=== PATIENT | male | born 1930 | race Caucasian/White ===

== ENCOUNTER 2017-08-12 17:26 | Inpatient (IN) ==
--- NOTE | 2017-08-12 17:55 | Emergency Department Note ---
Disposition Clinical Impression: Altered mental status Qualifiers: Altered mental status type: unspecified Qualified Code(s): R41.82 - Altered mental status, unspecified Fever Qualifiers: Fever type: unspecified Qualified Code(s): R50.9 - Fever, unspecified Disposition: Admitted As Inpatient Condition: Fair Referrals: Keven Rice MD [Primary Care Provider] - Forms: ED Satisfaction Letter Time of Disposition: 21:46 General Adult HPI - General Chief complaint: ED Altered Mental Status Stated complaint: AMS Time Seen by Provider: 08/12/17 17:27 Source: patient, EMS Mode of arrival: ambulatory Limitations: no limitations Nursing Notes Reviewed: Yes Vital Signs Reviewed: Yes - History of Present Illness HPI Narrative: Patient is an 86-year-old male that presents the emergency department with altered mental status. Family states that he seemed to be not acting himself this morning when he woke up. States that he seemed to be intermittently confused throughout the day and became weaker as the day went on. Patient states that he has been coughing and is coughing up a small amount of mucus. Family states that he said he had a peak today but was unable to produce any urine but has not been complaining of any urinary symptoms. States that he has felt warm to the touch but did not measure any fever. Patient states that he is just overall feeling weak at this time. Pain Scale: 0 - Related Data Home Medications Medication Instructions Recorded Confirmed Glimepiride [Amaryl] 1 mg PO BID 08/12/17 08/12/17 Lisinopril [Zestril] 40 mg PO DAILY 08/12/17 08/12/17 Metformin HCl [Glucophage] 1,000 mg PO BIDWM 08/12/17 08/12/17 Metoprolol Succinate [Toprol Xl] 50 mg PO DAILY 08/12/17 08/12/17 Sildenafil Citrate [Revatio] 20 - 100 mg PO DAILY PRN 08/12/17 08/12/17 Simvastatin [Zocor] 20 mg PO HS 08/12/17 08/12/17 Triamterene/Hydrochlorothiazid 1 cap PO DAILY 08/12/17 08/12/17 [Dyazide 37.5-25 Capsule] Allergies Allergy/AdvReac Type Severity Reaction Status Date / Time No Known Allergies Allergy Verified 08/12/17 17:38 All systems ED: reviewed and negative except as stated. Constitutional: Reports: fever Cardiovascular: Denies: chest pain Respiratory: Reports: cough, sputum production Gastrointestinal: Denies: abdominal pain Genitourinary: Reports: other (Difficulty urinating ) Neurological: Reports: weakness Past Medical History - Past Medical History Medical history: Reports: diabetes, hypertension Psychiatric history: Reports: no psych history - Social History Smoking Status: Never smoker Alcohol use: Reports: rarely Drug use: Reports: none Physical Exam - General Limitations: altered mental status General appearance: in no apparent distress, lethargic - Head Head exam: atraumatic, normocephalic - Eye Eye exam: Present: normal appearance, EOMI - Neck Neck exam: Present: normal inspection, full ROM, trachea midline - Respiratory Respiratory exam: Present: other (Crackles in bilateral bases). Absent: respiratory distress, wheezes - Cardiovascular Cardiovascular exam: Present: normal rhythm, irregular rhythm, normal heart sounds, +S1, +S2 - Abdominal Exam Abdominal exam: Present: soft, Non-Tender, normal bowel sounds - Neurological Exam Neurological exam: Present: alert, oriented X3, CN II-XII intact - Expanded Neurological Exam Cranial nerves: EOM function (II, III, IV, ): Normal, facial sensation (V): Normal, facial palsy (VII): Normal, gag reflex (IX): Normal, spinal accessory function (XI): Normal, tongue deviation (XII): Normal Cerebellar function: finger to nose: Normal Motor strength - LUE: 5/5 Motor strength - RUE: 5/5 Motor strength - LLE: 5/5 Motor strength - RLE: 5/5 Sensory exam upper extremity: light touch: Normal Sensory exam lower extremity: light touch: Normal Coma Scale Eye Opening: Spontaneous Coma Scale Motor Response: Obeys Commands Coma Scale Verbal Response: Oriented Coma Scale Total: 15 - Psychiatric Psychiatric exam: Present: normal affect, normal mood - Skin Skin exam: Present: warm, dry, other (Patient has multiple skin lesions on the top of his head) Course - Reevaluation(s) Reevaluation #1: Patient states that he is feeling decent at this time but still weak. Patient was found to have a elevated white blood cell count on CBC. There is no identifiable source of infection at this time. Due to the patient being febrile , and respiratory symptoms, negative chest x-ray, negative urinalysis and no acute findings on CT scan we will perform an influenza swab to evaluate for possible influenza. Time: 19:40 - Consultations Consultation #1: Called and spoke with the admitting hospitalist requested that the patient be started on Rocephin, vancomycin and acyclovir. We will also place a consult at the request for interventional radiology to perform a lumbar puncture. The admitting hospitalist also requested that a CT scan of the chest to rule out possible. Patient has been accepted to their service. The patient be admitted to the hospital this time for further evaluation and management. Time: 21:43 Vital Signs Temperature 100.8 F H 08/12/17 17:35 Pulse Rate 88 08/12/17 17:35 Respiratory Rate 18 08/12/17 17:35 Blood Pressure 127/60 08/12/17 17:35 O2 Sat by Pulse Oximetry 93 08/12/17 17:35 Temperature 99.4 F 08/12/17 21:52 Pulse Rate 80 08/12/17 21:52 Respiratory Rate 16 08/12/17 21:52 Blood Pressure 120/59 08/12/17 21:52 O2 Sat by Pulse Oximetry 93 08/12/17 21:52 Oxygen Delivery Oxygen Delivery Room Air Medical Decision Making - MDM Narrative Medical decision making narrative: Patient presents emergency Department with altered mental status laboratory testing and a CT scan of the head will be obtained. Patient had an elevated white blood cell count. No evidence of UTI. Chest x-ray was negative, CT scan of the head did not show any acute intracranial abnormality. Patient was febrile of 100.8 while here in the emergency department. Patient continued to have generalized weakness and fatigue. There is no identifiable source of infection at this time. The patient will need to be admitted to the hospital for further evaluation and management. An influenza swab was sent and is negative. - Medical Records Medical records reviewed: Yes I reviewed the patient's medical records. - Lab Data Lab results reviewed: Yes I reviewed the patient's lab results. Result diagrams: 08/12/17 18:20 08/12/17 18:20 Lab Results 08/12/17 08/12/17 08/12/17 Range/Units 17:41 18:20 18:20 WBC 21.0 H (4.3-11.1) K/mcL RBC 4.38 (4.19-5.50) M/mcL Hgb 12.9 (12.9-16.9) g/dL Hct 39.2 (37.5-50.1) % MCV 89.5 (83.0-100.0) fL MCH 29.5 (28.0-33.3) pg MCHC 32.9 (31.6-35.5) g/dL RDW 13.7 (11.5-14.5) % Plt Count 218 (140-400) K/mcL MPV 9.7 (9.4-12.4) fL Immature Gran % 0.8 (0-4) % Seg Neutrophils % 92.1 % Lymphocytes % 1.8 % Monocytes % 5.2 % Eosinophils % 0.0 % Basophils % 0.1 % Neutrophils # 19.3 H (1.6-8.9) K/mcL Lymphocytes # 0.4 L (0.6-4.6) K/mcL Monocytes # 1.1 (0.0-1.3) K/mcL Eosinophils # 0.0 (0.0-0.6) K/mcL Basophils # 0.0 (0.0-0.2) K/mcL PT 12.8 H (9.4-12.1) Seconds INR 1.1 APTT 28.5 (26.0-36.0) Seconds Sodium (136-145) mEq/L Potassium (3.5-5.1) mEq/L Chloride (98-107) mEq/L Carbon Dioxide (23-29) mEq/L BUN (8-23) mg/dL Creatinine (0.70-1.30) mg/dL Est GFR ( Amer) (> 60) Est GFR (Non-Af Amer) (> 60) BUN/Creatinine Ratio (6-26) Glucose (70-105) mg/dL POC Glucose 158 H (70-99) mg/dL Calculated Osmolality (280-300) Lactic Acid (0.5-2.2) mmol/L Calcium (8.6-10.3) mg/dL Total Bilirubin (0.3-1.0) mg/dL Direct Bilirubin (0.0-0.2) mg/dL Indirect Bilirubin (0.0-1.2) mg/dL AST (13-39) Units/L ALT (7-52) Units/L Alkaline Phosphatase (34-104) Units/L Troponin I (< 0.04) ng/mL Serum Total Protein (6.4-8.9) g/dL Albumin (3.5-5.7) g/dL Globulin (2.4-3.5) g/dL Albumin/Globulin Ratio (1.1-2.2) Urine Color (Yellow) Urine Clarity (Clear) Urine pH (5.0-8.0) pH Units Ur Specific Hope (1.010-1.025) Urine Protein (Neg-Trace) mg/dL Urine Glucose (UA) (Normal) mg/dL Urine Ketones (Negative) mg/dL Urine Blood (Negative) Urine Nitrite (Negative) Urine Bilirubin (Negative) Urine Urobilinogen (Normal) mg/dL Ur Leukocyte Esterase (Negative) Urine Microscopic RBC (0-3) per hpf Urine Microscopic WBC (0-3) per hpf Ur Squamous Epith Cells (None-Few) per lpf Urine Bacteria (None-Few) per hpf Hyaline Casts (None-Few) per lpf Ur Culture Indicated? (NO) Ethyl Alcohol (Less than 10) mg/dL 08/12/17 08/12/17 08/12/17 Range/Units 18:20 18:28 18:40 WBC (4.3-11.1) K/mcL RBC (4.19-5.50) M/mcL Hgb (12.9-16.9) g/dL Hct (37.5-50.1) % MCV (83.0-100.0) fL MCH (28.0-33.3) pg MCHC (31.6-35.5) g/dL RDW (11.5-14.5) % Plt Count (140-400) K/mcL MPV (9.4-12.4) fL Immature Gran % (0-4) % Seg Neutrophils % % Lymphocytes % % Monocytes % % Eosinophils % % Basophils % % Neutrophils # (1.6-8.9) K/mcL Lymphocytes # (0.6-4.6) K/mcL Monocytes # (0.0-1.3) K/mcL Eosinophils # (0.0-0.6) K/mcL Basophils # (0.0-0.2) K/mcL PT (9.4-12.1) Seconds INR APTT (26.0-36.0) Seconds Sodium 134 L (136-145) mEq/L Potassium 4.1 (3.5-5.1) mEq/L Chloride 99 (98-107) mEq/L Carbon Dioxide 25 (23-29) mEq/L BUN 26 H (8-23) mg/dL Creatinine 1.12 (0.70-1.30) mg/dL Est GFR ( Amer) > 60 (> 60) Est GFR (Non-Af Amer) > 60 (> 60) BUN/Creatinine Ratio 23 (6-26) Glucose 197 H (70-105) mg/dL POC Glucose (70-99) mg/dL Calculated Osmolality 288 (280-300) Lactic Acid 1.4 (0.5-2.2) mmol/L Calcium 9.4 (8.6-10.3) mg/dL Total Bilirubin 0.5 (0.3-1.0) mg/dL Direct Bilirubin 0.3 H (0.0-0.2) mg/dL Indirect Bilirubin 0.2 (0.0-1.2) mg/dL AST 13 (13-39) Units/L ALT 11 (7-52) Units/L Alkaline Phosphatase 56 (34-104) Units/L Troponin I < 0.03 (< 0.04) ng/mL Serum Total Protein 6.6 (6.4-8.9) g/dL Albumin 3.8 (3.5-5.7) g/dL Globulin 2.8 (2.4-3.5) g/dL Albumin/Globulin Ratio 1.4 (1.1-2.2) Urine Color Yellow (Yellow) Urine Clarity Clear (Clear) Urine pH 5.0 (5.0-8.0) pH Units Ur Specific Hope 1.022 (1.010-1.025) Urine Protein Negative (Neg-Trace) mg/dL Urine Glucose (UA) Normal (Normal) mg/dL Urine Ketones 15 H (Negative) mg/dL Urine Blood Moderate H (Negative) Urine Nitrite Negative (Negative) Urine Bilirubin Negative (Negative) Urine Urobilinogen Normal (Normal) mg/dL Ur Leukocyte Esterase Negative (Negative) Urine Microscopic RBC 15-30 H (0-3) per hpf Urine Microscopic WBC 0-3 (0-3) per hpf Ur Squamous Epith Cells Many H (None-Few) per lpf Urine Bacteria None Seen (None-Few) per hpf Hyaline Casts None Seen (None-Few) per lpf Ur Culture Indicated? NO (NO) Ethyl Alcohol < 10 (Less than 10) mg/dL - Radiology Data Radiology results reviewed: Yes I reviewed the patient's radiology results. Chest X-Ray 08/12/17 17:50 IMPRESSION: No acute cardiopulmonary disease. D/ / 08/12/2017 19:03:58 Clarke Jimenez MD / mikala Interpreting Provider: Clarke Jimenez MD Head CT 08/12/17 17:50 IMPRESSION: No acute intracranial abnormality. D/ / Raúl Calhoun / Raúl Calhoun Interpreting Provider: Raúl Calhoun - EKG Data EKG #1 EKG attestation: Yes I reviewed and interpreted this EKG. EKG results narrative: EKG showed a sinus rhythm with sinus arrhythmia with some nonspecific ST changes. Rate of 76 bpm, AL interval 195, QRS duration of 87, QTc of 391 with a normal axis. Patient's EKG was compared to previous on 05/13/14 which showed a sinus rhythm at a rate of 72 bpm. Attestation Statement - Attestation Attestation: I examined this patient and my medical decision-making was reviewed with the Resident Physician. I agree with the documented findings, disposition and treatment plan as described except to the extent set forth below. Findings consistent with altered mental status as well as systemic inflammatory response syndrome. I do not have a obvious source of infection although he does have a lesion on his scalp. He is non-meningismus on exam. He is following commands and is no neurological deficit. He has no evidence of urinary tract infection or pulmonary infection but he does describe symptoms of URI. We will obtain a CT scan of the chest rule out underlying pneumonia that might not be present on x-ray. We will send viral respiratory pattern and attempt to prevent lumbar puncture. Due to the patient's body habitus as well as age I do not feel bedside lumbar puncture will be obtainable and thus I will place an order for interventional radiology-assisted lumbar puncture at the request of her hospitalist team. We will start antibiotics to cover for meningeal infection although I do not suspect this is the cause of the patient's fever especially in the absence of meningismus. The patient will be admitted to the hospital for further management.
[2017-08-12 18:41] LABS: Basophils % 0.1 %; Hematocrit 39.2 % (37.5-50.1); Hemoglobin 12.9 g/dL (12.9-16.9); Immature Granulocytes % 0.8 % (0-4); Lymphocytes # 0.4 K/mcL (0.6-4.6); Lymphocytes % 1.8 %; Mean Corpuscular HGB Conc 32.9 g/dL (31.6-35.5); Mean Corpuscular Hemoglobin 29.5 pg (28.0-33.3); Mean Corpuscular Volume 89.5 fL (83.0-100.0); Mean Platelet Volume 9.7 fL (9.4-12.4); Monocytes # 1.1 K/mcL (0.0-1.3); Monocytes % 5.2 %; Neutrophils # 19.3 K/mcL (1.6-8.9); Platelet Count 218 K/mcL (140-400); Red Blood Count 4.38 M/mcL (4.19-5.50); Red Cell Distribution Width 13.7 % (11.5-14.5); Segmented Neutrophils % 92.1 %
[2017-08-12 18:48] LABS: INR 1.1; Prothrombin Time 12.8 Seconds (9.4-12.1)
[2017-08-12 18:51] LABS: Activated Partial Thrombo Time 28.5 Seconds (26.0-36.0)
[2017-08-12 18:51] LABS: Bilirubin,Urine Negative (Negative); Blood,Urine Moderate (Negative); Clarity,Urine Clear (Clear); Color,Urine Yellow (Yellow); Glucose,Urine (UA) Normal (Normal); Ketones,Urine 15 mg/dL (Negative); Leukocyte Esterase,Urine Negative (Negative); Nitrite,Urine Negative (Negative); Protein,Urine Negative (Neg-Trace); Specific Gravity,Urine 1.022 (1.010-1.025); Urobilinogen,Urine Normal (Normal)
[2017-08-12 18:53] LABS: Bacteria,Urine None Seen per hpf (None-Few); Hyaline Casts,Urine None Seen per lpf (None-Few); RBC,Urine 15-30 per hpf (0-3); Squamous Epithelial Cell,Urine Many per lpf (None-Few); WBC,Urine 0-3 per hpf (0-3)
[2017-08-12 19:03] LABS: Alanine Aminotransferase 11 Units/L (7-52); Albumin 3.8 g/dL (3.5-5.7); Albumin/Globulin Ratio 1.4 (1.1-2.2); Alkaline Phosphatase 56 Units/L (34-104); Aspartate Amino Transferase 13 Units/L (13-39); BUN/Creatinine Ratio 23 (6-26); Bilirubin,Direct 0.3 mg/dL (0.0-0.2); Bilirubin,Indirect 0.2 mg/dL (0.0-1.2); Bilirubin,Total 0.5 mg/dL (0.3-1.0); Blood Urea Nitrogen 26 mg/dL (8-23); Calcium 9.4 mg/dL (8.6-10.3); Carbon Dioxide 25 mEq/L (23-29); Chloride 99 mEq/L (98-107); Ethanol < 10 mg/dL (Less than 10); Globulin 2.8 g/dL (2.4-3.5); Glucose 197 mg/dL (70-105); Osmolality,Calculated 288 (280-300); Potassium 4.1 mEq/L (3.5-5.1); Sodium 134 mEq/L (136-145); Total Protein 6.6 g/dL (6.4-8.9); Troponin I < 0.03 ng/mL (< 0.04); eGFR For African Americans > 60 (> 60); eGFR For Non-African Americans > 60 (> 60)
[2017-08-12] MEDS ORDERED: Acetaminophen 325 MG TABLET PO ONE (19:58)
[2017-08-12] MEDS ORDERED: Piperacillin/Tazobactam 3.375 GM in 0.9 % Sodium Chloride Mini Bag 100 ML IVPB ONE (21:33)
[2017-08-12] MEDS ORDERED: cefTRIAXone 2,000 MG in Water for inj. (sterile) 20 ML 20 ML IVP ONE (21:38)
[2017-08-12] MEDS ORDERED: Acyclovir 500 MG in D5% in Water 100 ML IVPB ONE (21:38)
[2017-08-12 23:01] LABS: Adenovirus Not Detected (Not Detect); Bordetella Pertussis Not Detected (Not Detect); Chlamydophila pneumoniae Not Detected (Not Detect); Coronavirus 229E Not Detected (Not Detect); Coronavirus HKU1 Not Detected (Not Detect); Coronavirus NL63 Not Detected (Not Detect); Coronavirus OC43 Not Detected (Not Detect); Human Metapneumovirus Not Detected (Not Detect); Human Rhinovirus/Enterovirus Not Detected (Not Detect); Influenza A Subtype 2009 H1 Not Detected (Not Detect); Influenza A Untypeable Not Detected (Not Detect); Influenza B Not Detected (Not Detect); Mycoplasma pneumoniae Not Detected (Not Detect); Parainfluenza Virus 1 Not Detected (Not Detect); Parainfluenza Virus 2 Not Detected (Not Detect); Parainfluenza Virus 3 Not Detected (Not Detect); Parainfluenza Virus 4 Not Detected (Not Detect); Respiratory Syncytial Virus Not Detected (Not Detect)
[2017-08-12] MEDS ORDERED: Naloxone 0.4 MG/ML INJ IVP PRN (23:05)
--- NOTE | 2017-08-12 23:21 | Internal Med History&Physical ---
Date of Encounter: 08/13/17 Time of Encounter: 23:08 Internal Medicine - H&P: HPI Chief complaint: Altered mental status Admitted From: Emergency Dept Plans for Post Hospital Care: Home History of present illness: Mr. Astorga is a 86 year old male with a past medical history of hypertension, hyperlipidemia, diabetes, CAD who presented to [facility] complaining of altered mental status. He reports feeling fatigued since yesterday which has continued to worsen to the point that today he was unable to get out of bed. His family were at bedside and reported that today he seemed disoriented. He has had productive cough, nausea, decreased appetite. She reports decreased urination however his said that he has urinated multiple times today. He denies fevers, chills, night sweats, chest pain, shortness of breath, vomiting, abdominal pain, dysuria, diarrhea, melena, hematechezia. He denied recent trauma, falls. 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 That lesion is still currently healing. He reports losing about 20 pounds over the last year which he stated was intentional. He is up today on colonoscopies. He is a former smoker who quit 60 years ago, denied alcohol and drug use. He has a full code. In the ED he was found to have a fever of 100.8 and white blood cell count 21. There is no clear source of infection demonstrated by imaging or labs. Chest CT , chest x-ray, head CT for all unremarkable. He tested negative for influenza. Lactic acid, BMP, hepatic panel, troponin unremarkable. Urinalysis demonstrated blood. Blood cultures were taken. The patient is not demonstrating physical signs of meningitis, however it cannot be ruled out and due to body habitus interventional radiology is to do a lumbar puncture tomorrow. The patient was given IV acyclovir, vancomycin, Zosyn. Past Med Surg Social Fam HX - Past Medical History Attestation: Yes The following information was validated with the patient. Source: patient Medical history: coronary artery disease, diabetes, hyperlipidemia, hypertension Psychiatric history: no psych history - Past Surgical History Surgical History: angioplasty/stent - Social History Smoking Status: Former smoker Alcohol use: rarely Drug use: none - Family History Son Hx Family Cancer: Yes (Prostate) Internal Medicine - H&P: Meds Glimepiride [Amaryl] 1 mg PO BID 08/12/17 [History] Lisinopril [Zestril] 40 mg PO DAILY 08/12/17 [History] Metformin HCl [Glucophage] 1,000 mg PO BIDWM 08/12/17 [History] Metoprolol Succinate [Toprol Xl] 50 mg PO DAILY 08/12/17 [History] Sildenafil Citrate [Revatio] 20 - 100 mg PO DAILY PRN 08/12/17 [History] Simvastatin [Zocor] 20 mg PO HS 08/12/17 [History] Triamterene/Hydrochlorothiazid [Dyazide 37.5-25 Capsule] 1 cap PO DAILY [History] 3 Allergy/AdvReac Type Severity Reaction Status Date / Time No Known Allergies Allergy Verified 08/12/17 17:38 All Systems PM: A 10-system review of systems was performed and is negative for pertinent findings except as documented above in the HPI. - Constitutional Constitutional: fatigue, weakness, no chills, no fever(s), no falls - EENT Eyes: no change in vision - Cardiovascular Cardiovascular ROS IM: no chest pain, no dyspnea, no palpitations - Respiratory Respiratory: cough, no dyspnea, no hemoptysis, no wheezing - Gastrointestinal Gastrointestinal: early satiety, nausea, no abdominal pain, no cramping, no diarrhea, no hematemesis, no hematochezia, no melena, no vomiting - Genitourinary Genitourinary ROS male: urinary frequency, no difficulty urinating, no dysuria, no hematuria - Musculoskeletal Musculoskeletal ROS IM: no arthralgias - Integumentary Integumentary IM: new lesions (head lesions), no erythema - Neurological Neurological ROS: confusion, no convulsions - Psychiatric Psychiatric: confusion - Constitutional Vitals: Temp Pulse Resp BP Pulse Ox 99.4 F 80 16 120/59 93 08/12/17 21:52 08/12/17 21:52 08/12/17 21:52 08/12/17 21:52 08/12/17 21:52 General appearance: Present: A&O X 2 (Person place), pleasant, no acute distress - Head Head exam: Absent: normal inspection (Lesions on head ) - Eye Eye exam: Present: normal appearance. Absent: conjunctival injection, nystagmus - Neck Neck exam general surgery: Absent: tenderness, nuchal rigidity - Respiratory Respiratory exam: Present: CTAB. Absent: rhonchi, wheezes - Cardiovascular Cardiovascular exam: Present: RRR. Absent: systolic murmur - GI/Abdominal GI/Abdominal exam: Present: normal bowel sounds, soft. Absent: firm, guarding, tenderness - Extremities Exam Extremities exam: Present: pedal edema. Absent: calf tenderness - Expanded Lower Extremities Exam Lower Leg exam: Present: swelling. Absent: tenderness - Back Exam Back exam: Absent: CVA tenderness (L), CVA tenderness (R) - Neurological Exam Neurological exam: Present: alert. Absent: facial droop, speech deficit - Psychiatric Psychiatric exam: Present: normal affect, normal mood - Skin Skin exam: Present: dry, intact Internal Med - H&P Results - Labs CBC & Chem 7: 08/12/17 18:20 08/12/17 18:20 Labs: Short CBC 08/12/17 Range/Units 18:20 WBC 21.0 H (4.3-11.1) K/mcL Hgb 12.9 (12.9-16.9) g/dL Hct 39.2 (37.5-50.1) % Plt Count 218 (140-400) K/mcL Neutrophils # 19.3 H (1.6-8.9) K/mcL BMP 08/12/17 18:20 Sodium 134 L Potassium 4.1 Chloride 99 Carbon Dioxide 25 BUN 26 H Creatinine 1.12 Glucose 197 H Calcium 9.4 Cardiac Enzymes 08/12/17 Range/Units 18:20 Troponin I < 0.03 (< 0.04) ng/mL Liver Function 08/12/17 Range/Units 18:20 Total Bilirubin 0.5 (0.3-1.0) mg/dL Direct Bilirubin 0.3 H (0.0-0.2) mg/dL AST 13 (13-39) Units/L ALT 11 (7-52) Units/L Alkaline Phosphatase 56 (34-104) Units/L Albumin 3.8 (3.5-5.7) g/dL Urine 08/12/17 Range/Units 18:40 Urine Color Yellow (Yellow) Urine Clarity Clear (Clear) Urine pH 5.0 (5.0-8.0) pH Units Ur Specific Kramer 1.022 (1.010-1.025) Urine Protein Negative (Neg-Trace) mg/dL Urine Glucose (UA) Normal (Normal) mg/dL - Impressions ITS Impressions Chest X-Ray 08/12/17 17:50 IMPRESSION: No acute cardiopulmonary disease. D/ / 08/12/2017 19:03:58 Clarke Jimenez MD / mikala Interpreting Provider: Clarke Jimenez MD Head CT 08/12/17 17:50 IMPRESSION: No acute intracranial abnormality. D/ / Raúl Calhoun / Raúl Calhoun Interpreting Provider: Raúl Calhoun Chest CT 08/12/17 21:37 IMPRESSION: Dependent airspace disease in both lungs, likely atelectasis. There is no consolidation to suggest pneumonia. D/ / Adalberto Castorena / Adalberto Castorena Interpreting Provider: Adalberto Castorena - Assessment and plan (1) Elevated WBC count Current Visit: Yes Status: Acute Assessment and plan: Elevated white blood cell count 21. Infection source and etiology is unknown. Patient has felt fatigued and weak since yesterday which worsened today to the point that he was unable to get out of bed. He is had productive cough, nausea , decreased urination. Denies trauma, fever, chills, shortness of breath, chest pain, abdominal pain, dysuria, neck tenderness, headache. He is no clinical manifestations of meningitis. Labs and imaging are unremarkable including CXR, chest CT, head CT, BMP, hepatic panel, troponin, lipase, respiratory infectious panel. Urinalysis moderate blood. -interventional radiology to perform lumbar puncture to rule out meningitis. -Continue IV acyclovir, Rocephin, vancomycin -Blood culture pending -monitor CBC -strep and legionella pending -consider infectious disease or hematology consult if WBC remains elevated Qualifiers: Leukocytosis type: unspecified Qualified Code(s): D72.829 - Elevated white blood cell count, unspecified (2) Fever Current Visit: Yes Status: Acute Assessment and plan: Fever of unknown origin 100.8 on admission. Fever now 99.4 after given Tylenol. -Will continue to monitor -see plan above Qualifiers: Fever type: unspecified Qualified Code(s): R50.9 - Fever, unspecified (3) Altered mental status Current Visit: Yes Status: Acute Assessment and plan: Family reported the patient was disoriented this morning. However the patient is alert and oriented to person and place. Family reports he is at baseline and is no longer disoriented. Qualifiers: Altered mental status type: unspecified Qualified Code(s): R41.82 - Altered mental status, unspecified (4) Hypertension Current Visit: Yes Status: Acute Assessment and plan: History of hypertension. BP stable continue home medications of metoprolol, lisinopril, triamterene Qualifiers: Qualified Code(s): I10 - Essential (primary) hypertension (5) CAD (coronary artery disease) Current Visit: Yes Status: Acute Assessment and plan: history of CAD with stents. Continue home simvastatin and aspirin Qualifiers: Qualified Code(s): I25.10 - Atherosclerotic heart disease of [place] coronary artery without angina pectoris (6) DVT prophylaxis Current Visit: Yes Status: Acute Assessment and plan: heparin sq - Time Spent With Patient Total time spent is greater than 50% in coordination of care (as documented) at patient's floor/unit and/or counseling patient:
[2017-08-13] MEDS: 0.9 % Sodium Chloride 1,000 ML IVC SCH ×2 (01:23→08:48)
[2017-08-13 04:24] LABS: Enterococcus by PCR Not Detected (Not Detect)
[2017-08-13 04:25] LABS: Acinetobacter baumannii by PCR Not Detected (Not Detect); Candida albicans by PCR Not Detected (Not Detect); Candida glabrata by PCR Not Detected (Not Detect); Candida krusei by PCR Not Detected (Not Detect); Candida parapsilosis by PCR Not Detected (Not Detect); Candida tropicalis by PCR Not Detected (Not Detect); Escherichia coli by PCR Not Detected (Not Detect); Klebsiella oxytoca by PCR Not Detected (Not Detect); Klebsiella pneumoniae by PCR Not Detected (Not Detect); Pseudomonas aeruginosa by PCR Not Detected (Not Detect); Serratia marcescens by PCR Not Detected (Not Detect); Staphylococcus aureus by PCR Not Detected (Not Detect); Streptococcus agalactiae(B)PCR ***DETECTED*** (Not Detect); Streptococcus by PCR ***DETECTED*** (Not Detect); Streptococcus pneumoniae PCR Not Detected (Not Detect); Streptococcus pyogenes (A) PCR Not Detected (Not Detect)
[2017-08-13 05:25] LABS: Basophils % 0.1 %; Hematocrit 33.3 % (37.5-50.1); Hemoglobin 10.9 g/dL (12.9-16.9); Lymphocytes # 0.8 K/mcL (0.6-4.6); Lymphocytes % 3.8 %; Mean Corpuscular HGB Conc 32.7 g/dL (31.6-35.5); Mean Corpuscular Hemoglobin 28.6 pg (28.0-33.3); Mean Corpuscular Volume 87.4 fL (83.0-100.0); Mean Platelet Volume 9.4 fL (9.4-12.4); Monocytes % 4.8 %; Neutrophils # 18.4 K/mcL (1.6-8.9); Platelet Count 190 K/mcL (140-400); Red Blood Count 3.81 M/mcL (4.19-5.50); Segmented Neutrophils % 90.3 %
[2017-08-13 05:44] LABS: BUN/Creatinine Ratio 22 (6-26); Blood Urea Nitrogen 28 mg/dL (8-23); Calcium 8.3 mg/dL (8.6-10.3); Carbon Dioxide 22 mEq/L (23-29); Chloride 100 mEq/L (98-107); Glucose 191 mg/dL (70-105); Osmolality,Calculated 289 (280-300); Potassium 3.7 mEq/L (3.5-5.1); Sodium 134 mEq/L (136-145); eGFR For African Americans > 60 (> 60); eGFR For Non-African Americans 55 (> 60)
--- NOTE | 2017-08-13 06:36 | Electrocardiograph Report ---
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
[2017-08-13 07:34] LABS: Acinetobacter baumannii by PCR Not Detected (Not Detect); Candida albicans by PCR Not Detected (Not Detect); Candida glabrata by PCR Not Detected (Not Detect); Candida krusei by PCR Not Detected (Not Detect); Candida parapsilosis by PCR Not Detected (Not Detect); Candida tropicalis by PCR Not Detected (Not Detect); Enterococcus by PCR Not Detected (Not Detect); Escherichia coli by PCR Not Detected (Not Detect); Klebsiella oxytoca by PCR Not Detected (Not Detect); Klebsiella pneumoniae by PCR Not Detected (Not Detect); Pseudomonas aeruginosa by PCR Not Detected (Not Detect); Serratia marcescens by PCR Not Detected (Not Detect); Staphylococcus aureus by PCR Not Detected (Not Detect); Streptococcus pneumoniae PCR Not Detected (Not Detect); Streptococcus pyogenes (A) PCR Not Detected (Not Detect); blaKPC Carbapenem-Resist Gene Not Detected (Not Detect); mecA Methicillin-Resist Gene Not Detected (Not Detect); vanA/B Vancomycin-Resist Genes Not Detected (Not Detect)
[2017-08-13 07:35] LABS: Streptococcus agalactiae(B)PCR ***DETECTED*** (Not Detect); Streptococcus by PCR ***DETECTED*** (Not Detect)
[2017-08-13] MEDS ORDERED: Acyclovir 500 MG in D5% in Water 100 ML IVPB SCH (08:00)
--- NOTE | 2017-08-13 08:04 | Internal Med Progress Note ---
<DonatoWilliams Nneka - Last Filed: 08/13/17 15:30> Date of Encounter: 08/13/17 Time of Encounter: 09:58 - Assessment and plan (1) Sepsis Current Visit: Yes Status: Acute Assessment and plan: Patient blood culture positive for Strep B of unknown source. Patient had negative chest xray and urinalysis on admission. Patient is not showing any signs of cellulitis or infected wounds, and also does not exhibit symptoms of meningitis. We are treating the bacteremia with Penicillin, and will continue to monitor the patients white blood cell count and mental status. Qualifiers: Sepsis type: Streptococcus group B Qualified Code(s): A40.1 - Sepsis due to streptococcus, group B (2) Altered mental status Current Visit: Yes Status: Resolved Assessment and plan: Altered mental status due to sepsis. Patient is alert and oriented x 3 as of this morning. We will continue to monitor for any change in mental status. Qualifiers: Altered mental status type: unspecified Qualified Code(s): R41.82 - Altered mental status, unspecified (3) Hypertension Current Visit: Yes Status: Chronic Assessment and plan: Controlled, continuing patients home medication. Qualifiers: Hypertension type: essential hypertension Qualified Code(s): I10 - Essential (primary) hypertension (4) CAD (coronary artery disease) Current Visit: Yes Status: Chronic Assessment and plan: Chronic, we are continuing home medications. Qualifiers: Coronary Disease-Associated Artery/Lesion type: [place] artery [place] vs. transplanted heart: [place] heart Associated angina: without angina Qualified Code(s): I25.10 - Atherosclerotic heart disease of [place] coronary artery without angina pectoris (5) DVT prophylaxis Current Visit: Yes Status: Acute Assessment and plan: Patient is currently on subq lovenox 40mg daily - Time Spent With Patient Total time spent is greater than 50% in coordination of care (as documented) at patient's floor/unit and/or counseling patient: less than 15 minutes - Subjective Interval history: Patient seen and examined this morning. Patient resting comfortably in bed. Patient was able to tell me his name, birthday, the date, his location, and the current president. He complains of a cough but denies chest pain, abdominal pain , or shortness of breath. He states he is comfortable and has no other questions at this time. - Constitutional Vitals: Temp Pulse Resp BP Pulse Ox 99.9 F H 63 19 105/59 92 08/13/17 07:21 08/13/17 07:21 08/13/17 07:21 08/13/17 07:21 08/13/17 07:21 General appearance: Present: A&O X 3, pleasant, no acute distress Exam: On exam patient is alert and oriented to person, place, time, and situation. Head is normocephalic, with several superficial wounds in various states of healing. These wounds are non-erythematous and non-tender. Oropharynx is non-erythematous. Poor dentition. Heart regular rate and rhythm without murmur, rub or hillary. lungs are clear to auscultation without adventitia. Patient exhibits 5/5 motor strength in all four extremities. Abdomen is soft and non tender. Neck is supple without midline tenderness and with full range of motion. Submandibular lymphadenopathy present. Internal Medicine: Result - Labs CBC & Chem 7: 08/13/17 05:04 08/13/17 05:04 Labs: Short CBC 08/13/17 Range/Units 05:04 WBC 20.4 H (4.3-11.1) K/mcL Hgb 10.9 L D (12.9-16.9) g/dL Hct 33.3 L (37.5-50.1) % Plt Count 190 (140-400) K/mcL Neutrophils # 18.4 H (1.6-8.9) K/mcL BMP 08/13/17 05:04 Sodium 134 L Potassium 3.7 Chloride 100 Carbon Dioxide 22 L BUN 28 H Creatinine 1.26 Glucose 191 H Calcium 8.3 L - ABG Interpretation ABG results: PT/INR, D-dimer PT 12.8 Seconds (9.4-12.1) H 08/12/17 18:20 Consult Discharge Plan - Plan Referrals: Keven Rice MD [Primary Care Provider] - <Jayson Malloy - Last Filed: 08/13/17 21:07> Date of Encounter: 08/13/17 - Assessment and plan (1) Altered mental status Current Visit: Yes Status: Resolved Qualifiers: Altered mental status type: unspecified Qualified Code(s): R41.82 - Altered mental status, unspecified (2) Hypertension Current Visit: Yes Status: Chronic Qualifiers: Hypertension type: essential hypertension Qualified Code(s): I10 - Essential (primary) hypertension (3) CAD (coronary artery disease) Current Visit: Yes Status: Chronic Qualifiers: Coronary Disease-Associated Artery/Lesion type: [place] artery [place] vs. transplanted heart: [place] heart Associated angina: without angina Qualified Code(s): I25.10 - Atherosclerotic heart disease of [place] coronary artery without angina pectoris (4) DVT prophylaxis Current Visit: Yes Status: Acute (5) Sepsis Current Visit: Yes Status: Acute Qualifiers: Sepsis type: Streptococcus group B Qualified Code(s): A40.1 - Sepsis due to streptococcus, group B - Time Spent With Patient Total time spent is greater than 50% in coordination of care (as documented) at patient's floor/unit and/or counseling patient: - Constitutional Vitals: Temp Pulse Resp BP Pulse Ox 98.0 F 68 18 105/56 94 08/13/17 15:12 08/13/17 15:12 08/13/17 15:12 08/13/17 15:12 08/13/17 15:12 Internal Medicine: Result - Labs CBC & Chem 7: 08/13/17 05:04 08/13/17 05:04 Labs: Short CBC 08/13/17 Range/Units 05:04 WBC 20.4 H (4.3-11.1) K/mcL Hgb 10.9 L D (12.9-16.9) g/dL Hct 33.3 L (37.5-50.1) % Plt Count 190 (140-400) K/mcL Neutrophils # 18.4 H (1.6-8.9) K/mcL BMP 08/13/17 05:04 Sodium 134 L Potassium 3.7 Chloride 100 Carbon Dioxide 22 L BUN 28 H Creatinine 1.26 Glucose 191 H Calcium 8.3 L - ABG Interpretation ABG results: PT/INR, D-dimer PT 12.8 Seconds (9.4-12.1) H 08/12/17 18:20 - Attending Attestation I examined this patient and my medical decision-making was reviewed with the Resident Physician. I agree with the documented findings, disposition and treatment plan as described except to the extent set forth below. Patient states he is feeling good, No complaints. Tmax 100.4 F overnight. Physical exam: Gen: NAD pleasant, HEENT: No nuchal rigidity. CVS: RRR, lungs: CTAB. Ext: no edema, Neuro: no focal deficits, Skin: warm, healing lesions on scalp VS: Tmax 100.4 F overnight, BP, HR currently within normal limits. Labs; WBC 20.4k, was 21k yesterday Blood cultures: + GPC (both sets) 1. Acute encephalopathy - secondary to sepsis 2. Sepsis - unsure of source, suspect possibly respiaratory vs other. Possibly cellulitis from recent biopsy but skin exam does not have findings c/w infection. Less likely meningitis based on presentation and physical exam. Continue IV antibiotics de-escalate repeat blood cultures today Echocardiogram pending, evaluating for vegitations
[2017-08-13] MEDS ORDERED: Aminoglycoside Consult 1 EACH MC ONE (08:05)
[2017-08-13] MEDS ORDERED: Ampicillin 2 GM in 0.9 % Sodium Chloride Mini Bag 100 ML IVPB SCH (08:22)
[2017-08-13] MEDS ORDERED: Dextrose Gel 15 GM/37.5 ML TUBE PO PRN ×2 (08:28)
[2017-08-13] MEDS ORDERED: *HR* Dextrose 50 % in Water (Syg) 50 ML SYRINGE IVP PRN (08:28)
[2017-08-13] MEDS ORDERED: D5% in Water 1,000 ML IVC PRN (08:28)
[2017-08-13] MEDS: Insulin LISPRO 300 UNITS/3 ML VIAL SQ SCH ×4 (08:48→21:23)
[2017-08-13] MEDS ORDERED: cefTRIAXone 2,000 MG in Water for inj. (sterile) 20 ML 20 ML IVP SCH (09:00)
[2017-08-13] MEDS ORDERED: Lisinopril 20 MG TABLET PO SCH (09:00)
[2017-08-13] MEDS ORDERED: Acyclovir 750 MG in D5% in Water 250 ML IVPB SCH (12:00)
[2017-08-13] MEDS ORDERED: Penicillin G Potassium 2,000,000 UNIT in 0.9 % Sodium Chloride 100 ML IVPB SCH (12:00)
[2017-08-13] MEDS ORDERED: Acyclovir 900 MG in D5% in Water 250 ML IVPB SCH (12:00)
[2017-08-13] MEDS: Penicillin G Potassium 4,000,000 UNIT in 0.9 % Sodium Chloride 100 ML IVPB SCH ×3 (12:22→21:21)
[2017-08-13] MEDS ORDERED: Perflutren Lipid Microsphere 2 ML VIAL ONE (20:13)
[2017-08-14] MEDS: Penicillin G Potassium 4,000,000 UNIT in 0.9 % Sodium Chloride 100 ML IVPB SCH ×7 (00:54→23:49)
[2017-08-14] MEDS: *HR* Enoxaparin 40 MG/0.4 ML SYRINGE SQ SCH (05:00)
[2017-08-14 05:12] LABS: Basophils % 0.2 %; Eosinophils # 0.1 K/mcL (0.0-0.6); Eosinophils % 0.5 %; Hematocrit 35.4 % (37.5-50.1); Hemoglobin 11.8 g/dL (12.9-16.9); Immature Granulocytes % 0.4 % (0-4); Lymphocytes # 0.8 K/mcL (0.6-4.6); Lymphocytes % 7.6 %; Mean Corpuscular HGB Conc 33.3 g/dL (31.6-35.5); Mean Corpuscular Hemoglobin 29.6 pg (28.0-33.3); Mean Corpuscular Volume 88.9 fL (83.0-100.0); Mean Platelet Volume 9.9 fL (9.4-12.4); Monocytes # 0.8 K/mcL (0.0-1.3); Monocytes % 7.4 %; Neutrophils # 8.6 K/mcL (1.6-8.9); Platelet Count 190 K/mcL (140-400); Red Blood Count 3.98 M/mcL (4.19-5.50); Red Cell Distribution Width 14.1 % (11.5-14.5); Segmented Neutrophils % 83.9 %
[2017-08-14 05:28] LABS: BUN/Creatinine Ratio 23 (6-26); Blood Urea Nitrogen 22 mg/dL (8-23); Calcium 8.4 mg/dL (8.6-10.3); Carbon Dioxide 25 mEq/L (23-29); Chloride 105 mEq/L (98-107); Glucose 136 mg/dL (70-105); Osmolality,Calculated 289 (280-300); Potassium 3.5 mEq/L (3.5-5.1); Sodium 137 mEq/L (136-145); eGFR For African Americans > 60 (> 60); eGFR For Non-African Americans > 60 (> 60)
[2017-08-14] MEDS: Insulin LISPRO 300 UNITS/3 ML VIAL SQ SCH ×4 (08:52→22:03)
--- NOTE | 2017-08-14 13:25 | Internal Med Progress Note ---
<TanmayWilliams C - Last Filed: 08/14/17 13:44> Date of Encounter: 08/14/17 Time of Encounter: 13:23 - Assessment and plan (1) Hypertension Current Visit: Yes Status: Chronic Assessment and plan: Patient has controlled chronic hypertension. Patient is on lisinopril and metoprolol at home, will resume lisinopril tomorrow. Qualifiers: Hypertension type: essential hypertension Qualified Code(s): I10 - Essential (primary) hypertension (2) CAD (coronary artery disease) Current Visit: Yes Status: Chronic Assessment and plan: Patient has well controlled chronic coronary artery disease, he takes lisinopril , metoprolol, and simvastatin at home which will all be resumed tomorrow. Qualifiers: Coronary Disease-Associated Artery/Lesion type: [place] artery [place] vs. transplanted heart: [place] heart Associated angina: without angina Qualified Code(s): I25.10 - Atherosclerotic heart disease of [place] coronary artery without angina pectoris (3) DVT prophylaxis Current Visit: Yes Status: Acute Assessment and plan: Patient is recieving 40mg lovenox for DVT prophylaxis while in the hospital. (4) Sepsis Current Visit: Yes Status: Resolved Assessment and plan: Sepsis with strep b bacteremia being treated with PCN, white count has come down with no growth yet on culture from yesterday and return of mental status. We will watch for growth again tomorrow to ensure resolution of bacteremia. Qualifiers: Sepsis type: Streptococcus group B Qualified Code(s): A40.1 - Sepsis due to streptococcus, group B (5) Encephalopathy Current Visit: Yes Status: Resolved Assessment and plan: Patient was admitted with encephalopathy due to sepsis, from strep b bacteremia. The patients mental status has returned since, and is now A&Ox3. The plan will be to continue the penicillin and monitor the patients wbc count and blood culture to ensure that the infection has resolved. - Time Spent With Patient Total time spent is greater than 50% in coordination of care (as documented) at patient's floor/unit and/or counseling patient: - Subjective Interval history: Shawn states he is feeling much beter this morning, sitting up in bed and eating in breakfast. He states he is still feeling a bit weak but is otherwise well. He denied chest pain, shortness of breath, nausea or vomiting. Nursing did report that he had several bouts of watery diarrhea yesterday. - Constitutional Vitals: Temp Pulse Resp BP Pulse Ox 98.5 F 72 17 125/68 94 08/14/17 11:17 08/14/17 11:17 08/14/17 11:17 08/14/17 11:17 08/14/17 11:17 General appearance: Present: A&O X 3, pleasant, no acute distress Exam: Patient has several lesions in various stages of healing on his scalp that are without erythema or induration. His heart is in regular rate and rhythm without murmur, rub, or hillary. His lungs are clear to auscultation on the left with some mild rhonchorous sounds on the left, which were elicited by the patient coughing when asked to breathe deep. The cough cleared up most of the rhonchi. Strength 5/5 in all four extremities. Patient alert and oriented to person, place, time, and situation. - Head Head exam: Present: normocephalic Internal Medicine: Result - Labs CBC & Chem 7: 08/14/17 04:50 08/14/17 04:50 Labs: Short CBC 08/14/17 Range/Units 04:50 WBC 10.2 (4.3-11.1) K/mcL Hgb 11.8 L (12.9-16.9) g/dL Hct 35.4 L (37.5-50.1) % Plt Count 190 (140-400) K/mcL Neutrophils # 8.6 (1.6-8.9) K/mcL BMP 08/14/17 04:50 Sodium 137 Potassium 3.5 Chloride 105 Carbon Dioxide 25 BUN 22 Creatinine 0.94 Glucose 136 H Calcium 8.4 L - ABG Interpretation ABG results: PT/INR, D-dimer PT 12.8 Seconds (9.4-12.1) H 08/12/17 18:20 - Diagnostic Studies Other Images Additional comments: EV/EV echocardiogram w enhance Impressions: LVEF 55-60%. Mild pulmonary hypertension. No significant valvular dysfunction - no diagnostic vegetation by TTE, nor significant valvular regurgitation. If clinical suspicion persists, elective CINTIA would provide improved diagnostic sensitivity of vegetation. Consult Discharge Plan - Plan Referrals: Keven Rice MD [Primary Care Provider] - <Jayson Malloy - Last Filed: 08/14/17 17:44> Date of Encounter: 08/14/17 - Assessment and plan (1) Hypertension Current Visit: Yes Status: Chronic Qualifiers: Hypertension type: essential hypertension Qualified Code(s): I10 - Essential (primary) hypertension (2) CAD (coronary artery disease) Current Visit: Yes Status: Chronic Qualifiers: Coronary Disease-Associated Artery/Lesion type: [place] artery [place] vs. transplanted heart: [place] heart Associated angina: without angina Qualified Code(s): I25.10 - Atherosclerotic heart disease of [place] coronary artery without angina pectoris (3) DVT prophylaxis Current Visit: Yes Status: Acute (4) Sepsis Current Visit: Yes Status: Resolved Qualifiers: Sepsis type: Streptococcus group B Qualified Code(s): A40.1 - Sepsis due to streptococcus, group B (5) Encephalopathy Current Visit: Yes Status: Resolved - Time Spent With Patient Total time spent is greater than 50% in coordination of care (as documented) at patient's floor/unit and/or counseling patient: - Constitutional Vitals: Temp Pulse Resp BP Pulse Ox 99.0 F 72 18 148/72 97 08/14/17 16:22 08/14/17 16:22 08/14/17 16:22 08/14/17 16:22 08/14/17 16:22 Internal Medicine: Result - Labs CBC & Chem 7: 08/14/17 04:50 08/14/17 04:50 Labs: Short CBC 08/14/17 Range/Units 04:50 WBC 10.2 (4.3-11.1) K/mcL Hgb 11.8 L (12.9-16.9) g/dL Hct 35.4 L (37.5-50.1) % Plt Count 190 (140-400) K/mcL Neutrophils # 8.6 (1.6-8.9) K/mcL BMP 08/14/17 04:50 Sodium 137 Potassium 3.5 Chloride 105 Carbon Dioxide 25 BUN 22 Creatinine 0.94 Glucose 136 H Calcium 8.4 L - ABG Interpretation ABG results: PT/INR, D-dimer PT 12.8 Seconds (9.4-12.1) H 08/12/17 18:20 - Attending Attestation I examined this patient and my medical decision-making was reviewed with the Resident Physician. I agree with the documented findings, disposition and treatment plan as described except to the extent set forth below. Patient pleasant in no acute distress, no complaints. CVS and lung exam unremarkable. Skin exam shows scalp is unchanged since yesterday Vitals are stable WBC improving GBS bacteremia Continue treatment with IV antibiotics Await culture results.
[2017-08-15 04:43] LABS: Basophils % 0.3 %; Eosinophils # 0.1 K/mcL (0.0-0.6); Eosinophils % 1.9 %; Hematocrit 35.6 % (37.5-50.1); Hemoglobin 12.1 g/dL (12.9-16.9); Immature Granulocytes % 0.6 % (0-4); Lymphocytes # 1.1 K/mcL (0.6-4.6); Lymphocytes % 15.6 %; Mean Corpuscular Hemoglobin 29.9 pg (28.0-33.3); Mean Corpuscular Volume 87.9 fL (83.0-100.0); Mean Platelet Volume 9.7 fL (9.4-12.4); Monocytes # 0.5 K/mcL (0.0-1.3); Monocytes % 7.5 %; Neutrophils # 5.3 K/mcL (1.6-8.9); Platelet Count 210 K/mcL (140-400); Red Blood Count 4.05 M/mcL (4.19-5.50); Red Cell Distribution Width 13.8 % (11.5-14.5); Segmented Neutrophils % 74.1 %
[2017-08-15] MEDS: Penicillin G Potassium 4,000,000 UNIT in 0.9 % Sodium Chloride 100 ML IVPB SCH ×5 (04:50→22:31)
[2017-08-15] MEDS: *HR* Enoxaparin 40 MG/0.4 ML SYRINGE SQ SCH (04:51)
[2017-08-15 05:08] LABS: BUN/Creatinine Ratio 21 (6-26); Blood Urea Nitrogen 16 mg/dL (8-23); Calcium 8.5 mg/dL (8.6-10.3); Carbon Dioxide 23 mEq/L (23-29); Chloride 107 mEq/L (98-107); Glucose 138 mg/dL (70-105); Osmolality,Calculated 291 (280-300); Potassium 3.6 mEq/L (3.5-5.1); Sodium 139 mEq/L (136-145); eGFR For African Americans > 60 (> 60); eGFR For Non-African Americans > 60 (> 60)
[2017-08-15] MEDS: 0.9 % Sodium Chloride 1,000 ML IVC SCH (07:35)
[2017-08-15] MEDS: Insulin LISPRO 300 UNITS/3 ML VIAL SQ SCH ×4 (07:37→22:32)
--- NOTE | 2017-08-15 10:03 | Internal Med Progress Note ---
<Williams Donato - Last Filed: 08/15/17 13:22> Date of Encounter: 08/15/17 Time of Encounter: 10:01 - Assessment and plan (1) Sepsis Current Visit: Yes Status: Resolved Assessment and plan: Sepsis clinically resolved, continuing antibiotics and monitoring white count and blood culture, ID consulted Qualifiers: Sepsis type: Streptococcus group B Qualified Code(s): A40.1 - Sepsis due to streptococcus, group B (2) Encephalopathy Current Visit: Yes Status: Resolved Assessment and plan: Patient currently has no altered mental status, will continue to monitor (3) Hypertension Current Visit: Yes Status: Chronic Assessment and plan: Chronic and controlled with lisinopril and metoprolol Qualifiers: Hypertension type: essential hypertension Qualified Code(s): I10 - Essential (primary) hypertension (4) CAD (coronary artery disease) Current Visit: Yes Status: Chronic Assessment and plan: chronic and controlled on lisinopril, metoprolol, simvastatin Qualifiers: Coronary Disease-Associated Artery/Lesion type: [place] artery [place] vs. transplanted heart: [place] heart Associated angina: without angina Qualified Code(s): I25.10 - Atherosclerotic heart disease of [place] coronary artery without angina pectoris (5) DVT prophylaxis Current Visit: Yes Status: Acute Assessment and plan: Patient is recieving 40mg lovenox for DVT prophylaxis while in the hospital. (6) Premature atrial contractions Current Visit: Yes Status: Acute Assessment and plan: Irregularity heard on exam, EKG performed, premature atrial contractions found, not new from previous EKG, patient is asymptomatic, no intervention required - Time Spent With Patient Total time spent is greater than 50% in coordination of care (as documented) at patient's floor/unit and/or counseling patient: - Subjective Interval history: Shawn is doing well this morning, in no acute distress. He has been having diarrhea every 3-4 hours, a stool sample was sent by the nurse. He denies any abdominal pain or vomiting, chest pain or shortness of breath. HE does have a cough he attributes to reflux and post nasal drip. - Constitutional Vitals: Temp Pulse Resp BP Pulse Ox 98.1 F 63 16 143/77 97 08/15/17 07:10 08/15/17 07:10 08/15/17 07:10 08/15/17 07:10 08/15/17 07:10 General appearance: Present: A&O X 3, pleasant, no acute distress Exam: Alert and oriented x3, no acute distress heart in regular rate and rhythm, possibly with a few dropped beats, no murmur/ rub/hillary lungs clear to ausculation except for some mild rhonchi in the upper right lobe abdomen is soft and non-tender motor is 5/5 in bilateral upper extremities and 4/5 in bilateral lower extremities Internal Medicine: Result - Labs CBC & Chem 7: 08/15/17 04:27 08/15/17 04:27 Labs: Short CBC 08/15/17 Range/Units 04:27 WBC 7.2 (4.3-11.1) K/mcL Hgb 12.1 L (12.9-16.9) g/dL Hct 35.6 L (37.5-50.1) % Plt Count 210 (140-400) K/mcL Neutrophils # 5.3 (1.6-8.9) K/mcL BMP 08/15/17 04:27 Sodium 139 Potassium 3.6 Chloride 107 Carbon Dioxide 23 BUN 16 Creatinine 0.77 Glucose 138 H Calcium 8.5 L - ABG Interpretation ABG results: PT/INR, D-dimer PT 12.8 Seconds (9.4-12.1) H 08/12/17 18:20 Consult Discharge Plan - Plan Referrals: Keven Rice MD [Primary Care Provider] - (patient has to call for a hospital appt. per Dr. Rice Office....) <Jayson Malloy - Last Filed: 08/15/17 14:48> Date of Encounter: 08/15/17 - Assessment and plan (1) Hypertension Current Visit: Yes Status: Chronic Qualifiers: Hypertension type: essential hypertension Qualified Code(s): I10 - Essential (primary) hypertension (2) CAD (coronary artery disease) Current Visit: Yes Status: Chronic Qualifiers: Coronary Disease-Associated Artery/Lesion type: [place] artery [place] vs. transplanted heart: [place] heart Associated angina: without angina Qualified Code(s): I25.10 - Atherosclerotic heart disease of [place] coronary artery without angina pectoris (3) DVT prophylaxis Current Visit: Yes Status: Acute (4) Sepsis Current Visit: Yes Status: Resolved Qualifiers: Sepsis type: Streptococcus group B Qualified Code(s): A40.1 - Sepsis due to streptococcus, group B (5) Encephalopathy Current Visit: Yes Status: Resolved (6) Premature atrial contractions Current Visit: Yes Status: Acute - Time Spent With Patient Total time spent is greater than 50% in coordination of care (as documented) at patient's floor/unit and/or counseling patient: - Constitutional Vitals: Temp Pulse Resp BP Pulse Ox 98.1 F 65 16 126/68 96 08/15/17 11:59 08/15/17 11:59 08/15/17 11:59 08/15/17 11:59 08/15/17 11:59 Internal Medicine: Result - Labs CBC & Chem 7: 08/15/17 04:27 08/15/17 04:27 Labs: Short CBC 08/15/17 Range/Units 04:27 WBC 7.2 (4.3-11.1) K/mcL Hgb 12.1 L (12.9-16.9) g/dL Hct 35.6 L (37.5-50.1) % Plt Count 210 (140-400) K/mcL Neutrophils # 5.3 (1.6-8.9) K/mcL BMP 08/15/17 04:27 Sodium 139 Potassium 3.6 Chloride 107 Carbon Dioxide 23 BUN 16 Creatinine 0.77 Glucose 138 H Calcium 8.5 L - ABG Interpretation ABG results: PT/INR, D-dimer PT 12.8 Seconds (9.4-12.1) H 08/12/17 18:20 - Attending Attestation I examined this patient and my medical decision-making was reviewed with the Resident Physician. I agree with the documented findings, disposition and treatment plan as described except to the extent set forth below. Patient doing well today. He states that his diarrhea is slightly better, and notes there is more of a brown color to it which is improvement since yesterday. He denies fevers/chills, n/v. Physical exam unchanged since yesterday, CVS and resp exam normal. Skin does not show any acute changes, abrasion on scalp unchanged and not erythematous. No vegitations appreciated on TTE. VS reviewed, stable, afebrile. WBC count remains normal, it was originally 21k on admission. - Continue antibiotics - Repeat blood cultures are pending; currently no growth to date - ID consulted, recommendations appreciated.
[2017-08-15] MEDS: Lisinopril 20 MG TABLET PO SCH (10:33)
[2017-08-15] MEDS: Metoprolol XL (24 HR) Succ 50 MG TAB.ER.24H PO SCH (10:33)
--- NOTE | 2017-08-15 13:08 | Infectious Disease Consult ---
Date of Encounter: 08/15/17 Time of Encounter: 13:05 Assessment and Plan (1) Sepsis Status: Resolved Assessment and plan: Patient met 2/4 SIRS criteria: Leukocytosis of 21 and fever; Now resolved - Likely due to group B strep bacteremia; source unknown at this time - CXR, CT, UA were all unremarkable - No signs of cellulitis, infected wounds, or meningitis Qualifiers: Sepsis type: Streptococcus group B Qualified Code(s): A40.1 - Sepsis due to streptococcus, group B (2) Bacteremia due to group B Streptococcus Status: Acute Assessment and plan: Blood culture drawn on 08/12/17: + for group B strep; source unknown - Repeat blood culture was ordered on 08/13/17; currently pending - Streptococcus PCR was positive - Currently on penicillin 4 million units IV every 4 hours started on 08/13/17, day 3 - Plan will be to treat patient with penicillin for 14 day course (3) Diarrhea Status: Acute Assessment and plan: - Patient has had watery diarrhea 2 days duration - Unknown etiology; possible gastroenteritis vs. c.diff - Will order GI panel Qualifiers: Diarrhea type: unspecified type Qualified Code(s): R19.7 - Diarrhea, unspecified (4) Leukocytosis Status: Acute Assessment and plan: Resolved - Patient initially presented with a white count of 21.0; has since decreased to 7.2 - Patient remains afebrile - Lumbar puncture was performed; results pending - Patient was initially placed on ampicillin, acyclovir, and Rocephin for concern of meningitis - Continue to closely monitor the patients labs Qualifiers: Leukocytosis type: unspecified Qualified Code(s): D72.829 - Elevated white blood cell count, unspecified (5) Encephalopathy Status: Resolved Assessment and plan: Resolved - Patient initially presented with concerns of increasing confusion - Likely secondary to strep B bacteremia - Currently alert and oriented 3 (6) Hypertension Status: Chronic Assessment and plan: - Management per primary team Qualifiers: Hypertension type: essential hypertension Qualified Code(s): I10 - Essential (primary) hypertension Infectious Disease HPI - Data of Consult Consult date: 08/15/17 Requesting Physician: Manuela Ibarra Primary Care Provider: Keven Rice MD - Consult Narrative Reason for consult: Watery diarrhea x 2 days History of present illness: Patient is an 86-year-old male who presented to the emergency department on with altered mental status. We are consulted on 08/15 for acute onset watery diarrhea of 2 days duration. Patient has known PMH of HTN, HLD, DM, CAD who initially presented to the emergency department with altered mental status. Patient had felt fatigued since the previous day, which worsened to the point that he was unable to get out of bed. In the ER, family was at bedside; reported the patient was disoriented compared to his baseline. They stated that he had become confused ever since she woke up that morning. Patient was noted to have a productive cough, nausea, and decreased appetite. Denied having any recent trauma or falls. He denied fevers, chills, night sweats, chest pain, shortness of breath , vomiting, diarrhea, or dysuria. Patient was noted to have multiple healing lesions on his scalp from removal by the appliance installer, one of which had become infected a few weeks ago. Patient took a course of oral antibiotics. Upon arrival to the emergency department, patients vital signs were as follows : Temperature 100.8, pulse 88, respiratory rate 18, blood pressure 127/60, O2 sat 93. CXR demonstrated no acute cardiopulmonary disease. CT scan of the head demonstrated no acute intracranial abnormality. CT scan of the chest demonstrated dependent air disease in both lungs, likely atelectasis. No signs of pneumonia. EKG showed sinus rhythm with some non-specific ST changes. Laboratory analysis demonstrated an elevated white count of 21. Lactic acid, BMP, hepatic panel, and troponin were all unremarkable. Urinalysis demonstrated the presence of blood. Interventional radiology was consulted for lumbar puncture to rule out the presence of meningitis. Patient was prophylactically given IV acyclovir, vancomycin, and Zosyn. Blood cultures drawn 08/12/17 were positive for strep agalactiae 2. Streptococcus PCR was positive. Urine strep and Legionella antigen were negative. Influenza swab was negative. Repeat blood cultures were ordered on ; currently pending. After admission, patient was initially started on Rocephin, Zosyn. Zosyn discontinued 08/12. Rocephin was discontinued 08/13. Ampicillin was ordered on 08/13; has since been discontinued. Currently on 4 million units of penicillin. Patient seen and examined at bedside. Reports one episode of diarrhea 2 hours ago. Denies nausea, vomiting, fever, or chills. Denies any blood in his stool. Denies abdominal pain. Denies history of C Diff. Patient is no longer confused; currently A&OX3. Denies alcohol or tobacco use. CC: Manuela Ibarra Past Med Surg Social Fam HX - Past Medical History Medical history: coronary artery disease, diabetes, hyperlipidemia, hypertension Psychiatric history: no psych history - Past Surgical History Surgical History: angioplasty/stent - Social History Smoking Status: Former smoker Alcohol use: rarely Drug use: none - Family History Son History Unknown: Yes Hx Family Cancer: Yes (Prostate) Infectious Disease-CN:Meds Glimepiride [Amaryl] 1 mg PO BID 08/12/17 [History] Lisinopril [Zestril] 40 mg PO DAILY 08/12/17 [History] Metformin HCl [Glucophage] 1,000 mg PO BIDWM 08/12/17 [History] Metoprolol Succinate [Toprol Xl] 50 mg PO DAILY 08/12/17 [History] Sildenafil Citrate [Revatio] 20 - 100 mg PO DAILY PRN 08/12/17 [History] Simvastatin [Zocor] 20 mg PO HS 08/12/17 [History] Triamterene/Hydrochlorothiazid [Dyazide 37.5-25 Capsule] 1 cap PO DAILY [History] 3 Allergy/AdvReac Type Severity Reaction Status Date / Time No Known Allergies Allergy Verified 08/12/17 17:38 - Constitutional Constitutional: Absent: lethargy, malaise - Cardiovascular Cardiovascular: Absent: chest pain - Gastrointestinal Gastrointestinal: Present: change in bowel habits, change in stool character, loose stools. Absent: abdominal pain, bloating, melena, nausea - Psychiatric Psychiatric: Absent: auditory hallucinations, behavioral changes, visual hallucinations Exam - Constitutional Vitals: Temp Pulse Resp BP Pulse Ox 98.1 F 65 16 126/68 96 08/15/17 11:59 08/15/17 11:59 08/15/17 11:59 08/15/17 11:59 08/15/17 11:59 General appearance: no acute distress - Head Head exam: Present: atraumatic, normocephalic - Eye Eye exam: Present: EOMI, PERRL, sclera anicteric Additional comments: No Conjunctival hemorrhage. - ENT ENT exam: Present: mucous membranes dry - Neck Neck exam: Present: full ROM, normal inspection - Respiratory Respiratory exam: Present: CTAB. Absent: rales, respiratory distress - Cardiovascular Cardiovascular exam: Present: RRR, +S1, +S2. Absent: bradycardia, systolic murmur - GI/Abdominal GI/Abdominal exam: Present: soft, tenderness. Absent: diminished bowel sounds, normal bowel sounds Additional comments: Patient's abdomen is actually tender right lower quadrant and left lower quadrant was grimacing and guarding - Extremities Exam Extremities exam: Present: full ROM. Absent: pedal edema - Back Exam Back exam: Present: normal inspection. Absent: CVA tenderness (L), CVA tenderness (R) - Neurological Exam Neurological exam: Present: alert, oriented X3. Absent: speech deficit - Psychiatric Psychiatric exam: Present: normal affect, normal mood. Absent: agitated Additional comments: Eager to go home - Skin Skin exam: Present: normal color. Absent: rash Additional comments: No endocarditis stigmata Infectious Disease CN: Results - Labs CBC & Chem 7: 08/15/17 04:27 08/15/17 04:27 Consult Discharge Plan - Plan Referrals: Keven Rice MD [Primary Care Provider] - (patient has to call for a hospital appt. per Dr. Rice Office....) - Attending Attestation I examined this patient and my medical decision-making was reviewed with the Resident Physician. I agree with the documented findings, disposition and treatment plan as described except to the extent set forth below. This is an addendum to original note dictated by resident physician. Please refer to residents note for full detail. Patient is an 86-year-old gentleman admitted to [facility] on 08/12 for altered mental status, we are consulted on 08/15 for sepsis and acute onset watery diarrhea 2 days. Patient is a 6-year-old gentleman with past medical history mentioned below including diabetes mellitus type 2, coronary artery disease, hypertension and hyperlipidemia presented to [facility] with altered mental status. Most of the information was taken from medical records. Patient apparently other than altered mental status had productive cough, nausea and decreased appetite. Patient apparently had no other symptoms at home no fevers no chills. Since admission, patient has been febrile with a MAXIMUM TEMPERATURE of 100.8 Fahrenheit. Patient had no tachycardia and respiratory rate within normal limit. Presenting WBC was 21,000 with 92% neutrophils no bands. Rest of the labs reveal normal kidney function and normal chemistry. A urinalysis was not stained and showed no pyuria no signs of infection. Blood cultures were obtained on 08/12 and 2 out of 2 sets grew group B streptococcus. Patient also had a CT scan of the chest which suggests atelectasis but no pneumonia. CT of the head was also obtained and showed no acute intracranial abnormalities. Patient was initially started on ampicillin, Zovirax vancomycin and Rocephin. Then all antibiotics were stopped on 08/13/17 and patient was started on penicillin G. We were asked to evaluate the patient and make further recommendations. A/P: Sepsis secondary to GBS Abdominal pain GBS bacteremia 2/2 sets; source not clear; intra abdominal? Urinary? DM2 HTN Dyslipidemia Encephalitis; resolved likely secondary to metabolic encephalitis Recommendations: Consider CT abdomen/pelvis with oral contrast Continue PCN G at 18 million units daily Treatment duration likely 2 weeks Might consider switching to oral option if patient improves clinically Monitor labs and for drug toxicity.
[2017-08-15 19:33] LABS: Adenovirus F 40/41 PCR Not detected (Not detect); Astrovirus PCR Not detected (Not detect); C.difficile Toxin A/B by PCR Not detected (Not detect); Campylobacter by PCR Not detected (Not detect); Cryptosporidium by PCR Not detected (Not detect); Cyclospora cayetanensis PCR Not detected (Not detect); E. coli O157 by PCR Not detected (Not detect); Entamoeba histolytica PCR Not detected (Not detect); Enteroaggregative E.coli(EAEC) Not detected (Not detect); Enteropathogenic E.coli(EPEC) Not detected (Not detect); Enterotoxigenic E.coli (ETEC) Not detected (Not detect); Giardia lamblia PCR Not detected (Not detect); Norovirus GI/GII PCR Not detected (Not detect); Plesiomonas shigelloides PCR Not detected (Not detect); Rotavirus A PCR Not detected (Not detect); Salmonella PCR Not detected (Not detect); Sapovirus PCR Not detected (Not detect); Shig/EnteroinvasiveE coli EIEC Not detected (Not detect); Shigalike tox-prod E coli STEC Not detected (Not detect); Vibrio PCR Not detected (Not detect); Vibrio cholerae PCR Not detected (Not detect); Yersinia enterocolitica PCR Not detected (Not detect)
[2017-08-16] MEDS: Penicillin G Potassium 4,000,000 UNIT in 0.9 % Sodium Chloride 100 ML IVPB SCH ×6 (00:28→20:36)
[2017-08-16] MEDS: *HR* Enoxaparin 40 MG/0.4 ML SYRINGE SQ SCH (05:14)
[2017-08-16 05:40] LABS: Basophils % 0.4 %; Eosinophils # 0.2 K/mcL (0.0-0.6); Eosinophils % 3.5 %; Immature Granulocytes % 0.7 % (0-4); Lymphocytes # 1.2 K/mcL (0.6-4.6); Lymphocytes % 17.5 %; Mean Corpuscular HGB Conc 32.4 g/dL (31.6-35.5); Mean Corpuscular Hemoglobin 28.5 pg (28.0-33.3); Mean Corpuscular Volume 88.1 fL (83.0-100.0); Mean Platelet Volume 9.8 fL (9.4-12.4); Monocytes # 0.6 K/mcL (0.0-1.3); Monocytes % 8.8 %; Neutrophils # 4.8 K/mcL (1.6-8.9); Platelet Count 234 K/mcL (140-400); Red Blood Count 3.86 M/mcL (4.19-5.50); Red Cell Distribution Width 13.7 % (11.5-14.5); Segmented Neutrophils % 69.1 %
[2017-08-16 05:56] LABS: BUN/Creatinine Ratio 14 (6-26); Blood Urea Nitrogen 12 mg/dL (8-23); Calcium 8.7 mg/dL (8.6-10.3); Carbon Dioxide 28 mEq/L (23-29); Chloride 104 mEq/L (98-107); Glucose 138 mg/dL (70-105); Osmolality,Calculated 288 (280-300); Potassium 4.1 mEq/L (3.5-5.1); Sodium 138 mEq/L (136-145); eGFR For African Americans > 60 (> 60); eGFR For Non-African Americans > 60 (> 60)
[2017-08-16] MEDS: Insulin LISPRO 300 UNITS/3 ML VIAL SQ SCH ×4 (07:58→22:44)
[2017-08-16] MEDS: Metoprolol XL (24 HR) Succ 50 MG TAB.ER.24H PO SCH (07:58)
[2017-08-16] MEDS: Lisinopril 20 MG TABLET PO SCH (07:58)
--- NOTE | 2017-08-16 10:08 | Infectious Disease Progress No ---
Date of Encounter: 08/16/17 Time of Encounter: 10:08 - Assessment and Plan (1) Sepsis Current Visit: Yes Status: Resolved Patient met 2/4 SIRS criteria: Leukocytosis of 21 and fever; Now resolved - Likely due to group B strep bacteremia; source unknown at this time - CXR, CT chest, UA were all unremarkable - CT abdomen from 08/15: Nonspecific diarrheal disease. Borderline retroperitoneal lymphadenopathy and ill-defined inflammatory changes in the left lower quadrant. - No signs of cellulitis, infected wounds, or meningitis Qualifiers: Sepsis type: Streptococcus group B Qualified Code(s): A40.1 - Sepsis due to streptococcus, group B (2) Bacteremia due to group B Streptococcus Current Visit: Yes Status: Ruled-out Blood culture drawn on 08/12/17: + for group B strep; source unknown - Repeat blood culture was ordered on 08/13/17; currently pending - Streptococcus PCR was positive - Currently on penicillin 4 million units IV every 4 hours started on 08/13/17, day 4 - Plan will be to treat patient with penicillin for 14 day course (3) Diarrhea Current Visit: Yes Status: Acute - Patient has had watery diarrhea 2 days duration - Unknown etiology; possible gastroenteritis vs. c.diff - GI panel was negative - CT scan from 08/15: Nonspecific diarrheal disease. Borderline retroperitoneal lymphadenopathy and ill-defined inflammatory changes in the LLQ. Qualifiers: Diarrhea type: unspecified type Qualified Code(s): R19.7 - Diarrhea, unspecified (4) Leukocytosis Current Visit: Yes Status: Acute Resolved - Patient initially presented with a white count of 21.0; has since decreased to 6.9; currently stable - Patient remains afebrile - Lumbar puncture was performed; results pending - Patient was initially placed on ampicillin, acyclovir, and Rocephin for concern of meningitis - Continue to closely monitor the patients labs Qualifiers: Leukocytosis type: unspecified Qualified Code(s): D72.829 - Elevated white blood cell count, unspecified (5) Encephalopathy Current Visit: Yes Status: Resolved Resolved - Patient initially presented with concerns of increasing confusion - Likely secondary to strep B bacteremia - Currently alert and oriented 3 (6) Hypertension Current Visit: Yes Status: Chronic - Management per primary team Qualifiers: Hypertension type: essential hypertension Qualified Code(s): I10 - Essential (primary) hypertension - Subjective Interval history: Patient was seen and examined at bedside; reports feeling well today. Reports having 2 loose bowel movements earlier in the day. Denies having fever, chills , n/v, confusion. No complaints at this time. Infect Dis PN-Objective Data - Labs CBC & Chem 7: 08/19/17 05:20 08/19/17 05:20 Labs: Laboratory Results - last 24 hr 08/14/17 08/14/17 08/15/17 11:56 20:32 07:05 WBC RBC Hgb Hct MCV MCH MCHC RDW Plt Count MPV Immature Gran % Seg Neutrophils % Lymphocytes % Monocytes % Eosinophils % Basophils % Neutrophils # Lymphocytes # Monocytes # Eosinophils # Basophils # Sodium Potassium Chloride Carbon Dioxide BUN Creatinine Est GFR ( Amer) Est GFR (Non-Af Amer) BUN/Creatinine Ratio Glucose POC Glucose 240 H 218 H Calculated Osmolality Calcium Stl C. cayetanensis PCR Not detected Stool Rotavirus A PCR Not detected Stl Adenov F 40/41 PCR Not detected Stool Astrovirus (PCR) Not detected Stool Campylobacter PCR Not detected Stl C. diff Tox A/B PCR Not detected Stool Cryptosporidium PCR Not detected Stl Sh Tox Pr E STEC PCR Not detected Stool E coli O157 PCR Not detected Stl Enterotoxigenic E PCR Not detected Stool EPEC (PCR) Not detected Stool EAEC (PCR) Not detected Stl E. histolytica PCR Not detected Stool Giardia Lamblia PCR Not detected Stool Salmonella PCR Not detected Stool Sapovirus (PCR) Not detected Stl P. shigelloides PCR Not detected Stl Shigella/EIEC PCR Not detected St Y.enterocolitica PCR Not detected Stool Vibrio (PCR) Not detected Stl Vibrio cholerae PCR Not detected Stl Norovirus GI/GII PCR Not detected Stl GI Panel (PCR) Com See below 08/15/17 08/15/17 08/15/17 07:10 11:59 20:44 WBC RBC Hgb Hct MCV MCH MCHC RDW Plt Count MPV Immature Gran % Seg Neutrophils % Lymphocytes % Monocytes % Eosinophils % Basophils % Neutrophils # Lymphocytes # Monocytes # Eosinophils # Basophils # Sodium Potassium Chloride Carbon Dioxide BUN Creatinine Est GFR ( Amer) Est GFR (Non-Af Amer) BUN/Creatinine Ratio Glucose POC Glucose 118 H 213 H 201 H Calculated Osmolality Calcium Stl C. cayetanensis PCR Stool Rotavirus A PCR Stl Adenov F 40/41 PCR Stool Astrovirus (PCR) Stool Campylobacter PCR Stl C. diff Tox A/B PCR Stool Cryptosporidium PCR Stl Sh Tox Pr E STEC PCR Stool E coli O157 PCR Stl Enterotoxigenic E PCR Stool EPEC (PCR) Stool EAEC (PCR) Stl E. histolytica PCR Stool Giardia Lamblia PCR Stool Salmonella PCR Stool Sapovirus (PCR) Stl P. shigelloides PCR Stl Shigella/EIEC PCR St Y.enterocolitica PCR Stool Vibrio (PCR) Stl Vibrio cholerae PCR Stl Norovirus GI/GII PCR Stl GI Panel (PCR) Com 08/16/17 08/16/17 08/16/17 04:53 04:53 07:31 WBC 6.9 RBC 3.86 L Hgb 11.0 L Hct 34.0 L MCV 88.1 MCH 28.5 MCHC 32.4 RDW 13.7 Plt Count 234 MPV 9.8 Immature Gran % 0.7 Seg Neutrophils % 69.1 Lymphocytes % 17.5 Monocytes % 8.8 Eosinophils % 3.5 Basophils % 0.4 Neutrophils # 4.8 Lymphocytes # 1.2 Monocytes # 0.6 Eosinophils # 0.2 Basophils # 0.0 Sodium 138 Potassium 4.1 Chloride 104 Carbon Dioxide 28 BUN 12 Creatinine 0.83 Est GFR ( Amer) > 60 Est GFR (Non-Af Amer) > 60 BUN/Creatinine Ratio 14 Glucose 138 H POC Glucose 141 H Calculated Osmolality 288 Calcium 8.7 Stl C. cayetanensis PCR Stool Rotavirus A PCR Stl Adenov F PCR Stool Astrovirus (PCR) Stool Campylobacter PCR Stl C. diff Tox A/B PCR Stool Cryptosporidium PCR Stl Sh Tox Pr E STEC PCR Stool E coli O157 PCR Stl Enterotoxigenic E PCR Stool EPEC (PCR) Stool EAEC (PCR) Stl E. histolytica PCR Stool Giardia Lamblia PCR Stool Salmonella PCR Stool Sapovirus (PCR) Stl P. shigelloides PCR Stl Shigella/EIEC PCR St Y.enterocolitica PCR Stool Vibrio (PCR) Stl Vibrio cholerae PCR Stl Norovirus GI/GII PCR Stl GI Panel (PCR) Com Cultures: Serology 08/15/17 Range/Units 07:05 Stl C. cayetanensis PCR Not detected (Not detect) Stool Rotavirus A PCR Not detected (Not detect) Stl Adenov F 40/41 PCR Not detected (Not detect) Stool Astrovirus (PCR) Not detected (Not detect) Stool Campylobacter PCR Not detected (Not detect) Stl C. diff Tox A/B PCR Not detected (Not detect) Stool Cryptosporidium PCR Not detected (Not detect) Stl Sh Tox Pr E STEC PCR Not detected (Not detect) Stool E coli O157 PCR Not detected (Not detect) Stl Enterotoxigenic E PCR Not detected (Not detect) Stool EPEC (PCR) Not detected (Not detect) Stool EAEC (PCR) Not detected (Not detect) Stl E. histolytica PCR Not detected (Not detect) Stool Giardia Lamblia PCR Not detected (Not detect) Stool Salmonella PCR Not detected (Not detect) Stool Sapovirus (PCR) Not detected (Not detect) Stl P. shigelloides PCR Not detected (Not detect) Stl Shigella/EIEC PCR Not detected (Not detect) St Y.enterocolitica PCR Not detected (Not detect) Stool Vibrio (PCR) Not detected (Not detect) Stl Vibrio cholerae PCR Not detected (Not detect) Stl Norovirus GI/GII PCR Not detected (Not detect) Stl GI Panel (PCR) Com See below - Impressions Impressions Abdomen/Pelvis CT 08/15/17 23:00 IMPRESSION: Nonspecific diarrheal disease. Borderline retroperitoneal lymphadenopathy and ill-defined inflammatory changes in the left lower quadrant. D/ / Guilherme Fernando MD / Guilherme Fernando MD Interpreting Provider: Guilherme Fernando MD Exam - Constitutional Vitals: Temp Pulse Resp BP Pulse Ox 98.2 F 70 16 153/90 96 08/16/17 07:28 08/16/17 07:28 08/16/17 07:28 08/16/17 07:28 08/16/17 07:28 General appearance: no acute distress - Respiratory Respiratory exam: Present: CTAB. Absent: rales, respiratory distress, rhonchi, tachypnea - Cardiovascular Cardiovascular exam: Present: RRR, +S1, +S2. Absent: bradycardia, tachycardia - GI/Abdominal GI/Abdominal exam: Present: soft. Absent: diminished bowel sounds, rebound, rigid, tenderness - Psychiatric Psychiatric exam: Present: normal affect, normal mood - Skin Skin exam: Present: dry, intact, normal color - VTE Documentation of Mechanical Device: Intermittent pneumatic compression device Consult Discharge Plan - Plan Referrals: Keven Rice MD [Primary Care Provider] - (patient has to call for a hospital appt. per Dr. Rice Office....) - Attending Attestation I examined this patient and my medical decision-making was reviewed with the Resident Physician. I agree with the documented findings, disposition and treatment plan as described except to the extent set forth below.
--- NOTE | 2017-08-16 11:18 | Electrocardiograph Report ---
[place] [id number] Test Date: 2017-08-15 Pat Name: Shawn Astorga Department: 112 Room: 2A Gender: M [employer]: TRINA : [id number] Requested By: [id number] Order Number: [id number] Reading MD: Hiren River Measurements Intervals [place] Rate: 58 P: 39 DE: 158 QRS: 10 QRSD: 82 T: 31 QT: 402 QTc: 398 Interpretive Statements SINUS BRADYCARDIA WITH OCCASIONAL SUPRAVENTRICULAR PREMATURE COMPLEXES Electronically Signed On 08-16-2017 11:16:38 EDT by Hiren River
[2017-08-16] MEDS ORDERED: Loperamide 1 MG/5 ML UDC PO PRN (13:11)
--- NOTE | 2017-08-16 16:01 | Internal Med Progress Note ---
<Williams Donato - Last Filed: 08/16/17 15:59> Date of Encounter: 08/16/17 Time of Encounter: 15:59 - Assessment and plan (1) Sepsis Current Visit: Yes Status: Resolved Assessment and plan: Patient has clinically resolved from a sepsis standpoint. He is still on PCN IV , planned to finish a 2 week course. His cultures have not grown anything as of yet. His white count is still down. We will continue to monitor. Qualifiers: Sepsis type: Streptococcus group B Qualified Code(s): A40.1 - Sepsis due to streptococcus, group B (2) Encephalopathy Current Visit: Yes Status: Resolved Assessment and plan: Patient has clinically resolved, a&ox3. We will continue to monitor. (3) Hypertension Current Visit: Yes Status: Chronic Assessment and plan: Chronic and controlled with lisinopril and metoprolol Qualifiers: Hypertension type: essential hypertension Qualified Code(s): I10 - Essential (primary) hypertension (4) CAD (coronary artery disease) Current Visit: Yes Status: Chronic Assessment and plan: chronic and controlled on lisinopril, metoprolol, simvastatin Qualifiers: Coronary Disease-Associated Artery/Lesion type: three affiliated artery [place] vs. transplanted heart: three affiliated heart Associated angina: without angina Qualified Code(s): I25.10 - Atherosclerotic heart disease of three affiliated coronary artery without angina pectoris (5) DVT prophylaxis Current Visit: Yes Status: Acute Assessment and plan: Patient is recieving 40mg lovenox for DVT prophylaxis while in the hospital. (6) Premature atrial contractions Current Visit: Yes Status: Acute Assessment and plan: Irregularity heard on exam, EKG performed, premature atrial contractions found, not new from previous EKG, patient is asymptomatic, no intervention required (7) Diarrhea Current Visit: Yes Status: Acute Assessment and plan: Diarrhea since starting PCN, episodes every 3-4 hours. GI panel was negative. I have discussed this with ID and agree this is likely non infectious. I started loperamide for symptomatic relief. Will continue to monitor. Qualifiers: Qualified Code(s): R19.7 - Diarrhea, unspecified - Time Spent With Patient Total time spent is greater than 50% in coordination of care (as documented) at patient's floor/unit and/or counseling patient: - Subjective Interval history: Patient is clinically improved from a sepsis standpoint. He is still having diarrhea every three to four hours. He denies chest pain, shortnes of breath, fever or chills. He was informed of the need to stay longer in the hospital because of his need for IV antibiotics. - Constitutional Vitals: Temp Pulse Resp BP Pulse Ox 97.9 F 75 16 117/74 97 08/16/17 11:10 08/16/17 10:46 08/16/17 10:46 08/16/17 10:46 08/16/17 10:46 General appearance: Present: A&O X 3, pleasant, no acute distress Exam: No acute distress Alert and oriented x3 Mucous membranes moist Skin warm and dry with good turgor heart regular rate with some PACs Lungs clear to auscultation Motor 5/5 in all 4 extremities Internal Medicine: Result - Labs CBC & Chem 7: 08/16/17 04:53 08/16/17 04:53 Labs: Short CBC 08/16/17 Range/Units 04:53 WBC 6.9 (4.3-11.1) K/mcL Hgb 11.0 L (12.9-16.9) g/dL Hct 34.0 L (37.5-50.1) % Plt Count 234 (140-400) K/mcL Neutrophils # 4.8 (1.6-8.9) K/mcL BMP 08/16/17 04:53 Sodium 138 Potassium 4.1 Chloride 104 Carbon Dioxide 28 BUN 12 Creatinine 0.83 Glucose 138 H Calcium 8.7 - ABG Interpretation ABG results: PT/INR, D-dimer PT 12.8 Seconds (9.4-12.1) H 08/12/17 18:20 - Impressions Impressions Abdomen/Pelvis CT 08/15/17 23:00 IMPRESSION: Nonspecific diarrheal disease. Borderline retroperitoneal lymphadenopathy and ill-defined inflammatory changes in the left lower quadrant. D/ / Guilherme Fernando MD / Guilherme Fernando MD Interpreting Provider: Guilherme Fernando MD - VTE Documentation of Mechanical Device: Intermittent pneumatic compression device Consult Discharge Plan - Plan Referrals: Keven Rice MD [Primary Care Provider] - (patient has to call for a hospital appt. per Dr. Rice Office....) <PanchodidiJayson - Last Filed: 08/16/17 18:30> Date of Encounter: 08/16/17 - Assessment and plan (1) Hypertension Current Visit: Yes Status: Chronic Qualifiers: Hypertension type: essential hypertension Qualified Code(s): I10 - Essential (primary) hypertension (2) CAD (coronary artery disease) Current Visit: Yes Status: Chronic Qualifiers: Coronary Disease-Associated Artery/Lesion type: three affiliated artery [place] vs. transplanted heart: three affiliated heart Associated angina: without angina Qualified Code(s): I25.10 - Atherosclerotic heart disease of three affiliated coronary artery without angina pectoris (3) DVT prophylaxis Current Visit: Yes Status: Acute (4) Sepsis Current Visit: Yes Status: Resolved Qualifiers: Sepsis type: Streptococcus group B Qualified Code(s): A40.1 - Sepsis due to streptococcus, group B (5) Encephalopathy Current Visit: Yes Status: Resolved (6) Premature atrial contractions Current Visit: Yes Status: Acute (7) Diarrhea Current Visit: Yes Status: Acute Qualifiers: Qualified Code(s): R19.7 - Diarrhea, unspecified - Time Spent With Patient Total time spent is greater than 50% in coordination of care (as documented) at patient's floor/unit and/or counseling patient: - Constitutional Vitals: Temp Pulse Resp BP Pulse Ox 97.6 F 64 16 150/82 97 08/16/17 16:26 08/16/17 16:26 08/16/17 16:26 08/16/17 16:26 08/16/17 16:26 Internal Medicine: Result - Labs CBC & Chem 7: 08/16/17 04:53 08/16/17 04:53 Labs: Short CBC 08/16/17 Range/Units 04:53 WBC 6.9 (4.3-11.1) K/mcL Hgb 11.0 L (12.9-16.9) g/dL Hct 34.0 L (37.5-50.1) % Plt Count 234 (140-400) K/mcL Neutrophils # 4.8 (1.6-8.9) K/mcL BMP 08/16/17 04:53 Sodium 138 Potassium 4.1 Chloride 104 Carbon Dioxide 28 BUN 12 Creatinine 0.83 Glucose 138 H Calcium 8.7 - ABG Interpretation ABG results: PT/INR, D-dimer PT 12.8 Seconds (9.4-12.1) H 08/12/17 18:20 - Impressions Impressions Abdomen/Pelvis CT 08/15/17 23:00 IMPRESSION: Nonspecific diarrheal disease. Borderline retroperitoneal lymphadenopathy and ill-defined inflammatory changes in the left lower quadrant. D/ / Guilherme Fernando MD / Guilherme Fernando MD Interpreting Provider: Guilherme Fernando MD - Attending Attestation I examined this patient and my medical decision-making was reviewed with the Resident Physician. I agree with the documented findings, disposition and treatment plan as described except to the extent set forth below.
[2017-08-17] MEDS: Penicillin G Potassium 4,000,000 UNIT in 0.9 % Sodium Chloride 100 ML IVPB SCH ×6 (00:21→20:31)
[2017-08-17] MEDS: *HR* Enoxaparin 40 MG/0.4 ML SYRINGE SQ SCH (05:04)
[2017-08-17 06:43] LABS: Basophils % 0.2 %; Eosinophils # 0.3 K/mcL (0.0-0.6); Eosinophils % 3.2 %; Hematocrit 35.3 % (37.5-50.1); Hemoglobin 11.8 g/dL (12.9-16.9); Immature Granulocytes % 0.9 % (0-4); Lymphocytes # 1.3 K/mcL (0.6-4.6); Lymphocytes % 16.5 %; Mean Corpuscular HGB Conc 33.4 g/dL (31.6-35.5); Mean Corpuscular Hemoglobin 29.2 pg (28.0-33.3); Mean Corpuscular Volume 87.4 fL (83.0-100.0); Mean Platelet Volume 9.6 fL (9.4-12.4); Monocytes # 0.7 K/mcL (0.0-1.3); Monocytes % 8.6 %; Neutrophils # 5.7 K/mcL (1.6-8.9); Platelet Count 228 K/mcL (140-400); Red Blood Count 4.04 M/mcL (4.19-5.50); Red Cell Distribution Width 13.6 % (11.5-14.5); Segmented Neutrophils % 70.6 %
[2017-08-17 07:06] LABS: BUN/Creatinine Ratio 14 (6-26); Blood Urea Nitrogen 12 mg/dL (8-23); Calcium 8.6 mg/dL (8.6-10.3); Carbon Dioxide 26 mEq/L (23-29); Chloride 106 mEq/L (98-107); Glucose 137 mg/dL (70-105); Osmolality,Calculated 288 (280-300); Sodium 138 mEq/L (136-145); eGFR For African Americans > 60 (> 60); eGFR For Non-African Americans > 60 (> 60)
[2017-08-17] MEDS: Metoprolol XL (24 HR) Succ 50 MG TAB.ER.24H PO SCH (09:01)
[2017-08-17] MEDS: Lisinopril 20 MG TABLET PO SCH (09:01)
[2017-08-17] MEDS: Insulin LISPRO 300 UNITS/3 ML VIAL SQ SCH ×4 (09:02→20:32)
--- NOTE | 2017-08-17 09:50 | Internal Med Progress Note ---
Date of Encounter: 08/17/17 Time of Encounter: 09:48 - Assessment and plan (1) Encephalopathy Current Visit: Yes Status: Resolved Assessment and plan: Patient has clinically resolved, a&ox3. Likely was related to sepsis (2) Sepsis Current Visit: Yes Status: Resolved Assessment and plan: Patient has clinically resolved from a sepsis standpoint. He is still on PCN IV, planned to finish a 2 week course. Cultures on 08/12/17 grew 2 of 2 sets GBS. Currently on PCN, improved Yesterday did have episode of fever, no such episode since then Repeat cultures on 08/13 has no growth to date. Sepsis currently resolved but needs close monitoring and IV antibiotics ID following Plan to set up for IV antibiotics upon discharge. Qualifiers: Sepsis type: Streptococcus group B Qualified Code(s): A40.1 - Sepsis due to streptococcus, group B (3) Hypertension Current Visit: Yes Status: Chronic Assessment and plan: Chronic and controlled with lisinopril and metoprolol Qualifiers: Hypertension type: essential hypertension Qualified Code(s): I10 - Essential (primary) hypertension (4) CAD (coronary artery disease) Current Visit: Yes Status: Chronic Assessment and plan: chronic and controlled on lisinopril, metoprolol, simvastatin Qualifiers: Coronary Disease-Associated Artery/Lesion type: [place] artery [place] vs. transplanted heart: [place] heart Associated angina: without angina Qualified Code(s): I25.10 - Atherosclerotic heart disease of [place] coronary artery without angina pectoris (5) Premature atrial contractions Current Visit: Yes Status: Acute Assessment and plan: Irregularity heard on exam, EKG performed, premature atrial contractions found, not new from previous EKG, patient is asymptomatic, no intervention required (6) Diarrhea Current Visit: Yes Status: Acute Assessment and plan: Diarrhea since starting PCN, initially had BM every 4 hours. GI panel was negative. Discussed with ID and agree this is likely non infectious. Continue loperamide for symptomatic relief. Patient states there is improvement. Qualifiers: Qualified Code(s): R19.7 - Diarrhea, unspecified (7) DVT prophylaxis Current Visit: Yes Status: Acute Assessment and plan: Lovenox 40 mg sq daily - Time Spent With Patient Total time spent is greater than 50% in coordination of care (as documented) at patient's floor/unit and/or counseling patient: - Subjective Interval history: No acute events. Patient complains of indigestion. Denies fevers/chills, abdominal pain. States diarrhea is slowly improving. - Constitutional Vitals: Temp Pulse Resp BP Pulse Ox 98.8 F 66 19 127/65 97 08/17/17 07:47 08/17/17 07:47 08/17/17 07:47 08/17/17 07:47 08/17/17 07:47 General appearance: Present: A&O X 3, pleasant, no acute distress Exam: Gen: NAD pleasant, HEENT: No nuchal rigidity. CVS: RRR, lungs: CTAB. Abd: soft, NT/ND Ext: no edema, Neuro: no focal deficits, Skin: warm, healing lesions on scalp Internal Medicine: Result - Labs CBC & Chem 7: 08/17/17 06:33 08/17/17 06:33 Labs: Short CBC 08/17/17 Range/Units 06:33 WBC 8.1 (4.3-11.1) K/mcL Hgb 11.8 L (12.9-16.9) g/dL Hct 35.3 L (37.5-50.1) % Plt Count 228 (140-400) K/mcL Neutrophils # 5.7 (1.6-8.9) K/mcL BMP 08/17/17 06:33 Sodium 138 Potassium 4.0 Chloride 106 Carbon Dioxide 26 BUN 12 Creatinine 0.85 Glucose 137 H Calcium 8.6 - ABG Interpretation ABG results: PT/INR, D-dimer PT 12.8 Seconds (9.4-12.1) H 08/12/17 18:20 - VTE Documentation of Mechanical Device: Intermittent pneumatic compression device Consult Discharge Plan - Plan Referrals: Keven Rice MD [Primary Care Provider] - (patient has to call for a hospital appt. per Dr. Rice Office....)
[2017-08-18] MEDS: Penicillin G Potassium 4,000,000 UNIT in 0.9 % Sodium Chloride 100 ML IVPB SCH ×6 (00:36→20:56)
[2017-08-18] MEDS: *HR* Enoxaparin 40 MG/0.4 ML SYRINGE SQ SCH (05:10)
[2017-08-18 07:02] LABS: Basophils % 0.5 %; Eosinophils # 0.3 K/mcL (0.0-0.6); Eosinophils % 3.5 %; Hematocrit 34.7 % (37.5-50.1); Hemoglobin 11.4 g/dL (12.9-16.9); Immature Granulocytes % 1.5 % (0-4); Lymphocytes # 1.4 K/mcL (0.6-4.6); Lymphocytes % 16.5 %; Mean Corpuscular HGB Conc 32.9 g/dL (31.6-35.5); Mean Corpuscular Hemoglobin 28.9 pg (28.0-33.3); Mean Corpuscular Volume 87.8 fL (83.0-100.0); Monocytes # 0.6 K/mcL (0.0-1.3); Monocytes % 7.1 %; Platelet Count 240 K/mcL (140-400); Red Blood Count 3.95 M/mcL (4.19-5.50); Red Cell Distribution Width 13.8 % (11.5-14.5); Segmented Neutrophils % 70.9 %
[2017-08-18 07:20] LABS: BUN/Creatinine Ratio 14 (6-26); Blood Urea Nitrogen 12 mg/dL (8-23); Calcium 8.6 mg/dL (8.6-10.3); Carbon Dioxide 29 mEq/L (23-29); Chloride 105 mEq/L (98-107); Glucose 142 mg/dL (70-105); Osmolality,Calculated 286 (280-300); Potassium 3.9 mEq/L (3.5-5.1); Sodium 137 mEq/L (136-145); eGFR For African Americans > 60 (> 60); eGFR For Non-African Americans > 60 (> 60)
[2017-08-18] MEDS: Insulin LISPRO 300 UNITS/3 ML VIAL SQ SCH ×4 (08:31→21:03)
[2017-08-18] MEDS: Metoprolol XL (24 HR) Succ 50 MG TAB.ER.24H PO SCH (08:31)
[2017-08-18] MEDS: Lisinopril 20 MG TABLET PO SCH (08:46)
--- NOTE | 2017-08-18 14:10 | Internal Med Progress Note ---
<Williams Donato - Last Filed: 08/18/17 14:07> Date of Encounter: 08/18/17 Time of Encounter: 14:10 - Assessment and plan (1) Sepsis Current Visit: Yes Status: Resolved Assessment and plan: Patient clinically resolved, no white count or fever, blood cultures still without growth from 08/13 Receiving IV PCN Plan to discharge with IV PCN Qualifiers: Sepsis type: Streptococcus group B Qualified Code(s): A40.1 - Sepsis due to streptococcus, group B (2) Encephalopathy Current Visit: Yes Status: Resolved Assessment and plan: Encephalopathy resolved Patient currently a&o3 (3) Premature atrial contractions Current Visit: Yes Status: Acute Assessment and plan: Premature atrial contractions identified on EKG Patient is asymptomatic Patient advised to monitor for symptoms No other treatment anticipated (4) Hypertension Current Visit: Yes Status: Chronic Assessment and plan: Chronic and controlled with lisinopril and metoprolol Qualifiers: Hypertension type: essential hypertension Qualified Code(s): I10 - Essential (primary) hypertension (5) CAD (coronary artery disease) Current Visit: Yes Status: Chronic Assessment and plan: chronic and controlled on lisinopril, metoprolol, simvastatin Qualifiers: Coronary Disease-Associated Artery/Lesion type: [place] artery [place] vs. transplanted heart: [place] heart Associated angina: without angina Qualified Code(s): I25.10 - Atherosclerotic heart disease of [place] coronary artery without angina pectoris (6) DVT prophylaxis Current Visit: Yes Status: Acute Assessment and plan: Lovenox 40 mg sq daily (7) Diarrhea Current Visit: Yes Status: Acute Assessment and plan: Patient still reports episodes of diarrhea with less frequency and volume He is receiving loperamide prn Qualifiers: Qualified Code(s): R19.7 - Diarrhea, unspecified - Time Spent With Patient Total time spent is greater than 50% in coordination of care (as documented) at patient's floor/unit and/or counseling patient: - Subjective Interval history: No acute events overnight, patient has no current complaints. He denies chest pain, shortness of breath, fever or chills, nausea or vomiting. He does still report diarrhea. He states he understands the plan of care. - Constitutional Vitals: Temp Pulse Resp BP Pulse Ox 98.1 F 69 18 121/65 97 08/18/17 11:21 08/18/17 11:21 08/18/17 11:21 08/18/17 11:21 08/18/17 11:21 General appearance: Present: A&O X 3, pleasant, no acute distress Exam: No acute distress Alert and oriented x3 Many scabbed wounds on the scalp from skin lesion biopsies prior to admission, they are all clean and dry Mucous membranes moist Skin warm and dry Heart regular rate, sinus rhythm with dropped beats Lungs clear to auscultation except for rhonchi in the upper right lobe, cleared by coughing Abdomen soft and nontender with normal bowel sounds Internal Medicine: Result - Labs CBC & Chem 7: 08/18/17 06:50 08/18/17 06:50 Labs: Short CBC 08/18/17 Range/Units 06:50 WBC 8.5 (4.3-11.1) K/mcL Hgb 11.4 L (12.9-16.9) g/dL Hct 34.7 L (37.5-50.1) % Plt Count 240 (140-400) K/mcL Neutrophils # 6.0 (1.6-8.9) K/mcL BMP 08/18/17 06:50 Sodium 137 Potassium 3.9 Chloride 105 Carbon Dioxide 29 BUN 12 Creatinine 0.84 Glucose 142 H Calcium 8.6 - ABG Interpretation ABG results: PT/INR, D-dimer PT 12.8 Seconds (9.4-12.1) H 08/12/17 18:20 - VTE Documentation of Mechanical Device: Intermittent pneumatic compression device Consult Discharge Plan - Plan Referrals: Keven Rice MD [Primary Care Provider] - (patient has to call for a hospital appt. per Dr. Rice Office....) <Jayson Malloy - Last Filed: 08/18/17 18:03> Date of Encounter: 08/18/17 - Assessment and plan (1) Hypertension Current Visit: Yes Status: Chronic Qualifiers: Hypertension type: essential hypertension Qualified Code(s): I10 - Essential (primary) hypertension (2) CAD (coronary artery disease) Current Visit: Yes Status: Chronic Qualifiers: Coronary Disease-Associated Artery/Lesion type: [place] artery [place] vs. transplanted heart: [place] heart Associated angina: without angina Qualified Code(s): I25.10 - Atherosclerotic heart disease of [place] coronary artery without angina pectoris (3) DVT prophylaxis Current Visit: Yes Status: Acute (4) Sepsis Current Visit: Yes Status: Resolved Qualifiers: Sepsis type: Streptococcus group B Qualified Code(s): A40.1 - Sepsis due to streptococcus, group B (5) Encephalopathy Current Visit: Yes Status: Resolved (6) Premature atrial contractions Current Visit: Yes Status: Acute (7) Diarrhea Current Visit: Yes Status: Acute Qualifiers: Qualified Code(s): R19.7 - Diarrhea, unspecified - Time Spent With Patient Total time spent is greater than 50% in coordination of care (as documented) at patient's floor/unit and/or counseling patient: - Constitutional Vitals: Temp Pulse Resp BP Pulse Ox 98.1 F 67 18 131/72 98 08/18/17 16:07 08/18/17 16:07 08/18/17 16:07 08/18/17 16:07 08/18/17 16:07 Internal Medicine: Result - Labs CBC & Chem 7: 08/18/17 06:50 08/18/17 06:50 Labs: Short CBC 08/18/17 Range/Units 06:50 WBC 8.5 (4.3-11.1) K/mcL Hgb 11.4 L (12.9-16.9) g/dL Hct 34.7 L (37.5-50.1) % Plt Count 240 (140-400) K/mcL Neutrophils # 6.0 (1.6-8.9) K/mcL BMP 08/18/17 06:50 Sodium 137 Potassium 3.9 Chloride 105 Carbon Dioxide 29 BUN 12 Creatinine 0.84 Glucose 142 H Calcium 8.6 - ABG Interpretation ABG results: PT/INR, D-dimer PT 12.8 Seconds (9.4-12.1) H 08/12/17 18:20 - Attending Attestation I examined this patient and my medical decision-making was reviewed with the Resident Physician. I agree with the documented findings, disposition and treatment plan as described except to the extent set forth below.
[2017-08-18] MEDS: Fluticasone Propionate Nasal 50 MCG/SPRAY BOTTLE NS SCH (14:14)
[2017-08-19] MEDS: Penicillin G Potassium 4,000,000 UNIT in 0.9 % Sodium Chloride 100 ML IVPB SCH ×5 (00:45→16:06)
[2017-08-19 05:49] LABS: Basophils % 0.4 %; Eosinophils # 0.2 K/mcL (0.0-0.6); Eosinophils % 2.5 %; Hematocrit 36.4 % (37.5-50.1); Hemoglobin 11.8 g/dL (12.9-16.9); Immature Granulocytes % 1.5 % (0-4); Lymphocytes # 1.3 K/mcL (0.6-4.6); Lymphocytes % 14.8 %; Mean Corpuscular HGB Conc 32.4 g/dL (31.6-35.5); Mean Corpuscular Hemoglobin 28.6 pg (28.0-33.3); Mean Corpuscular Volume 88.1 fL (83.0-100.0); Mean Platelet Volume 9.5 fL (9.4-12.4); Monocytes # 0.7 K/mcL (0.0-1.3); Monocytes % 7.7 %; Neutrophils # 6.6 K/mcL (1.6-8.9); Platelet Count 265 K/mcL (140-400); Red Blood Count 4.13 M/mcL (4.19-5.50); Red Cell Distribution Width 13.8 % (11.5-14.5); Segmented Neutrophils % 73.1 %
[2017-08-19 06:07] LABS: BUN/Creatinine Ratio 17 (6-26); Blood Urea Nitrogen 15 mg/dL (8-23); Carbon Dioxide 26 mEq/L (23-29); Chloride 105 mEq/L (98-107); Glucose 147 mg/dL (70-105); Osmolality,Calculated 288 (280-300); Sodium 137 mEq/L (136-145); eGFR For African Americans > 60 (> 60); eGFR For Non-African Americans > 60 (> 60)
[2017-08-19] MEDS: *HR* Enoxaparin 40 MG/0.4 ML SYRINGE SQ SCH (06:22)
[2017-08-19] MEDS: Insulin LISPRO 300 UNITS/3 ML VIAL SQ SCH ×3 (07:45→17:11)
[2017-08-19] MEDS: Lisinopril 20 MG TABLET PO SCH (07:46)
[2017-08-19] MEDS: Metoprolol XL (24 HR) Succ 50 MG TAB.ER.24H PO SCH (07:46)
[2017-08-19] MEDS: Fluticasone Propionate Nasal 50 MCG/SPRAY BOTTLE NS SCH (09:22)
--- NOTE | 2017-08-19 10:59 | Internal Med Progress Note ---
Date of Encounter: 08/19/17 Time of Encounter: 13:10 - Assessment and plan (1) Sepsis Current Visit: Yes Status: Resolved Assessment and plan: Patient met 2/4 SIRS criteria: Leukocytosis of 21 and fever; Now resolved - Likely due to group B strep bacteremia; source unknown at this time - CXR, CT chest, UA were all unremarkable - CT abdomen from 08/15: Nonspecific diarrheal disease. Borderline retroperitoneal lymphadenopathy and ill-defined inflammatory changes in the left lower quadrant. - No signs of cellulitis, infected wounds, or meningitis Qualifiers: Sepsis type: Streptococcus group B Qualified Code(s): A40.1 - Sepsis due to streptococcus, group B (2) Bacteremia due to group B Streptococcus Current Visit: Yes Status: Ruled-out Assessment and plan: Blood culture drawn on 08/12/17: + for group B strep; source unknown - Repeat blood CX on 08/13/17 were negative x2 - Streptococcus PCR was positive - Currently on penicillin 4 million units IV every 4 hours started on 08/13/17, day 7 - Plan will be to treat patient with penicillin for 14 day course (3) Diarrhea Current Visit: Yes Status: Acute Assessment and plan: - Patient has had watery diarrhea - Unknown etiology; possible gastroenteritis vs. c.diff - GI panel was negative - CT scan from 08/15: Nonspecific diarrheal disease. Borderline retroperitoneal lymphadenopathy and ill-defined inflammatory changes in the LLQ Qualifiers: Diarrhea type: unspecified type Qualified Code(s): R19.7 - Diarrhea, unspecified (4) Leukocytosis Current Visit: Yes Status: Acute Assessment and plan: Resolved - Patient initially presented with a white count of 21.0; has since decreased to 6.9; currently stable - Patient remains afebrile - Lumbar puncture was performed; results pending - Patient was initially placed on ampicillin, acyclovir, and Rocephin for concern of meningitis - Continue to closely monitor the patients labs Qualifiers: Leukocytosis type: unspecified Qualified Code(s): D72.829 - Elevated white blood cell count, unspecified (5) Encephalopathy Current Visit: Yes Status: Resolved Assessment and plan: Resolved - Patient initially presented with concerns of increasing confusion - Likely secondary to strep B bacteremia - Currently alert and oriented 3 (6) Hypertension Current Visit: Yes Status: Chronic Assessment and plan: - Management per primary team Qualifiers: Hypertension type: essential hypertension Qualified Code(s): I10 - Essential (primary) hypertension - Subjective Interval history: Patient was seen and examined at bedside; reports feeling well today. Reports that he had 1 loose bowel movement earlier in the day. Reports that his diarrhea is improving. States that he feels better than he did on Saturday. Denies fevers, chills, nausea, vomiting, abdominal pain. He has no complaints at this time. - Constitutional Vitals: Temp Pulse Resp BP Pulse Ox 98.4 F 69 18 134/60 96 08/19/17 10:53 08/19/17 10:53 08/19/17 10:53 08/19/17 10:53 08/19/17 10:53 General appearance: Present: A&O X 3, pleasant, no acute distress - Respiratory Respiratory exam: Present: CTAB. Absent: accessory muscle use, rales, rhonchi, wheezes Internal Medicine: Result - Labs CBC & Chem 7: 08/19/17 05:20 08/19/17 05:20 Labs: Short CBC 08/19/17 Range/Units 05:20 WBC 9.0 (4.3-11.1) K/mcL Hgb 11.8 L (12.9-16.9) g/dL Hct 36.4 L (37.5-50.1) % Plt Count 265 (140-400) K/mcL Neutrophils # 6.6 (1.6-8.9) K/mcL BMP 08/19/17 05:20 Sodium 137 Potassium 4.0 Chloride 105 Carbon Dioxide 26 BUN 15 Creatinine 0.90 Glucose 147 H Calcium 9.0 - ABG Interpretation ABG results: PT/INR, D-dimer PT 12.8 Seconds (9.4-12.1) H 08/12/17 18:20 - VTE Documentation of Mechanical Device: Intermittent pneumatic compression device Consult Discharge Plan - Plan Referrals: Keven Rice MD [Primary Care Provider] - (patient has to call for a hospital appt. per Dr. Rice Office....) Prescriptions: RX: Penicillin G Potassium [Pfizerpen] 4,000,000 unit IVPB Q4HR 8 Days #48 vial
--- NOTE | 2017-08-19 13:51 | Discharge Summary ---
<Williams Donato - Last Filed: 08/19/17 15:46> - NOTES TO OUTPATIENT PROVIDER Notes to Outpatient Provider: Patient was admitted 08/13 for Encephalopathy secondary to Sepsis. Patient was found to have GBS Bacteremia. He was started on IV PCN. The patients ecephalopathy and clinical disposition resolved, and he is being discharged with a PICC line to finish his IV PCN outpatient. Orders not resulted at time of discharge: Pending orders 08/20/17 04:00 BMP [Basic Metabolic Panel] AM 0400 Complete Blood Count [HEME] AM 0400 Date of Encounter: 08/19/17 Time of Encounter: 13:44 - Discharge Diagnosis (1) Sepsis Priority: Primary Status: Resolved Assessment and Plan: Patient clinically resolved, no white count or fever, blood cultures still without growth from 08/13 Receiving IV PCN Plan to discharge with IV PCN Qualifiers: Sepsis type: Streptococcus group B Qualified Code(s): A40.1 - Sepsis due to streptococcus, group B (2) Encephalopathy Priority: Secondary Status: Resolved Assessment and Plan: Encephalopathy resolved Patient currently a&o3 (3) Premature atrial contractions Priority: Secondary Status: Acute Assessment and Plan: Premature atrial contractions identified on EKG Patient is asymptomatic Patient advised to monitor for symptoms No other treatment anticipated (4) Hypertension Priority: Secondary Status: Chronic Assessment and Plan: Chronic and controlled with lisinopril and metoprolol Qualifiers: Hypertension type: essential hypertension Qualified Code(s): I10 - Essential (primary) hypertension (5) CAD (coronary artery disease) Priority: Secondary Status: Chronic Assessment and Plan: chronic and controlled on lisinopril, metoprolol, simvastatin Qualifiers: Coronary Disease-Associated Artery/Lesion type: l[place] artery [place] vs. transplanted heart: lytton heart Associated angina: without angina Qualified Code(s): I25.10 - Atherosclerotic heart disease of l[place] coronary artery without angina pectoris (6) DVT prophylaxis Priority: Secondary Status: Acute Assessment and Plan: Lovenox 40 mg sq daily (7) Diarrhea Priority: Secondary Status: Acute Assessment and Plan: Patient still reports episodes of diarrhea with less frequency and volume He is receiving loperamide prn Qualifiers: Diarrhea type: unspecified type Qualified Code(s): R19.7 - Diarrhea, unspecified Hospital course: Mr. Astorga is a 86 year old male who presented to the ED at [facility] for altered mental status on 08/12. He had been complaining of fatigue for 1 day and was unable to ambulate on the date of presentation, and family claimed he was disoriented. In the ED he was found to be febrile and leukocytotic, without source of infection. Imaging, rapid strep, and labs were mostly unremarkable, and blood culture was drawn. Broad spectrum antibiotics were started. On 08/13 blood culture was found to be positive for Group B Streptococcus, ID was consulted, and antibiotics were de-escalated to IV PCN. The patients altered mental status also resolved. The patient continued to receive IV PCN and sequential CBC/BMP, with improving clinical disposition. He did develop watery diarrhea, which was determined to be non-infectious by negative GI panel and CT abdomen. He was given Loperamide PRN for symptomatic relief. His clinical disposition continued to improve, and his repeat blood culture continued to show no growth. By 08/19 he was deemed stable enough to receive outpatient IV PCN and was scheduled for discharge. He will be discharged with 8 days of outpatient IV PCN. Discharge discussed with: patient, family, nurse, social work - Time Spent with Patient Total time spent providing and/or coordinating discharge services: Greater than 30 minutes - Discharge Medications Prescriptions: Penicillin G Potassium [Pfizerpen] 4,000,000 unit IVPB Q4HR 8 Days #48 vial Home Medications: Glimepiride [Amaryl] 1 mg PO BID 08/12/17 [History] Lisinopril [Zestril] 40 mg PO DAILY 08/12/17 [History] Metformin HCl [Glucophage] 1,000 mg PO BIDWM 08/12/17 [History] Metoprolol Succinate [Toprol Xl] 50 mg PO DAILY 08/12/17 [History] Sildenafil Citrate [Revatio] 20 - 100 mg PO DAILY PRN 08/12/17 [History] Simvastatin [Zocor] 20 mg PO HS 08/12/17 [History] Triamterene/Hydrochlorothiazid [Dyazide 37.5-25 Capsule] 1 cap PO DAILY [History] Penicillin G Potassium [Pfizerpen] 4,000,000 unit IVPB Q4HR 8 Days #48 vial 10/29 [Rx] Allergies/Adverse Reactions: 3 Allergy/AdvReac Type Severity Reaction Status Date / Time No Known Allergies Allergy Verified 08/12/17 17:38 Date of admission: 08/13/17 19:02 Primary care physician: Keven Rice MD Consults: 08/15/17 10:12 Consult to Infectious Diseases [CONS] Routine Consulting Provider: Infectious Disease [place] Reason for Consult: sepsis resolving, acute onset watery diarrhea x2 days Call Completed: No 08/16/17 13:59 Consult to Invasive Line Access Team [CONS] Routine Reason for Consult: home atb Line Type: EPIV 08/19/17 12:12 Consult to Invasive Line Access Team [CONS] Routine Reason for Consult: outpt atbs.-Pt currently has malfunctioning EPIV. Line Type: EPIV Discharging clinician: Williams Donato Anticipated date of discharge: 08/19/17 - Constitutional Vitals: Temp Pulse Resp BP Pulse Ox 98.4 F 69 18 134/60 96 08/19/17 10:53 08/19/17 10:53 08/19/17 10:53 08/19/17 10:53 08/19/17 10:53 General appearance: Present: A&O X 3, pleasant, no acute distress Exam: Patient in no acute distress Alert and oriented x 3 Heart in regular rate with dropped beats Lungs clear to auscultation Abdomen soft and non tender Motor 5/5 in all extremities - Patient Status Disposition: Home Health Service Condition: Good Functional capacity at discharge: independent ambulation Overall status at discharge: patient is progressing back to baseline - Discharge Instructions Instructions: Sepsis (DC), Chronic Hypertension (DC) Follow Up With: Keven Rice MD [Primary Care Provider] - (patient has to call for a hospital appt. per Dr. Rice Office....) - Diet and Activity Activity: increase activity as tolerated Diet: advance to your usual diet, regular diet - VTE Documentation of Mechanical Device: Intermittent pneumatic compression device <Jayson Malloy - Last Filed: 08/19/17 17:31> Orders not resulted at time of discharge: Pending orders 08/20/17 04:00 BMP [Basic Metabolic Panel] AM 0400 Complete Blood Count [HEME] AM 0400 Date of Encounter: 08/19/17 - Discharge Diagnosis (1) Hypertension Status: Chronic Qualifiers: Hypertension type: essential hypertension Qualified Code(s): I10 - Essential (primary) hypertension (2) CAD (coronary artery disease) Status: Chronic Qualifiers: Coronary Disease-Associated Artery/Lesion type: l[place] artery [place] vs. transplanted heart: lytton heart Associated angina: without angina Qualified Code(s): I25.10 - Atherosclerotic heart disease of [place] coronary artery without angina pectoris (3) DVT prophylaxis Status: Acute (4) Sepsis Status: Resolved Qualifiers: Sepsis type: Streptococcus group B Qualified Code(s): A40.1 - Sepsis due to streptococcus, group B (5) Encephalopathy Status: Resolved (6) Premature atrial contractions Status: Acute (7) Diarrhea Status: Acute Qualifiers: Diarrhea type: unspecified type Qualified Code(s): R19.7 - Diarrhea, unspecified Hospital course: Mr. Astorga is a 86 year old male - Time Spent with Patient Total time spent providing and/or coordinating discharge services: Date of admission: 08/13/17 19:02 Primary care physician: Keven Rice MD Consults: 08/15/17 10:12 Consult to Infectious Diseases [CONS] Routine Consulting Provider: Infectious Disease [place] Reason for Consult: sepsis resolving, acute onset watery diarrhea x2 days Call Completed: No 08/16/17 13:59 Consult to Invasive Line Access Team [CONS] Routine Reason for Consult: home atb Line Type: EPIV 08/19/17 12:12 Consult to Invasive Line Access Team [CONS] Routine Reason for Consult: outpt atbs.-Pt currently has malfunctioning EPIV. Line Type: EPIV 08/19/17 17:12 Consult to Invasive Line Access Team [CONS] Routine Reason for Consult: 2nd EPIV was placed earlier today and after completing the morning dose of antibiotics only was flushed. Afternoon dose of IV antibiotics was attempted with the EPIV flushed and again malfunctioned with inablity to flush/run. Order was obtained and True 20 cm Midline to be placed. Line Type: Midline - Constitutional Vitals: Temp Pulse Resp BP Pulse Ox 98.5 F 59 18 134/63 95 08/19/17 15:02 08/19/17 15:02 08/19/17 15:02 08/19/17 15:02 08/19/17 15:02 - Attending Attestation I examined this patient and my medical decision-making was reviewed with the Resident Physician. I agree with the documented findings, disposition and treatment plan as described except to the extent set forth below.
--- NOTE | 2017-08-19 14:30 | Physician Discharge Referral ---
Home Health/Hosp Referral Info Attending Provider: Gama Provider in Charge Post Discharge: PCP - Diagnosis (1) Sepsis Priority: Primary Status: Resolved (2) Encephalopathy Priority: Secondary Status: Resolved (3) Diarrhea Priority: Secondary Status: Acute (4) Premature atrial contractions Priority: Secondary Status: Acute (5) Hypertension Priority: Secondary Status: Chronic (6) CAD (coronary artery disease) Priority: Secondary Status: Chronic (7) DVT prophylaxis Priority: Secondary Status: Acute - Respiratory Orders None Smoking Cessation: Smoking cessation has been advised. For more information, call the [place] Tobacco Quit Line at 9-050-GTOB-NOW. - Diet/Nutrition Diet/Nutrition Orders: Regular - Activity Activity Orders: Up ad marcelo, Ambulate - Services Needed Following services are medically necessary services: Nursing, Home Health Aide, Home Infusion - Transfer Medications Prescriptions: Penicillin G Potassium [Pfizerpen] 4,000,000 unit IVPB Q4HR 8 Days #48 vial Home Medications: Glimepiride [Amaryl] 1 mg PO BID 08/12/17 [History] Lisinopril [Zestril] 40 mg PO DAILY 08/12/17 [History] Metformin HCl [Glucophage] 1,000 mg PO BIDWM 08/12/17 [History] Metoprolol Succinate [Toprol Xl] 50 mg PO DAILY 08/12/17 [History] Sildenafil Citrate [Revatio] 20 - 100 mg PO DAILY PRN 08/12/17 [History] Simvastatin [Zocor] 20 mg PO HS 08/12/17 [History] Triamterene/Hydrochlorothiazid [Dyazide 37.5-25 Capsule] 1 cap PO DAILY [History] Penicillin G Potassium [Pfizerpen] 4,000,000 unit IVPB Q4HR 8 Days #48 vial 10/29 [Rx] Allergies/Adverse Reactions: 3 Allergy/AdvReac Type Severity Reaction Status Date / Time No Known Allergies Allergy Verified 08/12/17 17:38 Certification: Further, I certify that my clinical findings support that this patient is homebound (i.e. absences from home require considerable and taxing effort and are for medical reasons or taoist services or infrequently or short duration when for other reasons) because: Homebound Reason: Patient requires assistance of a person or device to safely leave home Attestation: My signature below is to certify that this patient is under my care and that I, or nurse practitioner, or a physician's regulatory affairs assistant working with me, has a face-to -face encounter with this patient.
[2017-08-19 15:08] VITALS: BP 134/63
--- NOTE | 2017-08-19 15:31 | Infectious Disease Progress No ---
Date of Encounter: 08/19/17 Time of Encounter: 13:10 - Assessment and Plan (1) Sepsis Status: Resolved Patient met 2/4 SIRS criteria: Leukocytosis of 21 and fever; Now resolved - Likely due to group B strep bacteremia; source unknown at this time - CXR, CT chest, UA were all unremarkable - CT abdomen from 08/15: Nonspecific diarrheal disease. Borderline retroperitoneal lymphadenopathy and ill-defined inflammatory changes in the left lower quadrant. - No signs of cellulitis, infected wounds, or meningitis Qualifiers: Sepsis type: Streptococcus group B Qualified Code(s): A40.1 - Sepsis due to streptococcus, group B (2) Bacteremia due to group B Streptococcus Status: Ruled-out Blood culture drawn on 08/12/17: + for group B strep; source unknown - Repeat blood culture was ordered on 08/13/17; currently pending - Streptococcus PCR was positive - Currently on penicillin 4 million units IV every 4 hours started on 08/13/17 - We recommend 7 days of IV penicillin through 08/28 (3) Diarrhea Status: Acute - Patient has had watery diarrhea 2 days duration - Unknown etiology; possible gastroenteritis vs. c.diff - GI panel was negative - CT scan from 08/15: Nonspecific diarrheal disease. Borderline retroperitoneal lymphadenopathy and ill-defined inflammatory changes in the LLQ. - Condition greatly improved Qualifiers: Diarrhea type: unspecified type Qualified Code(s): R19.7 - Diarrhea, unspecified (4) Leukocytosis Status: Acute Resolved - Patient initially presented with a white count of 21.0; has since decreased to 6.9; currently stable - Patient remains afebrile - Lumbar puncture was performed; results pending - Patient was initially placed on ampicillin, acyclovir, and Rocephin for concern of meningitis - Continue to closely monitor the patients labs Qualifiers: Leukocytosis type: unspecified Qualified Code(s): D72.829 - Elevated white blood cell count, unspecified (5) Encephalopathy Status: Resolved Resolved - Patient initially presented with concerns of increasing confusion - Likely secondary to strep B bacteremia - Currently alert and oriented 3 (6) Hypertension Status: Chronic - Management per primary team Qualifiers: Hypertension type: essential hypertension Qualified Code(s): I10 - Essential (primary) hypertension - Subjective Interval history: Patient was seen and examined at bedside; reports feeling well today. Reports that he had 1 loose bowel movement earlier in the day. Reports that his diarrhea is improving. States that he feels better than he did on Saturday. Denies fevers, chills, nausea, vomiting, abdominal pain. He has no complaints at this time. Infect Dis PN-Objective Data - Labs CBC & Chem 7: 08/19/17 05:20 08/19/17 05:20 Labs: Laboratory Results - last 24 hr 08/18/17 08/18/17 08/18/17 08:10 11:19 16:06 WBC RBC Hgb Hct MCV MCH MCHC RDW Plt Count MPV Immature Gran % Seg Neutrophils % Lymphocytes % Monocytes % Eosinophils % Basophils % Neutrophils # Lymphocytes # Monocytes # Eosinophils # Basophils # Sodium Potassium Chloride Carbon Dioxide BUN Creatinine Est GFR ( Amer) Est GFR (Non-Af Amer) BUN/Creatinine Ratio Glucose POC Glucose 131 H 163 H 170 H Calculated Osmolality Calcium 08/18/17 08/19/17 08/19/17 20:42 05:20 05:20 WBC 9.0 RBC 4.13 L Hgb 11.8 L Hct 36.4 L MCV 88.1 MCH 28.6 MCHC 32.4 RDW 13.8 Plt Count 265 MPV 9.5 Immature Gran % 1.5 Seg Neutrophils % 73.1 Lymphocytes % 14.8 Monocytes % 7.7 Eosinophils % 2.5 Basophils % 0.4 Neutrophils # 6.6 Lymphocytes # 1.3 Monocytes # 0.7 Eosinophils # 0.2 Basophils # 0.0 Sodium 137 Potassium 4.0 Chloride 105 Carbon Dioxide 26 BUN 15 Creatinine 0.90 Est GFR ( Amer) > 60 Est GFR (Non-Af Amer) > 60 BUN/Creatinine Ratio 17 Glucose 147 H POC Glucose 137 H Calculated Osmolality 288 Calcium 9.0 08/19/17 08/19/17 07:10 10:55 WBC RBC Hgb Hct MCV MCH MCHC RDW Plt Count MPV Immature Gran % Seg Neutrophils % Lymphocytes % Monocytes % Eosinophils % Basophils % Neutrophils # Lymphocytes # Monocytes # Eosinophils # Basophils # Sodium Potassium Chloride Carbon Dioxide BUN Creatinine Est GFR ( Amer) Est GFR (Non-Af Amer) BUN/Creatinine Ratio Glucose POC Glucose 124 H 253 H Calculated Osmolality Calcium Cultures: Serology 08/15/17 Range/Units 07:05 Stl C. cayetanensis PCR Not detected (Not detect) Stool Rotavirus A PCR Not detected (Not detect) Stl Adenov F 40/41 PCR Not detected (Not detect) Stool Astrovirus (PCR) Not detected (Not detect) Stool Campylobacter PCR Not detected (Not detect) Stl C. diff Tox A/B PCR Not detected (Not detect) Stool Cryptosporidium PCR Not detected (Not detect) Stl Sh Tox Pr E STEC PCR Not detected (Not detect) Stool E coli O157 PCR Not detected (Not detect) Stl Enterotoxigenic E PCR Not detected (Not detect) Stool EPEC (PCR) Not detected (Not detect) Stool EAEC (PCR) Not detected (Not detect) Stl E. histolytica PCR Not detected (Not detect) Stool Giardia Lamblia PCR Not detected (Not detect) Stool Salmonella PCR Not detected (Not detect) Stool Sapovirus (PCR) Not detected (Not detect) Stl P. shigelloides PCR Not detected (Not detect) Stl Shigella/EIEC PCR Not detected (Not detect) St Y.enterocolitica PCR Not detected (Not detect) Stool Vibrio (PCR) Not detected (Not detect) Stl Vibrio cholerae PCR Not detected (Not detect) Stl Norovirus GI/GII PCR Not detected (Not detect) Stl GI Panel (PCR) Com See below Exam - Constitutional Vitals: Temp Pulse Resp BP Pulse Ox 98.5 F 59 18 134/63 95 08/19/17 15:02 08/19/17 15:02 08/19/17 15:02 08/19/17 15:02 08/19/17 15:02 - Head Head exam: Present: atraumatic, normal inspection, normocephalic - Respiratory Respiratory exam: Present: CTAB. Absent: prolonged expiratory phase, respiratory distress, wheezes, tachypnea - Cardiovascular Cardiovascular exam: Present: RRR, +S1, +S2. Absent: diastolic murmur, systolic murmur - GI/Abdominal GI/Abdominal exam: Present: normal bowel sounds, soft. Absent: tenderness - Psychiatric Psychiatric exam: Present: normal affect, normal mood - Skin Skin exam: Present: dry, intact - VTE Documentation of Mechanical Device: Intermittent pneumatic compression device Consult Discharge Plan - Plan Instructions: Sepsis (DC), Chronic Hypertension (DC) Referrals: Dwayne,Keven Mccann MD [Primary Care Provider] - (patient has to call for a hospital appt. per Dr. Rice Office....) Prescriptions: Penicillin G Potassium [Pfizerpen] 4,000,000 unit IVPB Q4HR 8 Days #48 vial - Attending Attestation I examined this patient and my medical decision-making was reviewed with the Resident Physician. I agree with the documented findings, disposition and treatment plan as described except to the extent set forth below.
== END 2017-08-19 17:52 | disposition home health service (06) | DRG 871 ==
LOC: 2ANU 17:26 → EMEROO 17:26 → 2ANU 23:57
PROVIDERS: ADMIT Internal Medicine Nephrology; ATTEND Internal Medicine Nephrology

== ENCOUNTER 2018-05-12 10:53 | Inpatient (IN) ==
[2018-05-12] MEDS ORDERED: 0.9 % Sodium Chloride 1,000 ML IVC ONE (11:42)
[2018-05-12 12:10] LABS: Basophils % 0.2 %; Eosinophils % 0.1 %; Hematocrit 39.1 % (37.5-50.1); Hemoglobin 12.6 g/dL (12.9-16.9); Immature Granulocytes % 0.5 % (0-4); Lymphocytes # 1.1 K/mcL (0.6-4.6); Lymphocytes % 5.8 %; Mean Corpuscular HGB Conc 32.2 g/dL (31.6-35.5); Mean Corpuscular Hemoglobin 28.3 pg (28.0-33.3); Mean Corpuscular Volume 87.9 fL (83.0-100.0); Mean Platelet Volume 9.5 fL (9.4-12.4); Monocytes % 5.7 %; Platelet Count 232 K/mcL (140-400); Red Blood Count 4.45 M/mcL (4.19-5.50); Red Cell Distribution Width 13.6 % (11.5-14.5); Segmented Neutrophils % 87.7 %
[2018-05-12 12:32] LABS: Alanine Aminotransferase 8 Units/L (7-52); Albumin 3.8 g/dL (3.5-5.7); Albumin/Globulin Ratio 1.3 (1.1-2.2); Alkaline Phosphatase 61 Units/L (34-104); Aspartate Amino Transferase 11 Units/L (13-39); BUN/Creatinine Ratio 19 (6-26); Bilirubin,Total 0.5 mg/dL (0.3-1.0); Blood Urea Nitrogen 19 mg/dL (8-23); Calcium 9.1 mg/dL (8.6-10.3); Carbon Dioxide 29 mEq/L (23-29); Chloride 100 mEq/L (98-107); Globulin 2.9 g/dL (2.4-3.5); Glucose 132 mg/dL (70-105); Osmolality,Calculated 288 (280-300); Potassium 4.2 mEq/L (3.5-5.1); Sodium 137 mEq/L (136-145); Total Protein 6.7 g/dL (6.4-8.9); eGFR For Non-African Americans > 60 (> 60)
[2018-05-12 12:34] LABS: Troponin I < 0.03 ng/mL (< 0.04)
[2018-05-12 12:46] LABS: Bilirubin,Urine Negative (Negative); Blood,Urine Negative (Negative); Clarity,Urine Clear (Clear); Color,Urine Yellow (Yellow); Glucose,Urine (UA) Normal (Normal); Ketones,Urine Negative (Negative); Leukocyte Esterase,Urine Negative (Negative); Nitrite,Urine Negative (Negative); PH,Urine 7.5 pH Units (5.0-8.0); Protein,Urine 30 mg/dL (Neg-Trace); Specific Gravity,Urine 1.019 (1.010-1.025); Urobilinogen,Urine Normal (Normal)
[2018-05-12 12:54] LABS: Bacteria,Urine None Seen per hpf (None-Few); Hyaline Casts,Urine None Seen per lpf (None-Few); RBC,Urine 0-3 per hpf (0-3); Squamous Epithelial Cell,Urine Few per lpf (None-Few); WBC,Urine 0-3 per hpf (0-3)
[2018-05-12] MEDS ORDERED: Piperacillin/Tazobactam 4.5 GM in 0.9 % Sodium Chloride Mini Bag 100 ML IVPB ONE (13:41)
--- NOTE | 2018-05-12 13:48 | Emergency Department Note ---
Disposition Clinical Impression: Leukocytosis, Generalized weakness Disposition: Admitted As Inpatient Condition: Good Referrals: Keven Rice MD [Primary Care Provider] - Forms: ED Satisfaction Letter General Adult HPI - General Chief complaint: ED Dizziness Stated complaint: dizziness Time Seen by Provider: 05/12/18 11:25 - History of Present Illness HPI Narrative: Patient 87-year-old gentleman who presents to the emergency department with chief complaint of generalized weakness. The patient states for several days he has been feeling weaker and weaker and this morning approximately 1 AM got up and felt as though he was going to fall but did not. The patient states he took some medication for "dizziness" the patient reports that he had a similar episode after he had had some dermatological surgeries in the past and developed bacteremia. The patient denies fevers at home and states that the last time his blood counts were checked his white blood cell count was low. The patient denies chest pain denies cough denies dysuria denies diarrhea or vomiting or abdominal pain. The patient states not improved by anything Pain Scale: 0 - Related Data Home Medications Medication Instructions Recorded Confirmed Glimepiride [Amaryl] 1 mg PO BID 08/12/17 08/12/17 Lisinopril [Zestril] 40 mg PO DAILY 08/12/17 08/12/17 Metformin HCl [Glucophage] 1,000 mg PO BIDWM 08/12/17 08/12/17 Metoprolol Succinate [Toprol Xl] 50 mg PO DAILY 08/12/17 08/12/17 Sildenafil Citrate [Revatio] 20 - 100 mg PO DAILY PRN 08/12/17 08/12/17 Simvastatin [Zocor] 20 mg PO HS 08/12/17 08/12/17 Triamterene/Hydrochlorothiazid 1 cap PO DAILY 08/12/17 08/12/17 [Dyazide 37.5-25 Capsule] Previous Rx's Medication Instructions Recorded PredniSONE [Deltasone] 20 mg PO DAILY #12 tablet 11/30/17 Tizanidine HCl 4 mg PO TID #15 tablet 11/30/17 Allergies Allergy/AdvReac Type Severity Reaction Status Date / Time No Known Allergies Allergy Verified 11/30/17 16:44 All systems ED: reviewed and negative except as stated. Past Medical History - Past Medical History Attestation: Yes The following information was validated with the patient. Medical history: Reports: cancer, diabetes, hyperlipidemia, hypertension Surgical history: Reports: angioplasty/stent Psychiatric history: Reports: no psych history - Social History Smoking Status: Never smoker Smokeless Tobacco Status: No Alcohol use: Reports: none Drug use: Reports: none Physical Exam - General Limitations: no limitations General appearance: alert - Head Head exam: atraumatic, normocephalic, normal inspection - Eye Eye exam: Present: normal appearance, PERRL, EOMI - Expanded Eye Exam Pupils: Left: reactive - ENT ENT exam: normal exam, normal oropharynx, mucous membranes moist - Expanded ENT Exam External ear exam: Present: normal external inspection Mouth exam: Present: normal external inspection Teeth exam: Present: normal inspection Throat exam: Present: normal inspection - Neck Neck exam: Present: normal inspection, full ROM, trachea midline - Chest Chest inspection: Present: normal inspection, symmetric chest wall rise - Respiratory Respiratory exam: Present: normal lung sounds bilaterally - Cardiovascular Cardiovascular exam: Present: regular rate, normal rhythm, normal heart sounds - Abdominal Exam Abdominal exam: Present: soft, Non-Tender. Absent: tenderness, distention, guarding, rebound, rigidity - Extremities Exam Extremities exam: Present: normal inspection, full ROM. Absent: tenderness, pedal edema - Expanded Upper Extremity Exam Shoulder exam: Present: normal inspection, full ROM Arm exam: Present: normal inspection, full ROM Elbow exam: Present: normal inspection, full ROM Forearm/Wrist exam: Present: normal inspection, full ROM Hand exam: Present: normal inspection, full ROM Vascular exam: Normal: capillary refill, radial pulse - Expanded Lower Extremity Exam Hip/Pelvis exam: Present: normal inspection, full ROM Upper leg exam: Present: normal inspection, full ROM Knee exam: Present: normal inspection, full ROM Lower leg exam: Present: normal inspection, full ROM Ankle exam: Present: normal inspection, full ROM Foot/toe exam: Present: normal inspection, full ROM Neurovascular/Tendon exam: Absent: motor deficit, sensory deficit, tendon deficit - Back Exam Back exam: Present: normal inspection, full ROM. Absent: tenderness - Neurological Exam Neurological exam: Present: alert, oriented X3 - Expanded Neurological Exam Patient oriented to: Present: person, place, time Coma Scale Eye Opening: Spontaneous Coma Scale Motor Response: Obeys Commands Coma Scale Verbal Response: Oriented Coma Scale Total: 15 - Psychiatric Psychiatric exam: Present: normal affect, normal mood - Skin Skin exam: Present: warm, dry, intact, normal color, other (There is a diabetic ulcer present on the left great toe, there is no purulent discharge) Course Course Narrative: Given the patient has a significant elevated white blood cell count and with prior history of similar presentation with bacteremia in the past case was discussed with the hospitalist. The patient was started empirically on E-Mycin and Zosyn and the patient will be admitted to the hospitalist service Vital Signs Temperature 99.5 F 05/12/18 10:53 Pulse Rate 83 05/12/18 10:53 Respiratory Rate 05/12/18 10:53 Blood Pressure 138/68 05/12/18 10:53 O2 Sat by Pulse Oximetry 97 05/12/18 10:53 Temperature 99.5 F 05/12/18 10:53 Pulse Rate 83 05/12/18 10:53 Respiratory Rate 05/12/18 10:53 Blood Pressure 138/68 05/12/18 10:53 O2 Sat by Pulse Oximetry 97 05/12/18 10:53 Oxygen Delivery Oxygen Delivery Room Air Medical Decision Making - Lab Data Result diagrams: 05/12/18 11:55 05/12/18 11:55 Lab Results 05/12/18 05/12/18 05/12/18 Range/Units 11:55 11:55 11:55 WBC 18.3 H (4.3-11.1) K/mcL RBC 4.45 (4.19-5.50) M/mcL Hgb 12.6 L (12.9-16.9) g/dL Hct 39.1 (37.5-50.1) % MCV 87.9 (83.0-100.0) fL MCH 28.3 (28.0-33.3) pg MCHC 32.2 (31.6-35.5) g/dL RDW 13.6 (11.5-14.5) % Plt Count 232 (140-400) K/mcL MPV 9.5 (9.4-12.4) fL Immature Gran % 0.5 (0-4) % Seg Neutrophils % 87.7 % Lymphocytes % 5.8 % Monocytes % 5.7 % Eosinophils % 0.1 % Basophils % 0.2 % Neutrophils # 16.0 H (1.6-8.9) K/mcL Lymphocytes # 1.1 (0.6-4.6) K/mcL Monocytes # 1.0 (0.0-1.3) K/mcL Eosinophils # 0.0 (0.0-0.6) K/mcL Basophils # 0.0 (0.0-0.2) K/mcL Sodium 137 (136-145) mEq/L Potassium 4.2 (3.5-5.1) mEq/L Chloride 100 (98-107) mEq/L Carbon Dioxide 29 (23-29) mEq/L BUN 19 (8-23) mg/dL Creatinine 0.98 (0.70-1.30) mg/dL Est GFR ( Amer) > 60 (> 60) Est GFR (Non-Af Amer) > 60 (> 60) BUN/Creatinine Ratio 19 (6-26) Glucose 132 H (70-105) mg/dL Calculated Osmolality 288 (280-300) Lactic Acid 1.4 (0.5-2.2) mmol/L Calcium 9.1 (8.6-10.3) mg/dL Total Bilirubin 0.5 (0.3-1.0) mg/dL AST 11 L (13-39) Units/L ALT 8 (7-52) Units/L Alkaline Phosphatase 61 (34-104) Units/L Troponin I < 0.03 (< 0.04) ng/mL Serum Total Protein 6.7 (6.4-8.9) g/dL Albumin 3.8 (3.5-5.7) g/dL Globulin 2.9 (2.4-3.5) g/dL Albumin/Globulin Ratio 1.3 (1.1-2.2) Urine Color (Yellow) Urine Clarity (Clear) Urine pH (5.0-8.0) pH Units Ur Specific [place] (1.010-1.025) Urine Protein (Neg-Trace) mg/dL Urine Glucose (UA) (Normal) mg/dL Urine Ketones (Negative) mg/dL Urine Blood (Negative) Urine Nitrite (Negative) Urine Bilirubin (Negative) Urine Urobilinogen (Normal) mg/dL Ur Leukocyte Esterase (Negative) Urine Microscopic RBC (0-3) per hpf Urine Microscopic WBC (0-3) per hpf Ur Squamous Epith Cells (None-Few) per lpf Urine Bacteria (None-Few) per hpf Hyaline Casts (None-Few) per lpf Ur Culture Indicated? (NO) 05/12/18 Range/Units 12:14 WBC (4.3-11.1) K/mcL RBC (4.19-5.50) M/mcL Hgb (12.9-16.9) g/dL Hct (37.5-50.1) % MCV (83.0-100.0) fL MCH (28.0-33.3) pg MCHC (31.6-35.5) g/dL RDW (11.5-14.5) % Plt Count (140-400) K/mcL MPV (9.4-12.4) fL Immature Gran % (0-4) % Seg Neutrophils % % Lymphocytes % % Monocytes % % Eosinophils % % Basophils % % Neutrophils # (1.6-8.9) K/mcL Lymphocytes # (0.6-4.6) K/mcL Monocytes # (0.0-1.3) K/mcL Eosinophils # (0.0-0.6) K/mcL Basophils # (0.0-0.2) K/mcL Sodium (136-145) mEq/L Potassium (3.5-5.1) mEq/L Chloride (98-107) mEq/L Carbon Dioxide (23-29) mEq/L BUN (8-23) mg/dL Creatinine (0.70-1.30) mg/dL Est GFR ( Amer) (> 60) Est GFR (Non-Af Amer) (> 60) BUN/Creatinine Ratio (6-26) Glucose (70-105) mg/dL Calculated Osmolality (280-300) Lactic Acid (0.5-2.2) mmol/L Calcium (8.6-10.3) mg/dL Total Bilirubin (0.3-1.0) mg/dL AST (13-39) Units/L ALT (7-52) Units/L Alkaline Phosphatase (34-104) Units/L Troponin I (< 0.04) ng/mL Serum Total Protein (6.4-8.9) g/dL Albumin (3.5-5.7) g/dL Globulin (2.4-3.5) g/dL Albumin/Globulin Ratio (1.1-2.2) Urine Color Yellow (Yellow) Urine Clarity Clear (Clear) Urine pH 7.5 (5.0-8.0) pH Units Ur Specific [place] 1.019 (1.010-1.025) Urine Protein 30 H (Neg-Trace) mg/dL Urine Glucose (UA) Normal (Normal) mg/dL Urine Ketones Negative (Negative) mg/dL Urine Blood Negative (Negative) Urine Nitrite Negative (Negative) Urine Bilirubin Negative (Negative) Urine Urobilinogen Normal (Normal) mg/dL Ur Leukocyte Esterase Negative (Negative) Urine Microscopic RBC 0-3 (0-3) per hpf Urine Microscopic WBC 0-3 (0-3) per hpf Ur Squamous Epith Cells Few (None-Few) per lpf Urine Bacteria None Seen (None-Few) per hpf Hyaline Casts None Seen (None-Few) per lpf Ur Culture Indicated? NO (NO)
[2018-05-12] MEDS ORDERED: Piperacillin/Tazobactam 3.375 GM in Water for inj. (sterile) 20 ML 20 ML IVP ONE (14:02)
[2018-05-12] MEDS ORDERED: Piperacillin/Tazobactam 3.375 GM in 0.9 % Sodium Chloride Mini Bag 100 ML IVPB ONE (14:11)
--- NOTE | 2018-05-12 17:51 | Internal Med History&Physical ---
Date of Encounter: 05/12/18 Time of Encounter: 16:00 Internal Medicine - H&P: HPI Chief complaint: Generalized weakness Admitted From: Home Plans for Post Hospital Care: Home History of present illness: Patient is an 87-year-old male with past medical history significant for squamous cell carcinoma, basal cell carcinoma, hypertension, hyperlipidemia, diabetes and coronary arterial disease who presents due to generalized weakness and dizziness. Patient reports this morning that he was too weak to ambulate and had some dizz iness therefore significant other brought him into the ER for further evaluation. In the ER patient afebrile but found to have leukocytosis with white blood cell count of 18.3. Chest x-ray showed no evidence for acute cardiopulmonary process. Urinalysis with no evidence for UTI. Blood cultures were taken and are pending Due to patients prior history of positive scalp cultures positive for MRSA, Klebsiella, Serratia, and strep will continue prophylactic dose of IV vancomycin and IV Zosyn started in the ER. Will also consult infectious disease for further recommendations. Past Med Surg Social Fam HX - Past Medical History Medical history: cancer, diabetes, hyperlipidemia, hypertension Additional medical history: Carcinoma in Situ, Scrotal mass, Stasis dermatitis. Psychiatric history: no psych history - Past Surgical History Surgical History: angioplasty/stent Additional surgical history: Basal cell adinoma removed, - Social History Smoking Status: Never smoker Smokeless Tobacco Status: No Alcohol use: none Drug use: none - Family History Son Hx Family Cancer: Yes (Prostate) Mother Adopted: No Family Member Ethnicity: Non- Living Status: Hx Family Cardiac Disorders: Yes Hx Family Respiratory Disorders: No Hx Family Cancer: No Hx Family GI Disorders: No Hx Family Endocrine Disorder: Yes Hx Family Neuromuscular Disorders: No Hx Family Neurologic Disorders: No Hx Family HEENT Disorders: No Hx Family Autoimmune Disorders: No Father Adopted: No Family Member Ethnicity: Non- Living Status: Hx Family Cardiac Disorders: No Hx Family Respiratory Disorders: No Hx Family Cancer: No Hx Family GI Disorders: No Hx Family Endocrine Disorder: No Hx Family Neuromuscular Disorders: No Hx Family Neurologic Disorders: No Hx Family HEENT Disorders: No Hx Family Autoimmune Disorders: No Internal Medicine - H&P: Meds Glimepiride [Amaryl] 1 mg PO BID 08/12/17 [History] Lisinopril [Zestril] 40 mg PO DAILY 08/12/17 [History] Metformin HCl [Glucophage] 1,000 mg PO BIDWM 08/12/17 [History] Metoprolol Succinate [Toprol Xl] 50 mg PO DAILY 08/12/17 [History] Sildenafil Citrate [Revatio] 20 - 100 mg PO DAILY PRN 08/12/17 [History] Simvastatin [Zocor] 20 mg PO HS 08/12/17 [History] Triamterene/Hydrochlorothiazid [Dyazide 37.5-25 Capsule] 1 cap PO DAILY 08/12/17 [History] PredniSONE [Deltasone] 20 mg PO DAILY #12 tablet 11/30/17 [Rx] Tizanidine HCl 4 mg PO TID #15 tablet 11/30/17 [Rx] Allergy/AdvReac Type Severity Reaction Status Date / Time No Known Allergies Allergy Verified 11/30/17 16:44 All Systems PM: A 10-system review of systems was performed and is negative for pertinent findings except as documented above in the HPI. - Constitutional Vitals: Temp Pulse Resp BP Pulse Ox 99.5 F 79 15 125/48 96 05/12/18 10:53 05/12/18 16:01 05/12/18 16:01 05/12/18 16:01 05/12/18 16:01 General appearance: Present: A&O X 3, no acute distress Exam: As above - Head Head exam: Present: normocephalic - Respiratory Respiratory exam: Present: CTAB. Absent: accessory muscle use, rales, rhonchi, wheezes - Cardiovascular Cardiovascular exam: Present: RRR, +S1, +S2. Absent: diastolic murmur, gallop, rubs, systolic murmur - GI/Abdominal GI/Abdominal exam: Present: soft - Extremities Exam Extremities exam: Absent: pedal edema - Neurological Exam Neurological exam: Present: oriented X3 - Psychiatric Psychiatric exam: Present: normal mood - Skin Skin exam: Present: excoriation (Multiple scalp excisions) Internal Med - H&P Results - Labs CBC & Chem 7: 05/12/18 11:55 05/12/18 11:55 Labs: Short CBC 05/12/18 Range/Units 11:55 WBC 18.3 H (4.3-11.1) K/mcL Hgb 12.6 L (12.9-16.9) g/dL Hct 39.1 (37.5-50.1) % Plt Count 232 (140-400) K/mcL Neutrophils # 16.0 H (1.6-8.9) K/mcL BMP 05/12/18 11:55 Sodium 137 Potassium 4.2 Chloride 100 Carbon Dioxide 29 BUN 19 Creatinine 0.98 Glucose 132 H Calcium 9.1 Cardiac Enzymes 05/12/18 Range/Units 11:55 Troponin I < 0.03 (< 0.04) ng/mL Liver Function 05/12/18 Range/Units 11:55 Total Bilirubin 0.5 (0.3-1.0) mg/dL AST 11 L (13-39) Units/L ALT 8 (7-52) Units/L Alkaline Phosphatase 61 (34-104) Units/L Albumin 3.8 (3.5-5.7) g/dL Urine 05/12/18 Range/Units 12:14 Urine Color Yellow (Yellow) Urine Clarity Clear (Clear) Urine pH 7.5 (5.0-8.0) pH Units Ur Specific [place] 1.019 (1.010-1.025) Urine Protein 30 H (Neg-Trace) mg/dL Urine Glucose (UA) Normal (Normal) mg/dL - Impressions ITS Impressions Chest X-Ray 05/12/18 11:42 IMPRESSION: No evidence for acute cardiopulmonary process. D/ / Raúl Higgins MD / Raúl Higgins MD Interpreting Provider: Raúl Higgins MD - Assessment and Plan (1) Generalized weakness Current Visit: Yes Status: Acute Assessment and plan: Patient presents with one-day history of generalized weakness as he states that he is unable to ambulate with cane. PT/OT consulted and appreciate recommendations. (2) Leukocytosis Current Visit: Yes Status: Acute Assessment and plan: In the ER patient afebrile but found to have leukocytosis with white blood cell count of 18.3. Chest x-ray showed no evidence for acute cardiopulmonary process. Urinalysis with no evidence for UTI. Blood cultures were taken and are pending Due to patients prior history of positive scalp cultures positive for MRSA, Klebsiella, Serratia, and strep will continue prophylactic dose of IV vancomycin and IV Zosyn started in the ER. Will also consult infectious disease for further recommendations. Qualifiers: Leukocytosis type: unspecified Qualified Code(s): D72.829 - Elevated white blood cell count, unspecified (3) CAD (coronary artery disease) Current Visit: No Status: Chronic Assessment and plan: Continue home medications Qualifiers: Coronary Disease-Associated Artery/Lesion type: [place] artery [place] vs. transplanted heart: [place] heart Associated angina: without angina Qualified Code(s): I25.10 - Atherosclerotic heart disease of [place] coronary artery without angina pectoris (4) Hypertension Current Visit: No Status: Chronic Assessment and plan: Continue home medications Qualifiers: Hypertension type: essential hypertension Qualified Code(s): I10 - Essential (primary) hypertension (5) DVT prophylaxis Current Visit: No Status: Acute Assessment and plan: Subcutaneous heparin - Time Spent With Patient Total time spent is greater than 50% in coordination of care (as documented) at patient's floor/unit and/or counseling patient:
[2018-05-12] MEDS ORDERED: Naloxone 0.4 MG/ML INJ IVP PRN (18:02)
--- NOTE | 2018-05-12 19:25 | Electrocardiograph Report ---
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
[2018-05-12] MEDS ORDERED: D5% in Water 1,000 ML IVC PRN (19:40)
[2018-05-12] MEDS ORDERED: *HR* Dextrose 50 % in Water (Syg) 50 ML SYRINGE IVP PRN (19:40)
[2018-05-12] MEDS ORDERED: Dextrose Gel 15 GM/37.5 ML TUBE PO PRN ×2 (19:40)
[2018-05-12] MEDS ORDERED: *HR* HYDROcodone/Acet 5/325 mg TABLET PO PRN (20:34)
[2018-05-12] MEDS: Insulin LISPRO 300 UNITS/3 ML VIAL SQ SCH (21:29)
[2018-05-13] MEDS: Piperacillin/Tazobactam 3.375 GM in 0.9 % Sodium Chloride Mini Bag 100 ML IVPB SCH ×2 (00:53→08:30)
[2018-05-13 04:12] LABS: Basophils % 0.3 %; Eosinophils # 0.1 K/mcL (0.0-0.6); Eosinophils % 1.3 %; Hemoglobin 11.4 g/dL (12.9-16.9); Immature Granulocytes % 0.3 % (0-4); Lymphocytes # 1.5 K/mcL (0.6-4.6); Lymphocytes % 15.9 %; Mean Corpuscular HGB Conc 32.6 g/dL (31.6-35.5); Mean Corpuscular Hemoglobin 28.4 pg (28.0-33.3); Mean Corpuscular Volume 87.3 fL (83.0-100.0); Mean Platelet Volume 9.6 fL (9.4-12.4); Monocytes % 10.3 %; Neutrophils # 6.8 K/mcL (1.6-8.9); Platelet Count 205 K/mcL (140-400); Red Blood Count 4.01 M/mcL (4.19-5.50); Red Cell Distribution Width 13.8 % (11.5-14.5); Segmented Neutrophils % 71.9 %
[2018-05-13 04:28] LABS: BUN/Creatinine Ratio 18 (6-26); Blood Urea Nitrogen 15 mg/dL (8-23); Calcium 8.6 mg/dL (8.6-10.3); Carbon Dioxide 26 mEq/L (23-29); Chloride 105 mEq/L (98-107); Glucose 117 mg/dL (70-105); Osmolality,Calculated 286 (280-300); Potassium 3.7 mEq/L (3.5-5.1); Sodium 137 mEq/L (136-145); eGFR For Non-African Americans > 60 (> 60)
[2018-05-13] MEDS: *HR* Heparin 5,000 UNIT/ML VIAL SQ SCH ×4 (05:15→20:23)
[2018-05-13 06:41] LABS: Estimated Average Glucose 143 mg/dl; Hemoglobin A1C 6.6 %
[2018-05-13] MEDS: Insulin LISPRO 300 UNITS/3 ML VIAL SQ SCH ×4 (08:23→20:23)
--- NOTE | 2018-05-13 10:46 | Internal Med Progress Note ---
Hospitalist Progress Note - Encounter Date of Encounter: 05/13/18 Time of Encounter: 11:00 - Subjective Interval History: Patient is an 87-year-old male with past medical history significant for squamous cell carcinoma, basal cell carcinoma with skin (scalp) infections including MRSA, Klebsiella, Serratia and Stenotrophomonas who presents due to generalized weakness and dizziness found to have leukocytosis. Leukocytosis has resolved this morning after initiating IV broad spectrum antibiotics There are concerns for potential scalp skin infection - Exam Vitals: Temp Pulse Resp BP Pulse Ox 99.3 F 61 16 127/70 97 05/13/18 10:02 05/13/18 10:02 05/13/18 10:02 05/13/18 10:02 05/13/18 10:02 Exam: Gen.: Nonacute distress, alert and oriented 3 ENT: Mucosal membranes moist Respiratory: Lungs are clear to auscultation bilaterally without any wheezing rhonchi or rales Cardiovascular: Normal S1 and S2 regular rate rhythm no murmurs rubs or gallops Abdomen: Soft, nontender and nondistended with positive bowel sounds Extremities: No lower extremity edema Skin: Normal color - Assessment and Plan (1) Leukocytosis Current Visit: Yes Status: Acute Assessment and Plan: In the ER patient afebrile but found to have leukocytosis with white blood cell count of 18.3. Patient's leukocytosis has resolved this morning we will follow white blood cell count 9.5 Chest x-ray showed no evidence for acute cardiopulmonary process. Urinalysis with no evidence for UTI. Blood cultures were taken and are pending Due to patients prior history of positive scalp cultures positive for MRSA, Klebsiella, Serratia, and Stenotrophomonas will continue prophylactic dose of IV vancomycin and IV Zosyn started in the ER. Will also consult infectious disease for further recommendations. (2) Generalized weakness Current Visit: Yes Status: Acute Assessment and Plan: Patient presents with one-day history of generalized weakness as he states that he is unable to ambulate with cane. PT/OT consulted and appreciate recommendations. (3) CAD (coronary artery disease) Current Visit: No Status: Chronic Assessment and Plan: Continue home medications (4) Hypertension Current Visit: No Status: Chronic DVT Prophylaxis: Heparin subcutaneous ' - Time Spent with Patient Total time spent is greater than 50% in coordination of care (as documented) at patient's floor/unit and/or counseling patient: Internal Medicine: Result - Labs CBC & Chem 7: 05/13/18 03:39 05/13/18 03:39 Labs: Short CBC 05/12/18 05/13/18 Range/Units 11:55 03:39 WBC 18.3 H 9.5 (4.3-11.1) K/mcL Hgb 12.6 L 11.4 L (12.9-16.9) g/dL Hct 39.1 35.0 L (37.5-50.1) % Plt Count 232 205 (140-400) K/mcL Neutrophils # 16.0 H 6.8 (1.6-8.9) K/mcL BMP 05/12/18 05/13/18 11:55 03:39 Sodium 137 137 Potassium 4.2 3.7 Chloride 100 105 Carbon Dioxide 29 26 BUN 19 15 Creatinine 0.98 0.84 Glucose 132 H 117 H Calcium 9.1 8.6 Cardiac Enzymes 05/12/18 Range/Units 11:55 Troponin I < 0.03 (< 0.04) ng/mL Liver Function 05/12/18 Range/Units 11:55 Total Bilirubin 0.5 (0.3-1.0) mg/dL AST 11 L (13-39) Units/L ALT 8 (7-52) Units/L Alkaline Phosphatase 61 (34-104) Units/L Albumin 3.8 (3.5-5.7) g/dL Urine 05/12/18 Range/Units 12:14 Urine Color Yellow (Yellow) Urine Clarity Clear (Clear) Urine pH 7.5 (5.0-8.0) pH Units Ur Specific [place] 1.019 (1.010-1.025) Urine Protein 30 H (Neg-Trace) mg/dL Urine Glucose (UA) Normal (Normal) mg/dL - Impressions Impressions Chest X-Ray 05/12/18 11:42 IMPRESSION: No evidence for acute cardiopulmonary process. D/ / Raúl Higgins MD / Raúl Higgins MD Interpreting Provider: Raúl Higgins MD Consult Discharge Plan - Plan Referrals: Keven Rice MD [Primary Care Provider] - (1) Leukocytosis Qualifiers: Leukocytosis type: unspecified Qualified Code(s): D72.829 - Elevated white blood cell count, unspecified (3) CAD (coronary artery disease) Qualifiers: Coronary Disease-Associated Artery/Lesion type: [place] artery [place] vs. transplanted heart: [place] heart Associated angina: without angina Qualified Code(s): I25.10 - Atherosclerotic heart disease of [place] coronary artery without angina pectoris (4) Hypertension Qualifiers: Hypertension type: essential hypertension Qualified Code(s): I10 - Essential (primary) hypertension
[2018-05-13] MEDS: Lisinopril 20 MG TABLET PO SCH (11:53)
[2018-05-13] MEDS: Aspirin 81 MG TAB.CHEW PO SCH (11:53)
[2018-05-13 16:35] LABS: Adenovirus Not Detected (Not Detect); Bordetella Pertussis Not Detected (Not Detect); Chlamydophila pneumoniae Not Detected (Not Detect); Coronavirus 229E Not Detected (Not Detect); Coronavirus HKU1 Not Detected (Not Detect); Coronavirus NL63 Not Detected (Not Detect); Coronavirus OC43 Not Detected (Not Detect); Human Metapneumovirus Not Detected (Not Detect); Human Rhinovirus/Enterovirus Not Detected (Not Detect); Influenza A Subtype 2009 H1 Not Detected (Not Detect); Influenza A Untypeable Not Detected (Not Detect); Influenza B Not Detected (Not Detect); Mycoplasma pneumoniae Not Detected (Not Detect); Parainfluenza Virus 1 Not Detected (Not Detect); Parainfluenza Virus 2 Not Detected (Not Detect); Parainfluenza Virus 3 Not Detected (Not Detect); Parainfluenza Virus 4 Not Detected (Not Detect); Respiratory Syncytial Virus Not Detected (Not Detect)
--- NOTE | 2018-05-13 17:07 | Infectious Disease Consult ---
Date of Encounter: 05/13/18 Time of Encounter: 17:05 Assessment and Plan (1) Leukocytosis Status: Acute Assessment and plan: etiology not clear infection vs other? WBC improved within hours of arrival to the hospital? check procalcitonin check ESR, CRP if more leukocytosis, check peripheral smear d/w Dr. Blum Qualifiers: Leukocytosis type: unspecified Qualified Code(s): D72.829 - Elevated white blood cell count, unspecified (2) Rhinorrhea Status: Acute Assessment and plan: Patient with rhinorrhea, sneezing and coughing check RIP to rule out viral syndrome vs sinusitis vs bronchitis (3) Scalp lesion Status: Acute Assessment and plan: does not appear infected (4) Generalized weakness Status: Acute Assessment and plan: etiology? (5) Skin cancer of forehead Status: Acute Assessment and plan: chronic lesions no change from previous time i saw the patient no obvious infection dont believe that's the source of leukocytosis (6) Dizziness Status: Acute Infectious Disease HPI - Data of Consult Patient: known to practice within the last 3 years Consult date: 05/13/18 Requesting Physician: Edmond Blum Primary Care Provider: Keven Rice MD - Consult Narrative Reason for consult: weakness, leukocytosis History of present illness: Mr. Astorga is a 87 year old male 87 year old male, with a past medical hx of DM, HLD, HTN, CAD, SCC, and BCC, presented to the ED on 05/12/2018 for generalized weakness that began a few days prior. He states that he recently had several skin cancers removed from his scalp. At this time, he admitted to subjective fevers at home, rhinorrhea, and cough for the past week, but denied nausea, vomiting, chest pain, dyspnea. Patient was admitted for generalized weakness, leukocytosis. ID consult was made for further medical management recommendations, as ID saw this patient at his prior admission in August 2017. He states that this has happened before in August 2017 and that both episodes seems to be linked to the removal of skin cancer lesions on his scalp. In July 2017, he was treated with oral antibiotics after a skin lesion become infected following cancer removal. He was subsequently admitted for sepsis, Str eptococcus B bacteremia, encephalopathy. He was then treated with IV Penicillin. In the ED, patient was mildly febrile at 99.5, not tachycardic, tachypneic, or dyspneic. Lab demonstrated leukocytosis of 18.3, lactic acid of 1.4, SCr 0.84, and UA negative for infection. CXR normal. Since admission, patient states he is feeling better than previous. Leukocytosis has resolved to 9.5 Patient denies any new exposures to animals, infective agents; denies history of HIV or hepatitis. Today the patient is in no acute distress, A&O x3; denies chest pain, dyspnea, abdominal pain, nausea, vomiting. Exam: RRR, mild wheezing throughout lungs, bowel sounds present, soft/ non-tender abdomen; scalp is erythematous without drainage, multiple small lesions with dark-colored scabs throughout scalp that a re non-tender. CC: Edmond Blum Past Med Surg Social Fam HX - Past Medical History Medical history: cancer, diabetes, hyperlipidemia, hypertension Additional medical history: Carcinoma in Situ, Scrotal mass, Stasis dermatitis. Psychiatric history: no psych history - Past Surgical History Surgical History: angioplasty/stent Additional surgical history: Basal cell adinoma removed, - Social History Smoking Status: Never smoker Smokeless Tobacco Status: No Alcohol use: none Drug use: none - Family History Father Adopted: No Family Member Ethnicity: Non- Living Status: Hx Family Cardiac Disorders: No Hx Family Respiratory Disorders: No Hx Family Cancer: No Hx Family GI Disorders: No Hx Family Endocrine Disorder: No Hx Family Neuromuscular Disorders: No Hx Family Neurologic Disorders: No Hx Family HEENT Disorders: No Hx Family Autoimmune Disorders: No Mother Adopted: No Family Member Ethnicity: Non- Living Status: Hx Family Cardiac Disorders: Yes Hx Family Respiratory Disorders: No Hx Family Cancer: No Hx Family GI Disorders: No Hx Family Endocrine Disorder: Yes Hx Family Neuromuscular Disorders: No Hx Family Neurologic Disorders: No Hx Family HEENT Disorders: No Hx Family Autoimmune Disorders: No Son Hx Family Cancer: Yes (Prostate) Infectious Disease-CN:Meds RX: Glimepiride [Amaryl] 1 mg PO BID 08/12/17 [History] RX: Lisinopril [Zestril] 40 mg PO DAILY 08/12/17 [History] RX: Metformin HCl [Glucophage] 1,000 mg PO BIDWM 08/12/17 [History] RX: Metoprolol Succinate [Toprol Xl] 50 mg PO DAILY 08/12/17 [History] RX: Sildenafil Citrate [Revatio] 20 - 100 mg PO DAILY PRN 08/12/17 [History] RX: Simvastatin [Zocor] 20 mg PO HS 08/12/17 [History] RX: Triamterene/Hydrochlorothiazid [Dyazide 37.5-25 Capsule] 1 mg PO DAILY 08/12/17 [History] RX: Aspirin 81 mg PO DAILY 05/12/18 [History] RX: Clobetasol Propionate 0.05% [Temovate 0.05%] 1 appl TP AD 05/13/18 [History] Allergy/AdvReac Type Severity Reaction Status Date / Time No Known Allergies Allergy Verified 11/30/17 16:44 - Constitutional Constitutional: Present: chills, fever(s). Absent: night sweats, weight loss - EENT Eyes: Absent: blind spots, blurry vision Ears: Absent: ear pain Nose, mouth and throat: Present: dizziness, nasal discharge. Absent: dysphagia, odynophagia, sinus pain, sore throat, tongue swelling - Cardiovascular Cardiovascular: Absent: chest pain, dyspnea, edema - Respiratory Respiratory: Present: cough. Absent: wheezing, excessive phlegm production Additional comments: sneezing - Gastrointestinal Gastrointestinal: Absent: abdominal pain, constipation, diarrhea, dyspepsia, fecal incontinence, nausea - Genitourinary Genitourinary: as per HPI - Musculoskeletal Musculoskeletal: Absent: arthralgias, back pain, muscle cramps - Integumentary Integumentary: Present: rash, skin ulcer. Absent: skin pain, sores - Neurological Neurological: Absent: headache(s), numbness - Psychiatric Psychiatric: Absent: anxiety, confusion - Endocrine Endocrine: Absent: polyphagia, polyuria - Hematologic/Lymphatic Hematologic/Lymphatic: Absent: easy bleeding, lymphadenopathy - Allergic/Immunologic Allergic/Immunologic: Absent: itchy eyes, uticaria Exam - Constitutional Vitals: Temp Pulse Resp BP Pulse Ox 98.8 F 86 18 159/75 94 05/13/18 14:05 05/13/18 14:05 05/13/18 14:05 05/13/18 14:05 05/13/18 14:05 Exam: HEAD: Normocephalic atraumatic EYES: PERRLA, EOMI, no conjunctival hemorrhage, sclera anicteric ENT: Mucous membranes moist, no oral thrush NECK: Supple. No meningeal signs. No masses LUNGS: Chest expanding symmetrically. Lungs sounds audible both lung negron. No wheezing, no rhonchi CV: RRR, S1S2, ABDOMEN: Soft, nontender, nondistended. Bowel sounds audible BACK: No CVA tenderness. Normal inspection. No tenderness over the spine EXTREMITY: Adequate perfusion. No joint effusion. SKIN: Normal color. has chronic rash/lesions on the scalp with no surrounding erythema/edema. no open sores. no fluctuance NEURO: Awake alert oriented 3. No obvious focal deficit PSYCH: Calm and appropriate. No agitation. Infectious Disease CN: Results - Labs CBC & Chem 7: 05/13/18 03:39 05/13/18 03:39 Cultures: Cultures 05/12/18 11:55 Blood Culture - Preliminary Peripheral Venipuncture Culture is incubating and being continuously monitored for growth. Final report to follow. 05/12/18 11:55 Blood Culture - Preliminary Peripheral Venipuncture Culture is incubating and being continuously monitored for growth. Final report to follow. Serology: Serology 05/13/18 05/12/18 Range/Units 15:12 12:14 Urine Color Yellow (Yellow) Urine Clarity Clear (Clear) Urine pH 7.5 (5.0-8.0) pH Units Ur Specific [place] 1.019 (1.010-1.025) Urine Protein 30 H (Neg-Trace) mg/dL Urine Glucose (UA) Normal (Normal) mg/dL Urine Ketones Negative (Negative) mg/dL Urine Blood Negative (Negative) Urine Nitrite Negative (Negative) Urine Bilirubin Negative (Negative) Urine Urobilinogen Normal (Normal) mg/dL Ur Leukocyte Esterase Negative (Negative) Urine Microscopic RBC 0-3 (0-3) per hpf Urine Microscopic WBC 0-3 (0-3) per hpf Ur Squamous Epith Cells Few (None-Few) per lpf Urine Bacteria None Seen (None-Few) per hpf Hyaline Casts None Seen (None-Few) per lpf Ur Culture Indicated? NO (NO) Chlamy pneumoniae PCR Not Detected (Not Detect) Adenovirus (PCR) Not Detected (Not Detect) B. pertussis DNA (PCR) Not Detected (Not Detect) B.parapertussis DNA PCR Not Detected (Not Detect) Coronavirus OC43 (PCR) Not Detected (Not Detect) Coronavirus HKU1 (PCR) Not Detected (Not Detect) Coronavirus 229E (PCR) Not Detected (Not Detect) Coronavirus NL63 (PCR) Not Detected (Not Detect) Human Metapneumovir PCR Not Detected (Not Detect) Influenza A (H1) PCR Not Detected (Not Detect) Influ A (H1N1/09) PCR Not Detected (Not Detect) Influenza A (H3) PCR Not Detected (Not Detect) Influenza A Untype (PCR) Not Detected (Not Detect) Influenza Type B (PCR) Not Detected (Not Detect) M.pneumoniae DNA (PCR) Not Detected (Not Detect) Parainfluenza 1 (PCR) Not Detected (Not Detect) Parainfluenza 2 (PCR) Not Detected (Not Detect) Parainfluenza 3 (PCR) Not Detected (Not Detect) Parainfluenza 4 (PCR) Not Detected (Not Detect) RSV (PCR) Not Detected (Not Detect) Entero/Rhino (PCR) Not Detected (Not Detect) Consult Discharge Plan - Plan Referrals: Keven Rice MD [Primary Care Provider] -
[2018-05-13] MEDS: Acetaminophen 325 MG TABLET PO PRN (20:28)
[2018-05-14] MEDS: *HR* Heparin 5,000 UNIT/ML VIAL SQ SCH ×3 (05:50→20:36)
[2018-05-14] MEDS: Insulin LISPRO 300 UNITS/3 ML VIAL SQ SCH ×4 (08:08→20:38)
[2018-05-14] MEDS: Lisinopril 20 MG TABLET PO SCH (08:08)
[2018-05-14] MEDS: Aspirin 81 MG TAB.CHEW PO SCH (08:08)
--- NOTE | 2018-05-14 08:47 | Infectious Disease Progress No ---
Date of Encounter: 05/15/18 Time of Encounter: 09:36 - Assessment and Plan (1) Generalized weakness Current Visit: Yes Status: Acute Weakness steadily improving per patient. Patient experienced bradycardia into the 40s morning of 05/14/2018, at home medica tions include lisinopril, metoprolol, and sildenafil and may contribute to dizziness/ generalized weakness Etiology: possibly cardiogenic, dehydration Recommendations: check TSH, EKG; monitor for acute worsening, follow up with PCP after discharge (2) Leukocytosis Current Visit: Yes Status: Acute Initial WBC of 18.3, decreased to 9.5 within hours of presentation to ED Etiology unknown; likely multifactorial D/C vancomycin and zosyn 05/13/2018, monitoring for acute worsening Recommendations: leukocytosis resolved, monitor for worsening clinical picture Qualifiers: Leukocytosis type: unspecified Qualified Code(s): D72.829 - Elevated white blood cell count, unspecified (3) Rhinorrhea Current Visit: Yes Status: Acute Rhinorrhea, sneezing and cough present for approx 1 week prior to presentation. Respiratory infectious panel negative. Etiology: likely multifactorial, including allergic, post-viral syndrome Recommendations: monitor for acute worsening (4) Scalp lesion Current Visit: Yes Status: Acute Multiple scalp lesions present throughout scalp. Lesions do not appear infected due to lack of erythema, pain, discharge Recommendations: monitor for worsening, follow up with dermatology after discharge - Subjective Interval history: No acute events over night. Patient states he is continuously regaining his strength, although he still feels somewhat weak. When I saw him this morning he was eating his breakfast. He admits to cough and rhinorrhea; denies fever, chest pain, dypsnea, abdominal pain, nausea, vomiting, dysuria, painful/ swollen joints. Infect Dis PN-Objective Data - Labs CBC & Chem 7: 05/15/18 08:18 05/15/18 08:18 Labs: Laboratory Results - last 24 hr 05/12/18 05/13/18 05/13/18 21:08 07:50 11:21 POC Glucose 138 H 115 H 186 H Chlamy pneumoniae PCR Adenovirus (PCR) B. pertussis DNA (PCR) B.parapertussis DNA PCR Coronavirus OC43 (PCR) Coronavirus HKU1 (PCR) Coronavirus 229E (PCR) Coronavirus NL63 (PCR) Human Metapneumovir PCR Influenza A (H1) PCR Influ A (H1N1/09) PCR Influenza A (H3) PCR Influenza A Untype (PCR) Influenza Type B (PCR) M.pneumoniae DNA (PCR) Parainfluenza 1 (PCR) Parainfluenza 2 (PCR) Parainfluenza 3 (PCR) Parainfluenza 4 (PCR) RSV (PCR) Entero/Rhino (PCR) 05/13/18 05/13/18 05/13/18 15:12 16:04 20:03 POC Glucose 173 H 170 H Chlamy pneumoniae PCR Not Detected Adenovirus (PCR) Not Detected B. pertussis DNA (PCR) Not Detected B.parapertussis DNA PCR Not Detected Coronavirus OC43 (PCR) Not Detected Coronavirus HKU1 (PCR) Not Detected Coronavirus 229E (PCR) Not Detected Coronavirus NL63 (PCR) Not Detected Human Metapneumovir PCR Not Detected Influenza A (H1) PCR Not Detected Influ A (H1N1/09) PCR Not Detected Influenza A (H3) PCR Not Detected Influenza A Untype (PCR) Not Detected Influenza Type B (PCR) Not Detected M.pneumoniae DNA (PCR) Not Detected Parainfluenza 1 (PCR) Not Detected Parainfluenza 2 (PCR) Not Detected Parainfluenza 3 (PCR) Not Detected Parainfluenza 4 (PCR) Not Detected RSV (PCR) Not Detected Entero/Rhino (PCR) Not Detected Cultures: Cultures 05/12/18 11:55 Blood Culture - Preliminary Peripheral Venipuncture Culture is incubating and being continuously monitored for growth. Final report to follow. 05/12/18 11:55 Blood Culture - Preliminary Peripheral Venipuncture Culture is incubating and being continuously monitored for growth. Final report to follow. Serology 05/13/18 05/12/18 Range/Units 15:12 12:14 Urine Color Yellow (Yellow) Urine Clarity Clear (Clear) Urine pH 7.5 (5.0-8.0) pH Units Ur Specific [place] 1.019 (1.010-1.025) Urine Protein 30 H (Neg-Trace) mg/dL Urine Glucose (UA) Normal (Normal) mg/dL Urine Ketones Negative (Negative) mg/dL Urine Blood Negative (Negative) Urine Nitrite Negative (Negative) Urine Bilirubin Negative (Negative) Urine Urobilinogen Normal (Normal) mg/dL Ur Leukocyte Esterase Negative (Negative) Urine Microscopic RBC 0-3 (0-3) per hpf Urine Microscopic WBC 0-3 (0-3) per hpf Ur Squamous Epith Cells Few (None-Few) per lpf Urine Bacteria None Seen (None-Few) per hpf Hyaline Casts None Seen (None-Few) per lpf Ur Culture Indicated? NO (NO) Chlamy pneumoniae PCR Not Detected (Not Detect) Adenovirus (PCR) Not Detected (Not Detect) B. pertussis DNA (PCR) Not Detected (Not Detect) B.parapertussis DNA PCR Not Detected (Not Detect) Coronavirus OC43 (PCR) Not Detected (Not Detect) Coronavirus HKU1 (PCR) Not Detected (Not Detect) Coronavirus 229E (PCR) Not Detected (Not Detect) Coronavirus NL63 (PCR) Not Detected (Not Detect) Human Metapneumovir PCR Not Detected (Not Detect) Influenza A (H1) PCR Not Detected (Not Detect) Influ A (H1N1/09) PCR Not Detected (Not Detect) Influenza A (H3) PCR Not Detected (Not Detect) Influenza A Untype (PCR) Not Detected (Not Detect) Influenza Type B (PCR) Not Detected (Not Detect) M.pneumoniae DNA (PCR) Not Detected (Not Detect) Parainfluenza 1 (PCR) Not Detected (Not Detect) Parainfluenza 2 (PCR) Not Detected (Not Detect) Parainfluenza 3 (PCR) Not Detected (Not Detect) Parainfluenza 4 (PCR) Not Detected (Not Detect) RSV (PCR) Not Detected (Not Detect) Entero/Rhino (PCR) Not Detected (Not Detect) - Impressions Impressions Chest X-Ray 05/13/18 14:49 IMPRESSION: No acute process. D/ / Ritchie Mcdowell MD / Ritchie Mcdowell MD Interpreting Provider: Ritchie Mcdowell MD Exam - Constitutional Vitals: Temp Pulse Resp BP Pulse Ox 98.1 F 46 16 143/68 96 05/14/18 06:45 05/14/18 06:45 05/14/18 06:45 05/14/18 06:45 05/14/18 06:45 General appearance: no acute distress, no febrile - Head Head exam: Present: atraumatic Additional comments: Multiple lesions present on scalp without pain, erythema, draining, bleeding - Respiratory Respiratory exam: Present: CTAB. Absent: rhonchi, wheezes - Cardiovascular Cardiovascular exam: Present: RRR, +S1, +S2 - Psychiatric Psychiatric exam: Present: normal affect, normal mood Consult Discharge Plan - Plan Referrals: Keven Rice MD [Primary Care Provider] - - Attending Attestation I examined this patient and my medical decision-making was reviewed with the Resident Physician. I agree with the documented findings, disposition and treatment plan as described except to the extent set forth below. Patient seen and examined appears comfortable no acute distress review of system is unremarkable. Patient continues to have no fevers no chills no leukocytosis. I did notice that the patient was bradycardic. I did speak with the nursing staff and asked her to call the hospitalist and let them know. May be all of the patient's symptoms are related to his symptomatic bradycardia? Patient is not currently on telemetry. Nursing stated that they will call the hospitalist and go from there. Assessment and plan: Leukocytosis Rhinorrhea Scalp lesion Generalized weakness Dizziness Recommendations I do not believe that there is an infectious etiology at this point. We will sign off. Feel free to call us with any more questions.
--- NOTE | 2018-05-14 09:31 | Internal Med Progress Note ---
Hospitalist Progress Note - Encounter Date of Encounter: 05/14/18 Time of Encounter: 11:00 - Subjective Interval History: PT/OT has evaluated patient with recommendations for fdc facility for strengthening conditioning. - Exam Vitals: Temp Pulse Resp BP Pulse Ox 98.1 F 46 16 143/68 96 05/14/18 06:45 05/14/18 06:45 05/14/18 06:45 05/14/18 06:45 05/14/18 06:45 Exam: Gen.: Nonacute distress, alert and oriented 3 ENT: Mucosal membranes moist Respiratory: Lungs are clear to auscultation bilaterally without any wheezing rhonchi or rales Cardiovascular: Normal S1 and S2 regular rate rhythm no murmurs rubs or gallops Abdomen: Soft, nontender and nondistended with positive bowel sounds Extremities: No lower extremity edema Skin: Normal color - Assessment and Plan (1) Generalized weakness Current Visit: Yes Status: Acute Assessment and Plan: Patient presents with one-day history of generalized weakness as he states that he is unable to ambulate with cane. PT/OT has evaluated patient with recommendations for fdc facility for strengthening conditioning. (2) Leukocytosis Current Visit: Yes Status: Acute Assessment and Plan: In the ER patient afebrile but found to have leukocytosis with white blood cell count of 18.3. Patient's leukocytosis has resolved yesterday Chest x-ray showed no evidence for acute cardiopulmonary process. Urinalysis with no evidence for UTI. Blood cultures were taken and are pending Infectious disease disease following with recommendations to discontinue IV antibiotics and monitor for fevers/leukocytosis (3) CAD (coronary artery disease) Current Visit: No Status: Chronic Assessment and Plan: Continue home medications (4) Hypertension Current Visit: No Status: Chronic Assessment and Plan: Continue home medications DVT Prophylaxis: Heparin subcutaneous - Time Spent with Patient Total time spent is greater than 50% in coordination of care (as documented) at patient's floor/unit and/or counseling patient: Internal Medicine: Result - Labs CBC & Chem 7: 05/14/18 12:07 05/14/18 12:07 - Impressions Impressions Chest X-Ray 05/13/18 14:49 IMPRESSION: No acute process. D/ / Ritchie Mcdowell MD / Ritchie Mcdowell MD Interpreting Provider: Ritchie Mcdowell MD Consult Discharge Plan - Plan Referrals: Keven Rice MD [Primary Care Provider] - (2) Leukocytosis Qualifiers: Leukocytosis type: unspecified Qualified Code(s): D72.829 - Elevated white blood cell count, unspecified (3) CAD (coronary artery disease) Qualifiers: Coronary Disease-Associated Artery/Lesion type: [place] artery [place] vs. transplanted heart: [place] heart Associated angina: without angina Qualified Code(s): I25.10 - Atherosclerotic heart disease of [place] coronary artery without angina pectoris (4) Hypertension Qualifiers: Hypertension type: essential hypertension Qualified Code(s): I10 - Essential (primary) hypertension
[2018-05-14 12:35] LABS: Basophils % 0.4 %; Eosinophils # 0.1 K/mcL (0.0-0.6); Eosinophils % 1.5 %; Hematocrit 40.6 % (37.5-50.1); Immature Granulocytes % 0.4 % (0-4); Lymphocytes # 1.2 K/mcL (0.6-4.6); Lymphocytes % 15.8 %; Mean Corpuscular HGB Conc 32.3 g/dL (31.6-35.5); Mean Corpuscular Hemoglobin 28.4 pg (28.0-33.3); Mean Corpuscular Volume 87.9 fL (83.0-100.0); Mean Platelet Volume 9.7 fL (9.4-12.4); Monocytes # 0.7 K/mcL (0.0-1.3); Neutrophils # 5.4 K/mcL (1.6-8.9); Platelet Count 270 K/mcL (140-400); Red Blood Count 4.62 M/mcL (4.19-5.50); Red Cell Distribution Width 13.7 % (11.5-14.5); Segmented Neutrophils % 72.9 %
[2018-05-14 12:59] LABS: BUN/Creatinine Ratio 17 (6-26); Blood Urea Nitrogen 15 mg/dL (8-23); Calcium 9.4 mg/dL (8.6-10.3); Carbon Dioxide 28 mEq/L (23-29); Chloride 99 mEq/L (98-107); Glucose 213 mg/dL (70-105); Osmolality,Calculated 287 (280-300); Potassium 4.2 mEq/L (3.5-5.1); Sodium 135 mEq/L (136-145); eGFR For Non-African Americans > 60 (> 60)
[2018-05-14 13:20] LABS: Hemoglobin 13.1 g/dL (12.9-16.9)
[2018-05-14] MEDS: Acetaminophen 325 MG TABLET PO PRN (15:17)
[2018-05-15] MEDS: *HR* Heparin 5,000 UNIT/ML VIAL SQ SCH ×2 (05:51→14:14)
[2018-05-15] MEDS: Aspirin 81 MG TAB.CHEW PO SCH (08:52)
[2018-05-15] MEDS: Insulin LISPRO 300 UNITS/3 ML VIAL SQ SCH ×3 (08:52→18:12)
[2018-05-15] MEDS: Lisinopril 20 MG TABLET PO SCH (08:52)
[2018-05-15 09:01] LABS: Basophils % 0.3 %; Eosinophils # 0.2 K/mcL (0.0-0.6); Eosinophils % 2.8 %; Hematocrit 37.7 % (37.5-50.1); Hemoglobin 12.4 g/dL (12.9-16.9); Immature Granulocytes % 0.1 % (0-4); Lymphocytes # 1.5 K/mcL (0.6-4.6); Lymphocytes % 21.8 %; Mean Corpuscular HGB Conc 32.9 g/dL (31.6-35.5); Mean Corpuscular Hemoglobin 28.3 pg (28.0-33.3); Mean Corpuscular Volume 86.1 fL (83.0-100.0); Mean Platelet Volume 9.7 fL (9.4-12.4); Monocytes # 0.6 K/mcL (0.0-1.3); Monocytes % 9.4 %; Neutrophils # 4.5 K/mcL (1.6-8.9); Platelet Count 264 K/mcL (140-400); Red Blood Count 4.38 M/mcL (4.19-5.50); Red Cell Distribution Width 13.4 % (11.5-14.5); Segmented Neutrophils % 65.6 %
[2018-05-15 09:08] LABS: BUN/Creatinine Ratio 20 (6-26); Blood Urea Nitrogen 17 mg/dL (8-23); Calcium 9.3 mg/dL (8.6-10.3); Carbon Dioxide 30 mEq/L (23-29); Chloride 98 mEq/L (98-107); Glucose 184 mg/dL (70-105); Osmolality,Calculated 286 (280-300); Potassium 4.1 mEq/L (3.5-5.1); Sodium 135 mEq/L (136-145); eGFR For Non-African Americans > 60 (> 60)
--- NOTE | 2018-05-15 11:01 | Infectious Disease Progress No ---
Date of Encounter: 05/15/18 Time of Encounter: 09:30 - Assessment and Plan (1) Leukocytosis Current Visit: Yes Status: Acute Initial WBC of 18.3, decreased to 9.5 within hours of presentation to ED. Etiology unknown; likely multifactorial. Resolved. Blood cultures drawn 05/12/18 are NGTD x 2 sets. Recommendations: Repeat CBC, BMP. Check ESR, CRP, and procalcitonin. Continue to observe off antibiotics. PT/OT for weakness. Wound care per the primary team. No further recommendations from the ID team. We will sign off. Please re-consult if needed. Qualifiers: Leukocytosis type: unspecified Qualified Code(s): D72.829 - Elevated white blood cell count, unspecified (2) Generalized weakness Current Visit: Yes Status: Acute Weakness steadily improving per patient. Patient experienced bradycardia into the 40s morning of 05/14/2018, at home medications include lisinopril, metoprolol, and sildenafil and may contribute to dizziness/ generalized weakness. Etiology: possibly cardiogenic, dehydration Improved. Recommend PT/OT. (3) Rhinorrhea Current Visit: Yes Status: Acute Rhinorrhea, sneezing and cough present for approx 1 week prior to presentation. Respiratory infectious panel negative. Etiology: likely multifactorial, including allergic, post-viral syndrome Resolved. (4) Scalp lesion Current Visit: Yes Status: Acute Multiple scalp lesions present throughout scalp. Lesions do not appear infected due to lack of erythema, pain, discharge. Supportive care/wound care per the primary team. - Subjective Interval history: Patient seen and examined. No acute events noted overnight. Patient states he feels better, but still is feeling a little weak. Complains of chronic pain to the right knee. Denies any fevers or chills or rigors. Denies chest pain, shortness of breath, or cough. Denies nausea, vomiting, diarrhea, or constip ation. Denies abdominal pain or urinary complaints. Last bowel movement was this morning. Denies any oral thrush or new skin lesions. States the scabbed lesions to his scalp are improved and are not painful. Infect Dis PN-Objective Data - Labs CBC & Chem 7: 05/15/18 08:18 05/15/18 08:18 Labs: Laboratory Results - last 24 hr 05/14/18 05/14/18 05/14/18 06:52 12:07 12:07 WBC 7.3 RBC 4.62 Hgb 13.1 D Hct 40.6 MCV 87.9 MCH 28.4 MCHC 32.3 RDW 13.7 Plt Count 270 MPV 9.7 Immature Gran % 0.4 Seg Neutrophils % 72.9 Lymphocytes % 15.8 Monocytes % 9.0 Eosinophils % 1.5 Basophils % 0.4 Neutrophils # 5.4 Lymphocytes # 1.2 Monocytes # 0.7 Eosinophils # 0.1 Basophils # 0.0 ESR Sodium 135 L Potassium 4.2 Chloride 99 Carbon Dioxide 28 BUN 15 Creatinine 0.90 Est GFR ( Amer) > 60 Est GFR (Non-Af Amer) > 60 BUN/Creatinine Ratio 17 Glucose 213 H POC Glucose 147 H Calculated Osmolality 287 Calcium 9.4 05/14/18 05/14/18 05/15/18 18:00 19:24 07:50 WBC RBC Hgb Hct MCV MCH MCHC RDW Plt Count MPV Immature Gran % Seg Neutrophils % Lymphocytes % Monocytes % Eosinophils % Basophils % Neutrophils # Lymphocytes # Monocytes # Eosinophils # Basophils # ESR Sodium Potassium Chloride Carbon Dioxide BUN Creatinine Est GFR ( Amer) Est GFR (Non-Af Amer) BUN/Creatinine Ratio Glucose POC Glucose 139 H 217 H 161 H Calculated Osmolality Calcium 05/15/18 05/15/18 05/15/18 08:18 08:18 08:18 WBC 6.8 RBC 4.38 Hgb 12.4 L Hct 37.7 MCV 86.1 MCH 28.3 MCHC 32.9 RDW 13.4 Plt Count 264 MPV 9.7 Immature Gran % 0.1 Seg Neutrophils % 65.6 Lymphocytes % 21.8 Monocytes % 9.4 Eosinophils % 2.8 Basophils % 0.3 Neutrophils # 4.5 Lymphocytes # 1.5 Monocytes # 0.6 Eosinophils # 0.2 Basophils # 0.0 ESR 63 H Sodium 135 L Potassium 4.1 Chloride 98 Carbon Dioxide 30 H BUN 17 Creatinine 0.86 Est GFR ( Amer) > 60 Est GFR (Non-Af Amer) > 60 BUN/Creatinine Ratio 20 Glucose 184 H POC Glucose Calculated Osmolality 286 Calcium 9.3 Cultures: Cultures 05/12/18 11:55 Blood Culture - Preliminary Peripheral Venipuncture Culture is incubating and being continuously monitored for growth. Final report to follow. 05/12/18 11:55 Blood Culture - Preliminary Peripheral Venipuncture Culture is incubating and being continuously monitored for growth. Final report to follow. Serology 05/13/18 05/12/18 Range/Units 15:12 12:14 Urine Color Yellow (Yellow) Urine Clarity Clear (Clear) Urine pH 7.5 (5.0-8.0) pH Units Ur Specific [place] 1.019 (1.010-1.025) Urine Protein 30 H (Neg-Trace) mg/dL Urine Glucose (UA) Normal (Normal) mg/dL Urine Ketones Negative (Negative) mg/dL Urine Blood Negative (Negative) Urine Nitrite Negative (Negative) Urine Bilirubin Negative (Negative) Urine Urobilinogen Normal (Normal) mg/dL Ur Leukocyte Esterase Negative (Negative) Urine Microscopic RBC 0-3 (0-3) per hpf Urine Microscopic WBC 0-3 (0-3) per hpf Ur Squamous Epith Cells Few (None-Few) per lpf Urine Bacteria None Seen (None-Few) per hpf Hyaline Casts None Seen (None-Few) per lpf Ur Culture Indicated? NO (NO) Chlamy pneumoniae PCR Not Detected (Not Detect) Adenovirus (PCR) Not Detected (Not Detect) B. pertussis DNA (PCR) Not Detected (Not Detect) B.parapertussis DNA PCR Not Detected (Not Detect) Coronavirus OC43 (PCR) Not Detected (Not Detect) Coronavirus HKU1 (PCR) Not Detected (Not Detect) Coronavirus 229E (PCR) Not Detected (Not Detect) Coronavirus NL63 (PCR) Not Detected (Not Detect) Human Metapneumovir PCR Not Detected (Not Detect) Influenza A (H1) PCR Not Detected (Not Detect) Influ A (H1N1/09) PCR Not Detected (Not Detect) Influenza A (H3) PCR Not Detected (Not Detect) Influenza A Untype (PCR) Not Detected (Not Detect) Influenza Type B (PCR) Not Detected (Not Detect) M.pneumoniae DNA (PCR) Not Detected (Not Detect) Parainfluenza 1 (PCR) Not Detected (Not Detect) Parainfluenza 2 (PCR) Not Detected (Not Detect) Parainfluenza 3 (PCR) Not Detected (Not Detect) Parainfluenza 4 (PCR) Not Detected (Not Detect) RSV (PCR) Not Detected (Not Detect) Entero/Rhino (PCR) Not Detected (Not Detect) Exam - Constitutional Vitals: Temp Pulse Resp BP Pulse Ox 98.1 F 94 13 119/65 95 05/15/18 10:11 05/15/18 10:11 05/15/18 10:11 05/15/18 10:11 05/15/18 10:11 General appearance: average body habitus, cooperative, no acute distress - Head Head exam: Present: atraumatic, normocephalic. Absent: normal inspection (Multiple scabbed lesions noted to the scalp in various stages of healing. No surrounding erythema or drainage noted. Nontender.) - Eye Eye exam: Present: EOMI, normal appearance, PERRL Pupils: Present: normal accommodation - Neck Neck exam: Present: normal inspection - Respiratory Respiratory exam: Present: CTAB. Absent: rales, respiratory distress, rhonchi, wheezes - Cardiovascular Cardiovascular exam: Present: RRR, +S1, +S2 - GI/Abdominal GI/Abdominal exam: Present: normal bowel sounds, soft. Absent: distended, tenderness - Extremities Exam Extremities exam: Present: normal inspection. Absent: joint swelling, pedal edema, tenderness - Neurological Exam Neurological exam: Present: alert, oriented X3, no focal deficits - Psychiatric Psychiatric exam: Present: normal affect, normal mood - Skin Skin exam: Present: dry, intact, normal color, warm Consult Discharge Plan - Plan Referrals: Keven Rice MD [Primary Care Provider] -
[2018-05-15 11:30] LABS: C-Reactive Protein 45 mg/L (Less than 10)
[2018-05-15 14:26] VITALS: BP 107/61
--- NOTE | 2018-05-15 18:07 | Internal Med Progress Note ---
Hospitalist Progress Note - Encounter Date of Encounter: 05/15/18 Time of Encounter: 18:04 - Subjective Interval History: Pt denies chest pain or SOB. She denies N/V or diarrhea. She denies constipation. - Exam Vitals: Temp Pulse Resp BP Pulse Ox 98.0 F 87 14 107/61 93 05/15/18 14:21 05/15/18 14:21 05/15/18 14:21 05/15/18 14:21 05/15/18 14:21 Exam: Gen.: Non-acute distress, alert and oriented 3 ENT: Mucosal membranes moist Respiratory: Lungs are clear to auscultation bilaterally without any wheezing rhonchi or rales Cardiovascular: Normal S1 and S2 regular rate rhythm no murmurs rubs or gallops Abdomen: Soft, non-tender and non-distended with positive bowel sounds Extremities: No lower extremity edema Skin: Normal color - Assessment and Plan (1) Leukocytosis Current Visit: Yes Status: Acute Assessment and Plan: In the ER patient afebrile but found to have leukocytosis with white blood cell count of 18.3. Chest x-ray showed no evidence for acute cardiopulmonary process. Urinalysis with no evidence for UTI. Blood cultures are pending Infectious disease disease following with recommendations to discontinue IV antibiotics and monitor for fevers/leukocytosis. Patient's leukocytosis has resolved (2) Hypertension Current Visit: No Status: Chronic Assessment and Plan: Lisinopril (3) CAD (coronary artery disease) Current Visit: No Status: Chronic Assessment and Plan: ASA and Zocor (4) Generalized weakness Current Visit: Yes Status: Acute Assessment and Plan: Patient presents with one-day history of generalized weakness as he states that he is unable to ambulate with cane. PT/OT has evaluated patient with recommendations for [facility] facility for strengthening conditioning. DVT Prophylaxis: Heparin subcutaneous - Time Spent with Patient Total time spent is greater than 50% in coordination of care (as documented) at patient's floor/unit and/or counseling patient: less than 15 minutes Plan of Care Discussed with: patient Internal Medicine: Result - Labs CBC & Chem 7: 05/15/18 08:18 05/15/18 08:18 Labs: Short CBC 05/15/18 Range/Units 08:18 WBC 6.8 (4.3-11.1) K/mcL Hgb 12.4 L (12.9-16.9) g/dL Hct 37.7 (37.5-50.1) % Plt Count 264 (140-400) K/mcL Neutrophils # 4.5 (1.6-8.9) K/mcL BMP 05/15/18 08:18 Sodium 135 L Potassium 4.1 Chloride 98 Carbon Dioxide 30 H BUN 17 Creatinine 0.86 Glucose 184 H Calcium 9.3 Consult Discharge Plan - Plan Referrals: Keven Rice MD [Primary Care Provider] - (1) Leukocytosis Qualifiers: Leukocytosis type: unspecified Qualified Code(s): D72.829 - Elevated white blood cell count, unspecified (2) Hypertension Qualifiers: Hypertension type: essential hypertension Qualified Code(s): I10 - Essential (primary) hypertension (3) CAD (coronary artery disease) Qualifiers: Coronary Disease-Associated Artery/Lesion type: [place] artery [place] vs. transplanted heart: [place] heart Associated angina: without angina Qualified Code(s): I25.10 - Atherosclerotic heart disease of [place] coronary artery without angina pectoris
--- NOTE | 2018-05-15 18:15 | Discharge Summary ---
- NOTES TO OUTPATIENT PROVIDER Notes to Outpatient Provider: PCP in 5 to 7 days Orders not resulted at time of discharge: Pending orders 05/12/18 11:55 Culture,Blood [BC] Stat 05/15/18 08:18 Procalcitonin Routine Date of Encounter: 05/15/18 Time of Encounter: 18:12 - Discharge Diagnosis (1) Leukocytosis Priority: Primary Status: Acute Assessment and Plan: In the ER patient afebrile but found to have leukocytosis with white blood cell count of 18.3. Chest x-ray showed no evidence for acute cardiopulmonary process. Urinalysis with no evidence for UTI. Blood cultures are pending Infectious disease disease following with recommendations to discontinue IV antibiotics and monitor for fevers/leukocytosis. Patient's leukocytosis has resolved Qualifiers: Leukocytosis type: unspecified Qualified Code(s): D72.829 - Elevated white blood cell count, unspecified (2) Hypertension Priority: Secondary Status: Chronic Assessment and Plan: Lisinopril Qualifiers: Hypertension type: essential hypertension Qualified Code(s): I10 - Essential (primary) hypertension (3) CAD (coronary artery disease) Priority: Secondary Status: Chronic Assessment and Plan: ASA and Zocor Qualifiers: Coronary Disease-Associated Artery/Lesion type: [place] artery [place] vs. transplanted heart: [place] heart Associated angina: without angina Qualified Code(s): I25.10 - Atherosclerotic heart disease of [place] coronary artery without angina pectoris (4) Generalized weakness Priority: Secondary Status: Acute Assessment and Plan: Patient presents with one-day history of generalized weakness as he states that he is unable to ambulate with cane. PT/OT has evaluated patient with recommendations for [facility] facility for strengthening conditioning. 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 Patient reports this morning that he was too weak to ambulate and had some dizziness therefore significant other brought him into the ER for further evaluation. In the ER patient afebrile but found to have leukocytosis with white blood cell count of 18.3. Chest x-ray showed no evidence for acute cardiopulmonary process. Urinalysis with no evidence for UTI. Blood cultures were taken and are pending Due to patients prior history of positive scalp cultures positive for MRSA, Klebsiella, Serratia, and strep will continue prophylactic dose of IV vancomycin and IV Zosyn started in the ER. Will also consult infectious disease for further recommendations. Discharge discussed with: patient - Time Spent with Patient Total time spent providing and/or coordinating discharge services: Time spent: Greater than 30 minutes - Discharge Medications Prescriptions: No Action Triamterene/Hydrochlorothiazid [Dyazide 37.5-25 Capsule] 1 mg PO DAILY Metoprolol Succinate [Toprol Xl] 50 mg PO DAILY Metformin HCl [Glucophage] 1,000 mg PO BIDWM Lisinopril [Zestril] 40 mg PO DAILY Glimepiride [Amaryl] 1 mg PO BID Simvastatin [Zocor] 20 mg PO HS Sildenafil Citrate [Revatio] 20 - 100 mg PO DAILY PRN PRN Reason: COITUS Aspirin 81 mg PO DAILY Clobetasol Propionate 0.05% [Temovate 0.05%] 1 appl TP AD Home Medications: Glimepiride [Amaryl] 1 mg PO BID 08/12/17 [History] Lisinopril [Zestril] 40 mg PO DAILY 08/12/17 [History] Metformin HCl [Glucophage] 1,000 mg PO BIDWM 08/12/17 [History] Metoprolol Succinate [Toprol Xl] 50 mg PO DAILY 08/12/17 [History] Sildenafil Citrate [Revatio] 20 - 100 mg PO DAILY PRN 08/12/17 [History] Simvastatin [Zocor] 20 mg PO HS 08/12/17 [History] Triamterene/Hydrochlorothiazid [Dyazide 37.5-25 Capsule] 1 mg PO DAILY 08/12/17 [History] Aspirin 81 mg PO DAILY 05/12/18 [History] Clobetasol Propionate 0.05% [Temovate 0.05%] 1 appl TP AD 05/13/18 [History] Allergies/Adverse Reactions: Allergy/AdvReac Type Severity Reaction Status Date / Time No Known Allergies Allergy Verified 11/30/17 16:44 Date of admission: 05/12/18 18:02 Primary care physician: Keven Rice MD Consults: 05/12/18 18:06 Consult to Occupational Therapy [CONS] Routine Comment: Evaluate, develop and implement POC Reason for Consult: Home safety Does patient have active BEDREST order?: No Is patient medically & hemodynamically stable?: Yes Patient assessed for mobility or mobilized this visit?: No Consult to Physical Therapy [CONS] Routine Comment: Evaluate, develop and implement POC Reason for Consult: Home safety Does patient have active BEDREST order?: No Is patient medically & hemodynamically stable?: Yes Patient assessed for mobility or mobilized this visit?: No 05/12/18 18:08 Consult to Infectious Diseases [CONS] Routine Consulting Provider: Infectious Disease Ana Laura Reason for Consult: Skin/scalp infection history Call Completed: No Discharging clinician: Liana Norris Anticipated date of discharge: 05/15/18 - Constitutional Vitals: Temp Pulse Resp BP Pulse Ox 98.0 F 87 14 107/61 93 05/15/18 14:21 05/15/18 14:21 05/15/18 14:21 05/15/18 14:21 05/15/18 14:21 General appearance: Present: A&O X 3, no acute distress Exam: Gen.: Non-acute distress, alert and oriented 3 ENT: Mucosal membranes moist Respiratory: Lungs are clear to auscultation bilaterally without any wheezing rhonchi or rales Cardiovascular: Normal S1 and S2 regular rate rhythm no murmurs rubs or gallops Abdomen: Soft, non-tender and non-distended with positive bowel sounds Extremities: No lower extremity edema Skin: Normal color - Patient Status Disposition: Home Health Service Condition: Good Overall status at discharge: patient is back to baseline - Discharge Instructions Follow Up With: Keven Rice MD [Primary Care Provider] - - Diet and Activity Activity: increase activity as tolerated Diet: low fat, low cholesterol, low salt diet
--- NOTE | 2018-05-15 18:20 | Physician Discharge Referral ---
Home Health/Hosp Referral Info Transfer to: Home Health Provider in Charge Post Discharge: PCP - Diagnosis (1) Leukocytosis Priority: Primary Status: Acute (2) Hypertension Priority: Secondary Status: Chronic (3) CAD (coronary artery disease) Priority: Secondary Status: Chronic (4) Generalized weakness Priority: Secondary Status: Acute - Respiratory Orders Oxygen / L per min Smoking Cessation: Smoking cessation has been advised. For more information, call the [place] Tobacco Quit Line at 1-974-OAMU-NOW. - Diet/Nutrition Diet/Nutrition Orders: Cardiac - Services Needed Following services are medically necessary services: Nursing, Home Health Aide, Physical Therapy, Occupational Therapy - Transfer Medications Home Medications: Glimepiride [Amaryl] 1 mg PO BID 08/12/17 [History] Lisinopril [Zestril] 40 mg PO DAILY 08/12/17 [History] Metformin HCl [Glucophage] 1,000 mg PO BIDWM 08/12/17 [History] Metoprolol Succinate [Toprol Xl] 50 mg PO DAILY 08/12/17 [History] Sildenafil Citrate [Revatio] 20 - 100 mg PO DAILY PRN 08/12/17 [History] Simvastatin [Zocor] 20 mg PO HS 08/12/17 [History] Triamterene/Hydrochlorothiazid [Dyazide 37.5-25 Capsule] 1 mg PO DAILY 08/12/17 [History] Aspirin 81 mg PO DAILY 05/12/18 [History] Clobetasol Propionate 0.05% [Temovate 0.05%] 1 appl TP AD 05/13/18 [History] Allergies/Adverse Reactions: Allergy/AdvReac Type Severity Reaction Status Date / Time No Known Allergies Allergy Verified 11/30/17 16:44 Certification: Further, I certify that my clinical findings support that this patient is homebound (i.e. absences from home require considerable and taxing effort and are for medical reasons or adventism services or infrequently or short duration when for other reasons) because: Homebound Reason: Patient requires assistance of a person or device to safely leave home Attestation: My signature below is to certify that this patient is under my care and that I, or nurse practitioner, or a physician's assistant prosecuting attorney working with me, has a [id number] encounter with this patient.
== END 2018-05-15 18:52 | disposition home health service (06) | DRG 816 ==
LOC: EMEROOARM 10:53 → 3ANU 10:53 → SUATTDRO 18:02
PROVIDERS: ADMIT Internal Medicine Nephrology; ATTEND Hospitalist

== ENCOUNTER 2018-10-28 19:28 | Inpatient (IN) ==
--- NOTE | 2018-10-28 20:04 | Emergency Department Note ---
Disposition Clinical Impression: Syncope, Near syncope, Weakness Falls Qualifiers: Encounter type: initial encounter Qualified Code(s): W19.XXXA - Unspecified fall, initial encounter Disposition: Admitted As Inpatient Condition: Fair Time of Disposition: 22:47 General Adult HPI - General Chief complaint: ED Fall Stated complaint: fall Time Seen by Provider: 10/28/18 19:36 Source: patient Mode of arrival: EMS Limitations: no limitations Nursing Notes Reviewed: Yes Vital Signs Reviewed: Yes - History of Present Illness HPI Narrative: Patient is a 87-year-old male history of hypertension, diabetes, cardiac stents presenting the emergency department for the chief complaint of fall. Patient reports that he was standing near his window and got dizzy even lost his balance and fell into the window and blinds and slid to the ground striking his head and elbow. Patient reports he did not lose consciousness, no chest pain, no shortness of breath, no abdominal pain. Patient states he is been feeling weak the past 4 days with decreased oral intake and fatigue. Patient was unable to get himself off the ground by himself or with the assistance of his partner. Patient's partner then called EMS to assist. Pain Scale: 0 - Related Data Home Medications Medication Instructions Recorded Confirmed Glimepiride [Amaryl] 1 mg PO BID 08/12/17 10/28/18 Lisinopril [Zestril] 40 mg PO DAILY 08/12/17 10/28/18 Metformin HCl [Glucophage] 1,000 mg PO BIDWM 08/12/17 10/28/18 Metoprolol Succinate [Toprol Xl] 50 mg PO DAILY 08/12/17 10/28/18 Sildenafil Citrate [Revatio] 20 - 100 mg PO DAILY PRN 08/12/17 10/28/18 Simvastatin [Zocor] 20 mg PO HS 08/12/17 10/28/18 Triamterene/Hydrochlorothiazid 25 mg PO DAILY 08/12/17 10/28/18 [Dyazide 37.5-25 Capsule] Aspirin 81 mg PO DAILY 05/12/18 10/28/18 Doxycycline 1 each PO BID 10/28/18 10/28/18 Sulfamethoxazole/Trimeth DS 1 each PO BID 10/28/18 10/28/18 [Bactrim Ds] Allergies Allergy/AdvReac Type Severity Reaction Status Date / Time No Known Allergies Allergy Verified 11/30/17 16:44 All systems ED: reviewed and negative except as stated. Review of Systems: As Per HPI Constitutional: Reports: weakness. Denies: fever, chills Eyes: Denies: eye pain, eye discharge ENT ED: Denies: ear pain, throat pain Cardiovascular: Denies: chest pain, palpitations Respiratory: Denies: cough, dyspnea Gastrointestinal: Denies: abdominal pain, nausea Genitourinary: Denies: urgency, dysuria Musculoskeletal: Denies: back pain, neck pain Integumentary: Denies: rash, abrasion Neurological: Denies: headache, weakness Psychiatric: Denies: anxiety, depression Endocrine: Denies: fatigue, heat or cold intolerance Hematological/Lymphatic: Denies: easy bleeding, easy bruising Allergic/Immunologic: Denies: facial swelling, urticaria Past Medical History - Past Medical History Attestation: Yes The following information was validated with the patient. Medical history: Reports: cancer, diabetes, hyperlipidemia, hypertension Surgical history: Reports: angioplasty/stent Psychiatric history: Reports: anxiety - Social History Smoking Status: Former smoker Smokeless Tobacco Status: No Alcohol use: Reports: rarely Drug use: Reports: none Physical Exam - General Limitations: no limitations General appearance: alert, in no apparent distress - Head Head exam: other (Multiple skin lesions on head and various stages of healing. Recent dermatological procedure. Dried blood around the mouth coming out of left naris. Bruising on the left.) - Eye Eye exam: Present: normal appearance, PERRL, EOMI. Absent: scleral icterus, conjunctival injection - ENT ENT exam: normal exam, normal oropharynx, mucous membranes moist - Neck Neck exam: Present: normal inspection, full ROM - Chest Chest inspection: Present: normal inspection, symmetric chest wall rise. Absent: tenderness - Respiratory Respiratory exam: Present: normal lung sounds bilaterally. Absent: respiratory distress, wheezes - Cardiovascular Cardiovascular exam: Present: regular rate, normal rhythm, normal heart sounds. Absent: rubs - Abdominal Exam Abdominal exam: Present: soft, Non-Tender. Absent: tenderness, distention, guarding - Extremities Exam Extremities exam: Present: normal inspection, full ROM - Expanded Upper Extremity Exam Elbow exam: Present: full ROM, tenderness (Bilateral), abrasion, other (Left elbow skin tears). Absent: swelling, deformity, crepitus Forearm/Wrist exam: Present: other (Left wrist skin tears) Hand exam: Present: tenderness, abrasion, other (Skin tear on the lateral aspect of left wrist) - Back Exam Back exam: Present: normal inspection. Absent: tenderness - Neurological Exam Neurological exam: Present: alert, oriented X3 - Psychiatric Psychiatric exam: Present: normal affect, normal mood - Skin Skin exam: Present: warm, dry Course Vital Signs Temperature 98.9 F 10/28/18 19:30 Pulse Rate 79 10/28/18 19:30 Respiratory Rate 16 10/28/18 19:30 Blood Pressure 118/53 10/28/18 19:30 O2 Sat by Pulse Oximetry 97 10/28/18 19:30 Temperature 98.9 F 10/28/18 19:30 Pulse Rate 73 10/28/18 22:49 Respiratory Rate 16 10/28/18 22:49 Blood Pressure 117/58 10/28/18 22:49 O2 Sat by Pulse Oximetry 92 10/28/18 22:49 Oxygen Delivery Oxygen Delivery Room Air Medical Decision Making - [facility] Narrative Medical decision making narrative: The patient is a 7-year-old male significant cardiac history presenting the emergency department after a near syncopal fall. Patient has had increased near syncopal falls recently. Patient was unable to get himself up off the floor with help from his partner. Concerns for arrhythmia, head injury with this fall, or other intracranial cause. Patient evaluated with basic labs as well as a CT of the head and neck and maxillofacial. Patient was unable to get off the floor after the fall. Feel patient is unsafe to go home with increasing falls and near syncope. Spoke with hospitalist who agreed to admit the patient. - Medical Records Medical records reviewed: Yes I reviewed the patient's medical records. - Lab Data Lab results reviewed: Yes I reviewed the patient's lab results. Result diagrams: 10/28/18 20:30 10/28/18 20:30 Lab Results 10/28/18 10/28/18 10/28/18 Range/Units 20:30 20:30 20:34 WBC 10.4 (4.3-11.1) K/mcL RBC 3.88 L (4.19-5.50) M/mcL Hgb 11.3 L (12.9-16.9) g/dL Hct 34.6 L (37.5-50.1) % MCV 89.2 (83.0-100.0) fL MCH 29.1 (28.0-33.3) pg MCHC 32.7 (31.6-35.5) g/dL RDW 14.3 (11.5-14.5) % Plt Count 242 (140-400) K/mcL MPV 9.5 (9.4-12.4) fL Immature Gran % 0.4 (0-4) % Seg Neutrophils % 88.9 % Lymphocytes % 3.4 % Monocytes % 5.8 % Eosinophils % 1.3 % Basophils % 0.2 % Neutrophils # 9.3 H (1.6-8.9) K/mcL Lymphocytes # 0.4 L (0.6-4.6) K/mcL Monocytes # 0.6 (0.0-1.3) K/mcL Eosinophils # 0.1 (0.0-0.6) K/mcL Basophils # 0.0 (0.0-0.2) K/mcL Sodium 138 (136-145) mEq/L Potassium 4.5 (3.5-5.1) mEq/L Chloride 100 (98-107) mEq/L Carbon Dioxide 28 (23-29) mEq/L BUN 27 H (8-23) mg/dL Creatinine 1.19 (0.70-1.30) mg/dL Est GFR ( Amer) > 60 (> 60) Est GFR (Non-Af Amer) 58 L (> 60) BUN/Creatinine Ratio 23 (6-26) Glucose 96 (70-105) mg/dL Calculated Osmolality 291 (280-300) Calcium 8.8 (8.6-10.3) mg/dL Total Bilirubin 0.3 (0.3-1.0) mg/dL AST 15 (13-39) Units/L ALT 8 (7-52) Units/L Alkaline Phosphatase 52 (34-104) Units/L Troponin I < 0.03 (< 0.04) ng/mL Serum Total Protein 6.0 L (6.4-8.9) g/dL Albumin 3.5 (3.5-5.7) g/dL Globulin 2.5 (2.4-3.5) g/dL Albumin/Globulin Ratio 1.4 (1.1-2.2) Urine Color Yellow (Yellow) Urine Clarity Clear (Clear) Urine pH 6.0 (5.0-8.0) pH Units Ur Specific [place] 1.025 (1.010-1.025) Urine Protein Trace (Neg-Trace) mg/dL Urine Glucose (UA) Normal (Normal) mg/dL Urine Ketones Negative (Negative) mg/dL Urine Blood Negative (Negative) Urine Nitrite Negative (Negative) Urine Bilirubin Negative (Negative) Urine Urobilinogen Normal (Normal) mg/dL Ur Leukocyte Esterase Negative (Negative) Ur Culture Indicated? NO (NO) - Radiology Data Radiology results reviewed: Yes I reviewed the patient's radiology results. 3D Reconstruction 10/28/18 21:52 IMPRESSION: No acute intracranial abnormality. No acute traumatic injury of the facial bones. No acute fracture of the cervical spine. 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 D/ / Ottoniel Bradley MD / Ottoniel Bradley MD Interpreting Provider: Ottoniel Bradley MD Cervical Spine CT 10/28/18 21:52 IMPRESSION: No acute intracranial abnormality. No acute traumatic injury of the facial bones. No acute fracture of the cervical spine. 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 D/ / Ottoniel Bradley MD / Ottoniel Bradley MD Interpreting Provider: Ottoniel Bradley MD Face CT 10/28/18 21:52 IMPRESSION: No acute intracranial abnormality. No acute traumatic injury of the facial bones. No acute fracture of the cervical spine. 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 D/ / Ottoniel Bradley MD / Ottoniel Bradley MD Interpreting Provider: Ottoniel Bradley MD Head CT 10/28/18 21:52 IMPRESSION: No acute intracranial abnormality. No acute traumatic injury of the facial bones. No acute fracture of the cervical spine. 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 D/ / Ottoniel Bradley MD / Ottoniel Bradley MD Interpreting Provider: Ottoniel Bradley MD Chest X-Ray 10/28/18 22:07 IMPRESSION: Unremarkable portable chest radiograph. D/ / Doc Colon MD / Doc Colon MD Interpreting Provider: Doc Colon MD Elbow X-Ray 10/28/18 22:07 IMPRESSION: No acute abnormality identified. D/ / Doc Colon MD / Doc Colon MD Interpreting Provider: Doc Colon MD - EKG Data EKG #1 EKG attestation: Yes I reviewed and interpreted this EKG. EKG results narrative: EKG performed at 1930 reviewed by myself and attending shows a sinus rhythm at a rate of 82, AL 210, QRS 94, QTc 412, normal axis. There are no ST changes and no T wave changes no other signs of ischemia. EKG unchanged from EKG performed 05/12/2018 overall this is a normal EKG.
[2018-10-28 20:47] LABS: Basophils % 0.2 %; Eosinophils # 0.1 K/mcL (0.0-0.6); Eosinophils % 1.3 %; Hematocrit 34.6 % (37.5-50.1); Hemoglobin 11.3 g/dL (12.9-16.9); Immature Granulocytes % 0.4 % (0-4); Lymphocytes # 0.4 K/mcL (0.6-4.6); Lymphocytes % 3.4 %; Mean Corpuscular HGB Conc 32.7 g/dL (31.6-35.5); Mean Corpuscular Hemoglobin 29.1 pg (28.0-33.3); Mean Corpuscular Volume 89.2 fL (83.0-100.0); Mean Platelet Volume 9.5 fL (9.4-12.4); Monocytes # 0.6 K/mcL (0.0-1.3); Monocytes % 5.8 %; Neutrophils # 9.3 K/mcL (1.6-8.9); Platelet Count 242 K/mcL (140-400); Red Blood Count 3.88 M/mcL (4.19-5.50); Red Cell Distribution Width 14.3 % (11.5-14.5); Segmented Neutrophils % 88.9 %; White Blood Count 10.4 K/mcL (4.3-11.1)
[2018-10-28] MEDS ORDERED: 0.9 % Sodium Chloride 1,000 ML IVC ONE (21:09)
[2018-10-28 21:11] LABS: Alanine Aminotransferase 8 Units/L (7-52); Albumin 3.5 g/dL (3.5-5.7); Albumin/Globulin Ratio 1.4 (1.1-2.2); Alkaline Phosphatase 52 Units/L (34-104); Aspartate Amino Transferase 15 Units/L (13-39); BUN/Creatinine Ratio 23 (6-26); Bilirubin,Total 0.3 mg/dL (0.3-1.0); Blood Urea Nitrogen 27 mg/dL (8-23); Calcium 8.8 mg/dL (8.6-10.3); Carbon Dioxide 28 mEq/L (23-29); Chloride 100 mEq/L (98-107); Globulin 2.5 g/dL (2.4-3.5); Glucose 96 mg/dL (70-105); Osmolality,Calculated 291 (280-300); Potassium 4.5 mEq/L (3.5-5.1); Sodium 138 mEq/L (136-145); Troponin I < 0.03 ng/mL (< 0.04); eGFR For African Americans > 60 (> 60); eGFR For Non-African Americans 58 (> 60)
[2018-10-28 21:13] LABS: Bilirubin,Urine Negative (Negative); Blood,Urine Negative (Negative); Clarity,Urine Clear (Clear); Color,Urine Yellow (Yellow); Glucose,Urine (UA) Normal (Normal); Ketones,Urine Negative (Negative); Leukocyte Esterase,Urine Negative (Negative); Nitrite,Urine Negative (Negative); Protein,Urine Trace mg/dL (Neg-Trace); Specific Gravity,Urine 1.025 (1.010-1.025); Urobilinogen,Urine Normal (Normal)
--- NOTE | 2018-10-28 22:43 | Emergency Department Note ---
Disposition Clinical Impression: Syncope Qualifiers: Syncope type: unspecified Qualified Code(s): R55 - Syncope and collapse Falls Qualifiers: Encounter type: initial encounter Qualified Code(s): W19.XXXA - Unspecified fall, initial encounter Disposition: Admitted As Inpatient Condition: Good Referrals: Keven Nichols MD [Primary Care Provider] - Time of Disposition: 22:43 General Adult HPI - General Chief complaint: ED Fall Stated complaint: fall Time Seen by Provider: 10/28/18 19:36 Source: patient Mode of arrival: EMS Limitations: no limitations - History of Present Illness Pain Scale: 0 - Related Data Home Medications Medication Instructions Recorded Confirmed Glimepiride [Amaryl] 1 mg PO BID 08/12/17 05/13/18 Lisinopril [Zestril] 40 mg PO DAILY 08/12/17 05/13/18 Metformin HCl [Glucophage] 1,000 mg PO BIDWM 08/12/17 05/13/18 Metoprolol Succinate [Toprol Xl] 50 mg PO DAILY 08/12/17 05/13/18 Sildenafil Citrate [Revatio] 20 - 100 mg PO DAILY PRN 08/12/17 05/13/18 Simvastatin [Zocor] 20 mg PO HS 08/12/17 05/13/18 Triamterene/Hydrochlorothiazid 1 mg PO DAILY 08/12/17 05/13/18 [Dyazide 37.5-25 Capsule] Aspirin 81 mg PO DAILY 05/12/18 05/13/18 Clobetasol Propionate 0.05% 1 appl TP AD 05/13/18 05/13/18 [Temovate 0.05%] Allergies Allergy/AdvReac Type Severity Reaction Status Date / Time No Known Allergies Allergy Verified 11/30/17 16:44 Constitutional: Reports: weakness. Denies: fever, chills Eyes: Denies: eye pain, eye discharge ENT ED: Denies: ear pain, throat pain Cardiovascular: Denies: chest pain, palpitations Respiratory: Denies: cough, dyspnea Gastrointestinal: Denies: abdominal pain, nausea Genitourinary: Denies: urgency, dysuria Musculoskeletal: Denies: back pain, neck pain Integumentary: Denies: rash, abrasion Neurological: Denies: headache, weakness Psychiatric: Denies: anxiety, depression Endocrine: Denies: fatigue, heat or cold intolerance Hematological/Lymphatic: Denies: easy bleeding, easy bruising Allergic/Immunologic: Denies: facial swelling, urticaria Past Medical History - Past Medical History Medical history: Reports: cancer, diabetes, hyperlipidemia, hypertension Surgical history: Reports: angioplasty/stent Psychiatric history: Reports: anxiety - Social History Smoking Status: Former smoker Smokeless Tobacco Status: No Alcohol use: Reports: rarely Drug use: Reports: none Physical Exam - General Limitations: no limitations General appearance: alert, in no apparent distress Course Vital Signs Temperature 98.9 F 10/28/18 19:30 Pulse Rate 79 10/28/18 19:30 Respiratory Rate 16 10/28/18 19:30 Blood Pressure 118/53 10/28/18 19:30 O2 Sat by Pulse Oximetry 97 10/28/18 19:30 Temperature 98.9 F 10/28/18 19:30 Pulse Rate 80 10/28/18 21:02 Respiratory Rate 18 10/28/18 21:02 Blood Pressure 113/58 10/28/18 21:02 O2 Sat by Pulse Oximetry 95 10/28/18 21:02 Oxygen Delivery Oxygen Delivery Room Air Medical Decision Making - Lab Data Result diagrams: 10/28/18 20:30 10/28/18 20:30 Lab Results 10/28/18 10/28/18 10/28/18 Range/Units 20:30 20:30 20:34 WBC 10.4 (4.3-11.1) K/mcL RBC 3.88 L (4.19-5.50) M/mcL Hgb 11.3 L (12.9-16.9) g/dL Hct 34.6 L (37.5-50.1) % MCV 89.2 (83.0-100.0) fL MCH 29.1 (28.0-33.3) pg MCHC 32.7 (31.6-35.5) g/dL RDW 14.3 (11.5-14.5) % Plt Count 242 (140-400) K/mcL MPV 9.5 (9.4-12.4) fL Immature Gran % 0.4 (0-4) % Seg Neutrophils % 88.9 % Lymphocytes % 3.4 % Monocytes % 5.8 % Eosinophils % 1.3 % Basophils % 0.2 % Neutrophils # 9.3 H (1.6-8.9) K/mcL Lymphocytes # 0.4 L (0.6-4.6) K/mcL Monocytes # 0.6 (0.0-1.3) K/mcL Eosinophils # 0.1 (0.0-0.6) K/mcL Basophils # 0.0 (0.0-0.2) K/mcL Sodium 138 (136-145) mEq/L Potassium 4.5 (3.5-5.1) mEq/L Chloride 100 (98-107) mEq/L Carbon Dioxide 28 (23-29) mEq/L BUN 27 H (8-23) mg/dL Creatinine 1.19 (0.70-1.30) mg/dL Est GFR ( Amer) > 60 (> 60) Est GFR (Non-Af Amer) 58 L (> 60) BUN/Creatinine Ratio 23 (6-26) Glucose 96 (70-105) mg/dL Calculated Osmolality 291 (280-300) Calcium 8.8 (8.6-10.3) mg/dL Total Bilirubin 0.3 (0.3-1.0) mg/dL AST 15 (13-39) Units/L ALT 8 (7-52) Units/L Alkaline Phosphatase 52 (34-104) Units/L Troponin I < 0.03 (< 0.04) ng/mL Serum Total Protein 6.0 L (6.4-8.9) g/dL Albumin 3.5 (3.5-5.7) g/dL Globulin 2.5 (2.4-3.5) g/dL Albumin/Globulin Ratio 1.4 (1.1-2.2) Urine Color Yellow (Yellow) Urine Clarity Clear (Clear) Urine pH 6.0 (5.0-8.0) pH Units Ur Specific [place] 1.025 (1.010-1.025) Urine Protein Trace (Neg-Trace) mg/dL Urine Glucose (UA) Normal (Normal) mg/dL Urine Ketones Negative (Negative) mg/dL Urine Blood Negative (Negative) Urine Nitrite Negative (Negative) Urine Bilirubin Negative (Negative) Urine Urobilinogen Normal (Normal) mg/dL Ur Leukocyte Esterase Negative (Negative) Ur Culture Indicated? NO (NO) Attestation Statement - Attestation Attestation: I reviewed the residents documentation and agree with the residents assessment and plan of care. I have personally had face to face time with the patient. (Brief History, Brief Exam, and MDM) I personally supervised and was present for the chavez/critical portions of the following procedures completed by the resident: EKG 87 year old male presents to the ED with complaints of fall with syncope and has a CAD with cardiac stents. CT trauma scans are otherwise negative. CArdiopulmonary wokrup is otherwise negative. WE will admit to medicine for syncope and falls.
--- NOTE | 2018-10-28 23:59 | Internal Med History&Physical ---
<Deonna Arboleda Brooks - Last Filed: 10/29/18 03:09> Date of Encounter: 10/29/18 Time of Encounter: 11:55 Internal Medicine - H&P: HPI Chief complaint: fall Admitted From: Home History of present illness: Mr. Astorga is a 87 year old male with past medical history of diabetes, hypertension presents today after a fall in home. Patient states about 1:30 in the afternoon patient was seated in his recliner when he attempted to stand up with the help of his walker he lost his balance and fell into the wall. He hit his head and fell down to the floor. Patient states he he was unable to get up on his own, did not lose consciousness, so was able to call for his who was unable to help him off the floor. Since his was unable to help him off the floor, she then called for EMS for assistance. EMS and brought him to the ED. Patient does not recall hitting his elbow although there is left elbow laceration. Patient states for the past year he has been having episodes of dizziness. This morning he did have an episode of dizziness and took a medication for this dizziness. On chart review patient has been taking meclizine for vertigo. On interview patient states he last saw his PCP 3 months ago although upon chart review patient saw his PCP on 10/22/18, where he was advised to continue his current blood pressure medications and to check his blood pressure regularly. Patient states he does not check his blood pressure regularly only about once a week. Patient states directly prior to today's fall he did not have any episodes of dizziness, chest pain, headache,or blurred vision. Patient is currently admitted for multiple recent episodes of falls. Past Med Surg Social Fam HX - Past Medical History Medical history: cancer, diabetes, hyperlipidemia, hypertension Additional medical history: Carcinoma in Situ, Scrotal mass, Stasis dermatitis. Psychiatric history: anxiety - Past Surgical History Surgical History: angioplasty/stent Additional surgical history: Basal cell adinoma removed, - Social History Smoking Status: Former smoker Smokeless Tobacco Status: No Alcohol use: rarely Drug use: none - Family History Son Hx Family Cancer: Yes (Prostate) Mother Adopted: No Family Member Ethnicity: Non- Living Status: Hx Family Cardiac Disorders: Yes Hx Family Respiratory Disorders: No Hx Family Cancer: No Hx Family GI Disorders: No Hx Family Endocrine Disorder: Yes Hx Family Neuromuscular Disorders: No Hx Family Neurologic Disorders: No Hx Family HEENT Disorders: No Hx Family Autoimmune Disorders: No Father Adopted: No Family Member Ethnicity: Non- Living Status: Hx Family Cardiac Disorders: No Hx Family Respiratory Disorders: No Hx Family Cancer: No Hx Family GI Disorders: No Hx Family Endocrine Disorder: No Hx Family Neuromuscular Disorders: No Hx Family Neurologic Disorders: No Hx Family HEENT Disorders: No Hx Family Autoimmune Disorders: No Internal Medicine - H&P: Meds Glimepiride [Amaryl] 1 mg PO BID 08/12/17 [History] Lisinopril [Zestril] 40 mg PO DAILY 08/12/17 [History] Metformin HCl [Glucophage] 1,000 mg PO BIDWM 08/12/17 [History] Metoprolol Succinate [Toprol Xl] 50 mg PO DAILY 08/12/17 [History] Sildenafil Citrate [Revatio] 20 - 100 mg PO DAILY PRN 08/12/17 [History] Simvastatin [Zocor] 20 mg PO HS 08/12/17 [History] Triamterene/Hydrochlorothiazid [Dyazide 37.5-25 Capsule] 25 mg PO DAILY 08/12/17 [History] Aspirin 81 mg PO DAILY 05/12/18 [History] Doxycycline 1 each PO BID 10/28/18 [History] Sulfamethoxazole/Trimeth DS [Bactrim Ds] 1 each PO BID 10/28/18 [History] Allergy/AdvReac Type Severity Reaction Status Date / Time No Known Allergies Allergy Verified 11/30/17 16:44 All Systems PM: A 10-system review of systems was performed and is negative for pertinent find ings except as documented above in the HPI. Review of systems: Constitutional: Denies Fever, Chills, Headache, admits Dizziness this morning Respiratory: Denies Shortness of breath, Chronic cough, hemoptysis, Dyspnea at rest, or activity Cardiovascular: Denies Chest pain, Syncope, Peripheral edema , palpitations Gastrointestinal: Denies hematochezia, Abdominal pain, nausea, vomiting Genitourinary: Denies Painful urination, hematuria, urinary retention Endocrine: denies unintentional Significant weight changes Skin: Denies rashes, or unexplained bruising - Constitutional Vitals: Temp Pulse Resp BP Pulse Ox 98.5 F 70 16 117/71 92 10/28/18 23:49 09/17/19 23:49 10/28/18 23:49 10/28/18 23:49 10/28/18 23:49 Exam: Gen: alert/orientedx3, no acute distress. Head: mild skin tear on R scalp and actinic keratosison Left scalp, normocephalic. ENT: no oropharyngeal erythema, mucous membranes moist. Neck: No thyromegaly appreciated. Neck supple no cervical lymphadenopathy. Resp: CTAB, no wheezing, rhonchi, or rhales. CV: RRR, Normal S1 and S2. No murmur, gallops, or rubs. GI/Abdominal exam: bowel sounds throughout, soft, non-tender, non- distended; no hepatosplenomegaly Skin:skin tear L elbow, and LUE. L foot wrapped in gauze, LLE with mild venous stasis changes and skin tears. Ext: No cyanosis +2 pitting edema LE b/l, pulses +2/4 bilaterally UE and LE. Neuro: no focal deficits, cooperative with exam. Internal Med - H&P Results - Labs CBC & Chem 7: 10/28/18 20:30 10/28/18 20:30 Labs: Short CBC 10/28/18 Range/Units 20:30 WBC 10.4 (4.3-11.1) K/mcL Hgb 11.3 L (12.9-16.9) g/dL Hct 34.6 L (37.5-50.1) % Plt Count 242 (140-400) K/mcL Neutrophils # 9.3 H (1.6-8.9) K/mcL BMP 10/28/18 20:30 Sodium 138 Potassium 4.5 Chloride 100 Carbon Dioxide 28 BUN 27 H Creatinine 1.19 Glucose 96 Calcium 8.8 Cardiac Enzymes 10/28/18 Range/Units 20:30 Troponin I < 0.03 (< 0.04) ng/mL Liver Function 10/28/18 Range/Units 20:30 Total Bilirubin 0.3 (0.3-1.0) mg/dL AST 15 (13-39) Units/L ALT 8 (7-52) Units/L Alkaline Phosphatase 52 (34-104) Units/L Albumin 3.5 (3.5-5.7) g/dL Urine 10/28/18 Range/Units 20:34 Urine Color Yellow (Yellow) Urine Clarity Clear (Clear) Urine pH 6.0 (5.0-8.0) pH Units Ur Specific [place] 1.025 (1.010-1.025) Urine Protein Trace (Neg-Trace) mg/dL Urine Glucose (UA) Normal (Normal) mg/dL - Impressions ITS Impressions 3D Reconstruction 10/28/18 21:52 IMPRESSION: No acute intracranial abnormality. No acute traumatic injury of the facial bones. No acute fracture of the cervical spine. 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 D/ / Ottoniel Bradley MD / Ottoniel Bradley MD Interpreting Provider: Ottoniel Bradley MD Cervical Spine CT 10/28/18 21:52 IMPRESSION: No acute intracranial abnormality. No acute traumatic injury of the facial bones. No acute fracture of the cervical spine. 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 D/ / Ottoniel Bradley MD / Ottoniel Bradley MD Interpreting Provider: Ottoniel Bradley MD Face CT 10/28/18 21:52 IMPRESSION: No acute intracranial abnormality. No acute traumatic injury of the facial bones. No acute fracture of the cervical spine. 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 D/ / Ottoniel Bradley MD / Ottoniel Bradley MD Interpreting Provider: Ottoniel Bradley MD Head CT 10/28/18 21:52 IMPRESSION: No acute intracranial abnormality. No acute traumatic injury of the facial bones. No acute fracture of the cervical spine. 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 D/ / Ottoniel Bradley MD / Ottoniel Bradley MD Interpreting Provider: Ottoniel Bradley MD Chest X-Ray 10/28/18 22:07 IMPRESSION: Unremarkable portable chest radiograph. D/ / Doc Colon MD / Doc Colon MD Interpreting Provider: Doc Colon MD Elbow X-Ray 10/28/18 22:07 IMPRESSION: No acute abnormality identified. D/ / Doc Colon MD / Doc Colon MD Interpreting Provider: Doc Colon MD - Assessment and Plan (1) Near syncope Current Visit: Yes Status: Acute Assessment and plan: Jessica is a 87 Y/o Male with PMHx of HTN, and DM2 who presents with recent episodes of falls and increasing dizziness for the past year. Patient states he has has episodes of falls in the past this recent episode he was unable to pick himself up off the floor. On chart review he is currently being treated for vertigo with meclizine, and patient states he takes this medication just PRN for dizziness. Patient did not have dizziness with this fall he states he lost his balance.On arrival to the ED CT of Head, face, neck and xrays of chest and elbow were negative for acute events or fractures. Plan: - Fall precautions - Orthostatic BPs - Due to concerns for BP causing his episodes of vertigo and decreased BP, I will not restart his Triamterene/HCTZ during his stay. (2) Hypertension Current Visit: Yes Status: Chronic Assessment and plan: Due to Concerns for Hypotension causing his dizziness and vertigo, will continue his metoprolol 50 mg by mouth daily, and lisinopril 40 MG by mouth daily but will not continue his triamterene/HCTZ during his stay. Qualifiers: Hypertension type: essential hypertension Qualified Code(s): I10 - Essential (primary) hypertension (3) Generalized weakness Current Visit: Yes Status: Acute Assessment and plan: Patient has had multiple episodes of falls recently. 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 Patient is seen by dermatology for actinic keratosis on scalp. Plan; - Consult wound care for wound on left foot. - Consult wound care for care of actinic keratosis during stay. (5) DVT prophylaxis Current Visit: Yes Status: Acute Assessment and plan: Subcutaneous heparin - Time Spent With Patient Total time spent is greater than 50% in coordination of care (as documented) at patient's floor/unit and/or counseling patient: <Bhavana Moura - Last Filed: 10/29/18 06:39> Date of Encounter: 10/29/18 Internal Medicine - H&P: HPI History of present illness: Mr. Astorga is a 87 year old male All Systems PM: A 10-system review of systems was performed and is negative for pertinent findings except as documented above in the HPI. - Constitutional Vitals: Temp Pulse Resp BP Pulse Ox 97.9 F 74 16 122/67 91 10/29/18 03:48 10/29/18 03:50 10/29/18 03:48 10/29/18 03:50 10/29/18 03:48 Internal Med - H&P Results - Labs CBC & Chem 7: 10/28/18 20:30 10/28/18 20:30 Labs: Short CBC 10/28/18 Range/Units 20:30 WBC 10.4 (4.3-11.1) K/mcL Hgb 11.3 L (12.9-16.9) g/dL Hct 34.6 L (37.5-50.1) % Plt Count 242 (140-400) K/mcL Neutrophils # 9.3 H (1.6-8.9) K/mcL BMP 10/28/18 20:30 Sodium 138 Potassium 4.5 Chloride 100 Carbon Dioxide 28 BUN 27 H Creatinine 1.19 Glucose 96 Calcium 8.8 Cardiac Enzymes 10/28/18 Range/Units 20:30 Troponin I < 0.03 (< 0.04) ng/mL Liver Function 10/28/18 Range/Units 20:30 Total Bilirubin 0.3 (0.3-1.0) mg/dL AST 15 (13-39) Units/L ALT 8 (7-52) Units/L Alkaline Phosphatase 52 (34-104) Units/L Albumin 3.5 (3.5-5.7) g/dL Urine 10/28/18 Range/Units 20:34 Urine Color Yellow (Yellow) Urine Clarity Clear (Clear) Urine pH 6.0 (5.0-8.0) pH Units Ur Specific [place] 1.025 (1.010-1.025) Urine Protein Trace (Neg-Trace) mg/dL Urine Glucose (UA) Normal (Normal) mg/dL - Impressions ITS Impressions 3D Reconstruction 10/28/18 21:52 IMPRESSION: No acute intracranial abnormality. No acute traumatic injury of the facial bones. No acute fracture of the cervical spine. 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 D/ / Ottoniel Bradley MD / Ottoniel Bradley MD Interpreting Provider: Ottoniel Bradley MD Cervical Spine CT 10/28/18 21:52 IMPRESSION: No acute intracranial abnormality. No acute traumatic injury of the facial bones. No acute fracture of the cervical spine. 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 D/ / Ottoniel Bradley MD / Ottoniel Bradley MD Interpreting Provider: Ottoniel Bradley MD Face CT 10/28/18 21:52 IMPRESSION: No acute intracranial abnormality. No acute traumatic injury of the facial bones. No acute fracture of the cervical spine. 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 D/ / Ottoniel Bradley MD / Ottoniel Bradley MD Interpreting Provider: Ottoniel Bradley MD Head CT 10/28/18 21:52 IMPRESSION: No acute intracranial abnormality. No acute traumatic injury of the facial bones. No acute fracture of the cervical spine. 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 D/ / Ottoniel Bradley MD / Ottoniel Bradley MD Interpreting Provider: Ottoniel Bradley MD Chest X-Ray 10/28/18 22:07 IMPRESSION: Unremarkable portable chest radiograph. D/ / Doc Colon MD / Doc Colon MD Interpreting Provider: Doc Colon MD Elbow X-Ray 10/28/18 22:07 IMPRESSION: No acute abnormality identified. D/ / Doc Colon MD / Doc Colon MD Interpreting Provider: Doc Colon MD - Time Spent With Patient Total time spent is greater than 50% in coordination of care (as documented) at patient's floor/unit and/or counseling patient: - Attending Attestation Pleasant 87-year-old elderly male history of uncontrolled diabetes presents here to the ED after multiple falls. Patient reported having at least 10 falls this year and has been using his cane and intermittently his walker. Patient denied any lightheadedness, nausea, palpitations, chest pain or shortness of breath prior to the fall. Patient denied any loss of consciousness, bladder or bowel incontinence. Patient explains the fall with being unstable on his right knee and pain and locking. Patient denies any trauma or surgery. Patient was at home, on exam multiple bruises throughout his body. Patient will be admitted for disequilibrium with PT evaluation. Patient also noted to be on multiple blood pressure medication with his BP significantly below goal are present in the beer criteria table thus recommend decreasing blood pressure medication.
[2018-10-29] MEDS ORDERED: Naloxone 0.4 MG/ML INJ IVP PRN (02:01)
[2018-10-29] MEDS ORDERED: Acetaminophen 325 MG TABLET PO PRN (02:01)
[2018-10-29] MEDS ORDERED: D5% in Water 1,000 ML IVC PRN (09:00)
[2018-10-29] MEDS ORDERED: *HR* Dextrose 50 % in Water (Syg) 50 ML SYRINGE IVP PRN (09:00)
[2018-10-29] MEDS ORDERED: Dextrose Gel 15 GM/37.5 ML TUBE PO PRN ×2 (09:00)
[2018-10-29] MEDS: Lisinopril 20 MG TABLET PO SCH (11:15)
[2018-10-29] MEDS: Sulfamethoxazole/Trimeth DS 1 EACH TABLET PO SCH ×2 (11:15→22:00)
[2018-10-29] MEDS: Doxycycline 100 MG CAPSULE PO SCH ×2 (11:15→22:00)
[2018-10-29] MEDS: Metoprolol XL (24 HR) Succ 50 MG TAB.ER.24H PO SCH (11:16)
--- NOTE | 2018-10-29 11:26 | Internal Med Progress Note ---
Hospitalist Progress Note - Encounter Date of Encounter: 10/29/18 Time of Encounter: 11:22 - Subjective Interval History: Mr. Astorga is a 87 year old male with past medical history of diabetes, hypertension presents today after a fall at home. Patient states about 1:30 in the afternoon patient was seated in his recliner when he attempted to stand up with the help of his walker he lost his balance and fell into the wall. He hit his head and fell down to the floor. Patient states he he was unable to get up on his own, did not lose consciousness, so was able to call for his who was unable to help him off the floor. EMS and brought him to the ED. Patient does not recall hitting his elbow although there is left elbow laceration. Patient states for the past year he has been having episodes of dizziness. This morning he did have an episode of dizziness and took a medication for this dizziness. On chart review patient has been taking meclizine for vertigo. On interview patient states he last saw his PCP 3 months ago although upon chart review patient saw his PCP on 10/22/18, where he was advised to continue his current blood pressure medications and to check his blood pressure regularly. Patient states he does not check his blood pressure regularly only about once a week. Patient states directly prior to today's fall he did not have any episodes of dizziness, chest pain, headache,or blurred vision. Patient is currently admitted for multiple recent episodes of falls. Patient seen and examined in the room. He reported absence of dizziness overnight. Several skin tear noted on the face, left arm and the left elbow. He also has a chronic ulcer on the left big toe, which he follows wound care clinic regularly. - Exam Vitals: Temp Pulse Resp BP Pulse Ox 98.1 F 79 16 156/79 91 10/29/18 10:58 10/29/18 10:58 10/29/18 10:58 10/29/18 10:58 10/29/18 10:58 Exam: Gen: alert/orientedx3, no acute distress. Head: mild skin tear on R scalp and actinic keratosison Left scalp, normocephalic. ENT: no oropharyngeal erythema, mucous membranes moist. Neck: No thyromegaly appreciated. Neck supple no cervical lymphadenopathy. Resp: CTAB, no wheezing, rhonchi, or rhales. CV: RRR, Normal S1 and S2. No murmur, gallops, or rubs. GI/Abdominal exam: bowel sounds throughout, soft, non-tender, non- distended; no hepatosplenomegaly Skin:skin tear L elbow, and LUE. L foot wrapped in gauze, LLE with mild venous stasis changes and skin tears. Ext: No cyanosis +2 pitting edema LE b/l, pulses +2/4 bilaterally UE and LE. Neuro: no focal deficits, cooperative with exam. - Assessment and Plan (1) Falls Current Visit: Yes Status: Acute Assessment and Plan: Based on history and the patient report, this seems a mechanical fall rather than caused by syncope. Orthostatic BP was negative. Patient reported family history of dizziness, we will will check carotid Doppler. Further workup may pursue if indicated. PT/OT consult. (2) Hypertension Current Visit: No Status: Chronic Assessment and Plan: Blood pressure well controlled, orthostatic BP was normal, continue home medications. (3) CAD (coronary artery disease) Current Visit: No Status: Chronic Assessment and Plan: Patient has no chest pain, troponin was negative, EKG has no acute ST-T change. 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 Wound care consulted. (5) Near syncope Current Visit: Yes Status: Acute Assessment and Plan: Patient reported family history of dizziness, he takes meclizine at home. Orthostatic BP was normal. Echo in 2018 was unremarkable. We will check carotid Doppler, may pursue more workup if indicated. DVT Prophylaxis: SCDs. - Time Spent with Patient Total time spent is greater than 50% in coordination of care (as documented) at patient's floor/unit and/or counseling patient: Greater than 35 minutes Plan of Care Discussed with: patient Internal Medicine: Result - Labs CBC & Chem 7: 10/28/18 20:30 10/28/18 20:30 Labs: Short CBC 10/28/18 Range/Units 20:30 WBC 10.4 (4.3-11.1) K/mcL Hgb 11.3 L (12.9-16.9) g/dL Hct 34.6 L (37.5-50.1) % Plt Count 242 (140-400) K/mcL Neutrophils # 9.3 H (1.6-8.9) K/mcL BMP 10/28/18 20:30 Sodium 138 Potassium 4.5 Chloride 100 Carbon Dioxide 28 BUN 27 H Creatinine 1.19 Glucose 96 Calcium 8.8 Cardiac Enzymes 10/28/18 Range/Units 20:30 Troponin I < 0.03 (< 0.04) ng/mL Liver Function 10/28/18 Range/Units 20:30 Total Bilirubin 0.3 (0.3-1.0) mg/dL AST 15 (13-39) Units/L ALT 8 (7-52) Units/L Alkaline Phosphatase 52 (34-104) Units/L Albumin 3.5 (3.5-5.7) g/dL Urine 10/28/18 Range/Units 20:34 Urine Color Yellow (Yellow) Urine Clarity Clear (Clear) Urine pH 6.0 (5.0-8.0) pH Units Ur Specific [place] 1.025 (1.010-1.025) Urine Protein Trace (Neg-Trace) mg/dL Urine Glucose (UA) Normal (Normal) mg/dL - Impressions Impressions 3D Reconstruction 10/28/18 21:52 IMPRESSION: No acute intracranial abnormality. No acute traumatic injury of the facial bones. No acute fracture of the cervical spine. 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 D/ / Ottoniel Bradley MD / Ottoniel Bradley MD Interpreting Provider: Ottoniel Bradley MD Cervical Spine CT 10/28/18 21:52 IMPRESSION: No acute intracranial abnormality. No acute traumatic injury of the facial bones. No acute fracture of the cervical spine. 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 D/ / Ottoniel Bradley MD / Ottoniel Bradley MD Interpreting Provider: Ottoniel Bradley MD Face CT 10/28/18 21:52 IMPRESSION: No acute intracranial abnormality. No acute traumatic injury of the facial bones. No acute fracture of the cervical spine. 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 D/ / Ottoniel Bradley MD / Ottoniel Bradley MD Interpreting Provider: Ottoniel Bradley MD Head CT 10/28/18 21:52 IMPRESSION: No acute intracranial abnormality. No acute traumatic injury of the facial bones. No acute fracture of the cervical spine. 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 D/ / Ottoniel Bradley MD / Ottoniel Bradley MD Interpreting Provider: Ottoniel Bradley MD Chest X-Ray 10/28/18 22:07 IMPRESSION: Unremarkable portable chest radiograph. D/ / Doc Colon MD / Doc Colon MD Interpreting Provider: Doc Colon MD Elbow X-Ray 10/28/18 22:07 IMPRESSION: No acute abnormality identified. D/ / Doc Colon MD / Doc Colon MD Interpreting Provider: Doc Colon MD Consult Discharge Plan - Plan Instructions: Syncope (ED) Referrals: Keven Nichols MD [Primary Care Provider] - ___ (1) Falls Qualifiers: Encounter type: initial encounter Qualified Code(s): W19.XXXA - Unspecified fall, initial encounter (2) Hypertension Qualifiers: Hypertension type: essential hypertension Qualified Code(s): I10 - Essential (primary) hypertension (3) CAD (coronary artery disease) Qualifiers: Coronary Disease-Associated Artery/Lesion type: [place] artery [place] vs. transplanted heart: [place] heart Associated angina: without angina Qualified Code(s): I25.10 - Atherosclerotic heart disease of [place] coronary artery without angina pectoris
[2018-10-29] MEDS: Insulin LISPRO 300 UNITS/3 ML VIAL SQ SCH ×3 (12:07→22:00)
[2018-10-29] MEDS: Aspirin 81 MG TAB.CHEW PO SCH (12:21)
[2018-10-29] MEDS ORDERED: traMADol 50 MG TABLET PO PRN (16:50)
--- NOTE | 2018-10-30 06:39 | Electrocardiograph Report ---
[place] [facility] Test Date: 2018-10-28 Pat Name: Shawn Astorga Department: EXAM12 Room: [facility] Gender: M Etcher Aircraft: : [id number] Requested By: [id number] Order Number: [id number] Reading MD: Joe Xiong Measurements Intervals [place] Rate: 82 P: 28 OK: 210 QRS: 34 QRSD: 94 T: 58 QT: 352 QTc: 412 Interpretive Statements Sinus rhythm Electronically Signed On 10-30-2018 6:37:52 EDT by Joe Xiong
[2018-10-30 07:15] LABS: Basophils % 0.2 %; Eosinophils # 0.4 K/mcL (0.0-0.6); Eosinophils % 7.4 %; Hematocrit 37.6 % (37.5-50.1); Hemoglobin 12.1 g/dL (12.9-16.9); Immature Granulocytes % 0.5 % (0-4); Lymphocytes # 0.6 K/mcL (0.6-4.6); Lymphocytes % 10.2 %; Mean Corpuscular HGB Conc 32.2 g/dL (31.6-35.5); Mean Corpuscular Hemoglobin 29.1 pg (28.0-33.3); Mean Corpuscular Volume 90.4 fL (83.0-100.0); Mean Platelet Volume 10.1 fL (9.4-12.4); Monocytes # 0.6 K/mcL (0.0-1.3); Monocytes % 10.5 %; Neutrophils # 4.1 K/mcL (1.6-8.9); Platelet Count 233 K/mcL (140-400); Red Blood Count 4.16 M/mcL (4.19-5.50); Red Cell Distribution Width 14.1 % (11.5-14.5); Segmented Neutrophils % 71.2 %; White Blood Count 5.8 K/mcL (4.3-11.1)
[2018-10-30 07:30] LABS: BUN/Creatinine Ratio 18 (6-26); Blood Urea Nitrogen 17 mg/dL (8-23); Calcium 8.9 mg/dL (8.6-10.3); Carbon Dioxide 27 mEq/L (23-29); Chloride 100 mEq/L (98-107); Glucose 111 mg/dL (70-105); Osmolality,Calculated 286 (280-300); Potassium 3.9 mEq/L (3.5-5.1); Sodium 137 mEq/L (136-145); eGFR For African Americans > 60 (> 60); eGFR For Non-African Americans > 60 (> 60)
[2018-10-30] MEDS: Insulin LISPRO 300 UNITS/3 ML VIAL SQ SCH ×4 (08:04→20:31)
[2018-10-30] MEDS: Aspirin 81 MG TAB.CHEW PO SCH (09:53)
[2018-10-30] MEDS: Lisinopril 20 MG TABLET PO SCH (09:53)
[2018-10-30] MEDS: Metoprolol XL (24 HR) Succ 50 MG TAB.ER.24H PO SCH (09:53)
[2018-10-30] MEDS: Doxycycline 100 MG CAPSULE PO SCH ×2 (09:53→20:31)
[2018-10-30] MEDS: Sulfamethoxazole/Trimeth DS 1 EACH TABLET PO SCH ×2 (09:53→20:31)
--- NOTE | 2018-10-30 11:26 | Internal Med Progress Note ---
Hospitalist Progress Note - Encounter Date of Encounter: 10/30/18 Time of Encounter: 11:23 - Subjective Interval History: Mr. Astorga is a 87 year old male with past medical history of diabetes, hypertension presents today after a fall at home. Patient states about 1:30 in the afternoon patient was seated in his recliner when he attempted to stand up with the help of his walker he lost his balance and fell into the wall. He hit his head and fell down to the floor. Patient states he he was unable to get up on his own, did not lose consciousness, so was able to call for his who was unable to help him off the floor. EMS and brought him to the ED. Patient does not recall hitting his elbow although there is left elbow laceration. Patient states for the past year he has been having episodes of dizziness. This morning he did have an episode of dizziness and took a medication for this dizziness. On chart review patient has been taking meclizine for vertigo. On interview patient states he last saw his PCP 3 months ago although upon chart review patient saw his PCP on 10/22/18, where he was advised to continue his current blood pressure medications and to check his blood pressure regularly. Patient states he does not check his blood pressure regularly only about once a week. Patient states directly prior to today's fall he did not have any episodes of dizziness, chest pain, headache,or blurred vision. Patient is currently admitted for multiple recent episodes of falls. Patient seen and examined in the room. He reported absence of dizziness overnight. Reported his knees frequently give out which resulted in several falls. - Exam Vitals: Temp Pulse Resp BP Pulse Ox 98.5 F 65 16 115/73 97 10/30/18 11:12 10/30/18 11:12 10/30/18 11:12 10/30/18 11:12 10/30/18 11:12 Exam: Gen: alert/orientedx3, no acute distress. Head: mild skin tear on R scalp and actinic keratosison Left scalp, normocephalic. ENT: no oropharyngeal erythema, mucous membranes moist. Neck: No thyromegaly appreciated. Neck supple no cervical lymphadenopathy. Resp: CTAB, no wheezing, rhonchi, or rhales. CV: RRR, Normal S1 and S2. No murmur, gallops, or rubs. GI/Abdominal exam: bowel sounds throughout, soft, non-tender, non- distended; no hepatosplenomegaly Skin:skin tear L elbow, and LUE. L foot wrapped in gauze, LLE with mild venous stasis changes and skin tears. Ext: No cyanosis +2 pitting edema LE b/l, pulses +2/4 bilaterally UE and LE. Neuro: no focal deficits, cooperative with exam. - Assessment and Plan (1) Falls Current Visit: Yes Status: Acute Assessment and Plan: Based on history and the patient report, this seems a mechanical fall rather than caused by syncope. Orthostatic BP was negative. carotid Doppler showed non- stenotic plaque. PT/OT recommended inpatient rehab. Ortho was consulted for knee problems. (2) Hypertension Current Visit: No Status: Chronic Assessment and Plan: Blood pressure well controlled, orthostatic BP was normal, continue home medications. (3) CAD (coronary artery disease) Current Visit: No Status: Chronic Assessment and Plan: Patient has no chest pain, troponin was negative, EKG has no acute ST-T change. 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 Wound care consulted. (5) Near syncope Current Visit: Yes Status: Acute Assessment and Plan: Patient reported family history of dizziness, he takes meclizine at home. Orthostatic BP was normal. Echo in 2018 was unremarkable. Carotid doppler was unremarkable. DVT Prophylaxis: SCDs. - Time Spent with Patient Total time spent is greater than 50% in coordination of care (as documented) at patient's floor/unit and/or counseling patient: Greater than 35 minutes Plan of Care Discussed with: patient Internal Medicine: Result - Labs CBC & Chem 7: 10/30/18 06:10 10/30/18 06:10 Labs: Short CBC 10/30/18 Range/Units 06:10 WBC 5.8 (4.3-11.1) K/mcL Hgb 12.1 L (12.9-16.9) g/dL Hct 37.6 (37.5-50.1) % Plt Count 233 (140-400) K/mcL Neutrophils # 4.1 (1.6-8.9) K/mcL BMP 10/30/18 06:10 Sodium 137 Potassium 3.9 Chloride 100 Carbon Dioxide 27 BUN 17 Creatinine 0.97 Glucose 111 H Calcium 8.9 Consult Discharge Plan - Plan Instructions: Syncope (ED) Referrals: Keven Nichols MD [Primary Care Provider] - (1) Falls Qualifiers: Encounter type: initial encounter Qualified Code(s): W19.XXXA - Unspecified fall, initial encounter (2) Hypertension Qualifiers: Hypertension type: essential hypertension Qualified Code(s): I10 - Essential (primary) hypertension (3) CAD (coronary artery disease) Qualifiers: Coronary Disease-Associated Artery/Lesion type: [place] artery [place] vs. transplanted heart: [place] heart Associated angina: without angina Qualified Code(s): I25.10 - Atherosclerotic heart disease of [place] coronary artery without angina pectoris
--- NOTE | 2018-10-30 13:53 | Orthopedic Consult Note ---
<Taylor Nichols E - Last Filed: 10/30/18 13:52> Date of Encounter: 10/30/18 History of Present Illness HPI: Mr. Astorga is a 87 year old male Past Med Surg Social Fam HX - Past Medical History Medical history: cancer, diabetes, hyperlipidemia, hypertension Additional medical history: Carcinoma in Situ, Scrotal mass, Stasis dermatitis. Psychiatric history: anxiety - Past Surgical History Surgical History: angioplasty/stent Additional surgical history: Basal cell adinoma removed, - Social History Smoking Status: Former smoker Smokeless Tobacco Status: No Alcohol use: none Drug use: none - Family History Son Hx Family Cancer: Yes (Prostate) Mother Adopted: No Family Member Ethnicity: Non- Living Status: Hx Family Cardiac Disorders: Yes Hx Family Respiratory Disorders: No Hx Family Cancer: No Hx Family GI Disorders: No Hx Family Endocrine Disorder: Yes Hx Family Neuromuscular Disorders: No Hx Family Neurologic Disorders: No Hx Family HEENT Disorders: No Hx Family Autoimmune Disorders: No Father Adopted: No Family Member Ethnicity: Non- Living Status: Hx Family Cardiac Disorders: No Hx Family Respiratory Disorders: No Hx Family Cancer: Yes (prostate) Hx Family GI Disorders: No Hx Family Endocrine Disorder: No Hx Family Neuromuscular Disorders: No Hx Family Neurologic Disorders: No Hx Family HEENT Disorders: No Hx Family Autoimmune Disorders: No Medications and Allergies Glimepiride [Amaryl] 1 mg PO BID 08/12/17 [History] Lisinopril [Zestril] 40 mg PO DAILY 08/12/17 [History] Metformin HCl [Glucophage] 1,000 mg PO BIDWM 08/12/17 [History] Metoprolol Succinate [Toprol Xl] 50 mg PO DAILY 08/12/17 [History] Sildenafil Citrate [Revatio] 20 - 100 mg PO DAILY PRN 08/12/17 [History] Simvastatin [Zocor] 20 mg PO HS 08/12/17 [History] Triamterene/Hydrochlorothiazid [Dyazide 37.5-25 Capsule] 1 cap PO DAILY 08/12/17 [History] Aspirin 81 mg PO DAILY 05/12/18 [History] Sulfamethoxazole/Trimeth DS [Bactrim Ds] 1 each PO BID 10/28/18 [History] Meclizine HCl [Verticalm] 12.5 - 25 mg PO TID PRN 10/29/18 [History] Allergy/AdvReac Type Severity Reaction Status Date / Time No Known Allergies Allergy Verified 11/30/17 16:44 All Systems Reviewed: The remainder of the systems were reviewed and are negative Physical Exam - Constitutional Vitals: Temp Pulse Resp BP Pulse Ox 98.5 F 65 16 115/73 97 10/30/18 11:12 10/30/18 11:12 10/30/18 11:12 10/30/18 11:12 10/30/18 11:12 Results - Labs Result Diagrams: 10/30/18 06:10 10/30/18 06:10 Labs: Abnormal lab results RBC 4.16 M/mcL (4.19-5.50) L 10/30/18 06:10 Hgb 12.1 g/dL (12.9-16.9) L 10/30/18 06:10 Hct 34.6 % (37.5-50.1) L 10/28/18 20:30 Neutrophils # 9.3 K/mcL (1.6-8.9) H 10/28/18 20:30 Lymphocytes # 0.4 K/mcL (0.6-4.6) L 10/28/18 20:30 BUN 27 mg/dL (8-23) H 10/28/18 20:30 Est GFR (Non-Af Amer) 58 (> 60) L 10/28/18 20:30 Glucose 111 mg/dL (70-105) H 10/30/18 06:10 POC Glucose 177 mg/dL (70-99) H 10/29/18 16:19 Serum Total Protein 6.0 g/dL (6.4-8.9) L 10/28/18 20:30 H & H 10/30/18 Range/Units 06:10 Hgb 12.1 L (12.9-16.9) g/dL Hct 37.6 (37.5-50.1) % All other labs normal. Consult Discharge Plan - Plan Instructions: Syncope (ED) Referrals: Keven Nichols MD [Primary Care Provider] - (Appointment has been requested. ) <Taylor Gonzalez - Last Filed: 10/31/18 09:19> Date of Encounter: 10/31/18 Time of Encounter: 16:00 Assessment and Plan (1) Bilateral chronic knee pain Current Visit: Yes Status: Acute Pain has been ongoing for at least a year with weekly episodes of weakness causing buckling of knees. Per records he also has dizzy spells that also contribute to some of his falls so hard to distinguish which is the bigger cause at this point but per patient this most recent fall was purely related to knee pain/weakness with no dizziness at the time of fall. He has full ROM and strength bilateral lower extremities. Mild crepitus noted on exam. Will order xrays of bilateral knees and then reassess. Motion/ambulation as tolerated. cardiac/syncope work up per primary team. (2) Falls Current Visit: Yes Status: Acute Qualifiers: Encounter type: subsequent encounter Qualified Code(s): W19.XXXD - Unsp ecified fall, subsequent encounter (3) Generalized weakness Current Visit: Yes Status: Acute (4) Syncope Current Visit: Yes Status: Acute Qualifiers: Syncope type: unspecified Qualified Code(s): R55 - Syncope and collapse History of Present Illness Chief complaint: bilateral knee pain and weakness HPI: Mr. Astorga is a 87 year old male who presented to the ER after a fall 2 days ago. States the knees gave out on him while trying to stand from seated position and he did hit his head during this fall but denies LOC. He did have his walker with him but unable to catch himself this time. He was unable to get up himself and could not help either so EMS was called and transported patient to ED for further evaluation. States he has had worsening bilateral knee pain for about a year now but has never had it evaluated. Denies previous surgeries on knees and so far no conservative treatments. States he will have sharp pain ac ross front of knees usually while getting up to standing position or while walking a longer distance and then the knees will give out on him. Pain resolves quickly and not typically linger for too long. He states this happens weekly and he can usually catch himself but will occasionally fall as well. No pain currently and denies any numbness or tingling. Per records he has been having episodes of dizziness as well causing falls and he does take meclizine for vertigo. Denies any dizziness related to this most recent fall. No chest pain, SOB, fevers. All Systems Reviewed: The remainder of the systems were reviewed and are negative - Constitutional Constitutional: as per HPI - Cardiovascular Cardiovascular: as per HPI - Respiratory Respiratory: as per HPI - Musculoskeletal Musculoskeletal: as per HPI Physical Exam - Constitutional Vitals: Temp Pulse Resp BP Pulse Ox 98.5 F 65 16 115/73 97 10/30/18 11:12 10/30/18 11:12 10/30/18 11:12 10/30/18 11:12 10/30/18 11:12 - Knee bilateral Appearance: normal (No swelling, erythema, ecchymosis or open wounds noted to bilateral lower extremities.) Tenderness with palpation knee: none (no knee tenderness and no calf tenderness) Pain: no pain Full ROM: yes ROM: extension knee: Full ROM: flexion knee: Full Crepitus with motion: Yes Strength: extension knee: Full Strength: flexion: Full Results - Labs Result Diagrams: 10/30/18 06:10 10/30/18 06:10 Labs: Abnormal lab results RBC 4.16 M/mcL (4.19-5.50) L 10/30/18 06:10 Hgb 12.1 g/dL (12.9-16.9) L 10/30/18 06:10 Hct 34.6 % (37.5-50.1) L 10/28/18 20:30 Neutrophils # 9.3 K/mcL (1.6-8.9) H 10/28/18 20:30 Lymphocytes # 0.4 K/mcL (0.6-4.6) L 10/28/18 20:30 BUN 27 mg/dL (8-23) H 10/28/18 20:30 Est GFR (Non-Af Amer) 58 (> 60) L 10/28/18 20:30 Glucose 111 mg/dL (70-105) H 10/30/18 06:10 POC Glucose 177 mg/dL (70-99) H 10/29/18 16:19 Serum Total Protein 6.0 g/dL (6.4-8.9) L 10/28/18 20:30 H & H 10/30/18 Range/Units 06:10 Hgb 12.1 L (12.9-16.9) g/dL Hct 37.6 (37.5-50.1) % All other labs normal. - Diagnostic results Knee x-ray: pending
[2018-10-31 09:11] LABS: Hematocrit 37.9 % (37.5-50.1); Hemoglobin 12.7 g/dL (12.9-16.9); Mean Corpuscular HGB Conc 33.5 g/dL (31.6-35.5); Mean Corpuscular Hemoglobin 29.3 pg (28.0-33.3); Mean Corpuscular Volume 87.3 fL (83.0-100.0); Mean Platelet Volume 9.7 fL (9.4-12.4); Platelet Count 265 K/mcL (140-400); Red Blood Count 4.34 M/mcL (4.19-5.50); White Blood Count 6.4 K/mcL (4.3-11.1)
[2018-10-31] MEDS: Sulfamethoxazole/Trimeth DS 1 EACH TABLET PO SCH ×2 (09:20→20:27)
[2018-10-31] MEDS: Doxycycline 100 MG CAPSULE PO SCH ×2 (09:20→20:27)
[2018-10-31] MEDS: Metoprolol XL (24 HR) Succ 50 MG TAB.ER.24H PO SCH (09:21)
[2018-10-31] MEDS: Insulin LISPRO 300 UNITS/3 ML VIAL SQ SCH ×4 (09:21→21:16)
[2018-10-31] MEDS: Aspirin 81 MG TAB.CHEW PO SCH (09:21)
[2018-10-31] MEDS: Lisinopril 20 MG TABLET PO SCH (09:21)
[2018-10-31 09:30] LABS: BUN/Creatinine Ratio 17 (6-26); Blood Urea Nitrogen 17 mg/dL (8-23); Calcium 8.8 mg/dL (8.6-10.3); Carbon Dioxide 25 mEq/L (23-29); Chloride 100 mEq/L (98-107); Glucose 168 mg/dL (70-105); Osmolality,Calculated 281 (280-300); Potassium 4.4 mEq/L (3.5-5.1); Sodium 133 mEq/L (136-145); eGFR For African Americans > 60 (> 60); eGFR For Non-African Americans > 60 (> 60)
--- NOTE | 2018-10-31 13:16 | Orthopedics Progress Note ---
Date of Encounter: 10/31/18 Time of Encounter: 12:20 - Assessment and Plan (1) Bilateral chronic knee pain Current Visit: Yes Status: Acute Xray showed bilateral tricompartmental osteoarthrosis. Discussed with Dr. Lechuga and recommend conservative treatment options first as patient has never had any treatment for this so far. Recommend bilateral knee braces for stability and working with formal therapy for strengthening of the legs. Will set up follow up with sports medicine for further evaluation outpatient. (2) Falls Current Visit: Yes Status: Acute Qualifiers: Encounter type: subsequent encounter Qualified Code(s): W19.XXXD - Unspecified fall, subsequent encounter (3) Generalized weakness Current Visit: Yes Status: Acute (4) Syncope Current Visit: Yes Status: Acute Qualifiers: Syncope type: unspecified Qualified Code(s): R55 - Syncope and collapse Subjective Principal diagnosis: bilateral knee pain and weakness Interval history: S: Patient doing well today. currently no knee pain and no further episodes of weakness. Denies numbness or tingling in extremities. O: bilaterall knees - full ROM with no swelling, erythema, ecchymosis, no calf t enderness to palpation. Objective Vital signs: Vital Signs Temp Pulse Resp BP Pulse Ox 10/31/18 12:11 97.6 F 70 16 154/97 98 10/31/18 07:32 97.7 F 93 17 156/81 95 10/30/18 23:58 98.0 F 64 17 148/71 96 10/30/18 18:20 99.0 F 77 16 143/77 95 10/30/18 16:56 98.5 F 68 16 142/57 97 Intake and Output 10/30/18 10/31/18 10/31/18 23:59 07:59 15:59 Intake Total 240 / 240 Output Total 200 / 900 500 / 500 Balance -200 / 100 -260 / -260 Intake: Oral 240 / 240 Output: Urine 200 / 900 500 / 500 Other: Meal Breakfast Percent of Meal Consumed 100% Blood Glucose* 212 117 178 - Labs CBC & BMP: 10/31/18 08:52 10/31/18 08:52 Labs: Abnormal lab results RBC 4.16 M/mcL (4.19-5.50) L 10/30/18 06:10 Hgb 12.7 g/dL (12.9-16.9) L 10/31/18 08:52 Hct 34.6 % (37.5-50.1) L 10/28/18 20:30 Neutrophils # 9.3 K/mcL (1.6-8.9) H 10/28/18 20:30 Lymphocytes # 0.4 K/mcL (0.6-4.6) L 10/28/18 20:30 Sodium 133 mEq/L (136-145) L 10/31/18 08:52 BUN 27 mg/dL (8-23) H 10/28/18 20:30 Est GFR (Non-Af Amer) 58 (> 60) L 10/28/18 20:30 Glucose 168 mg/dL (70-105) H 10/31/18 08:52 POC Glucose 212 mg/dL (70-99) H 10/30/18 19:57 Serum Total Protein 6.0 g/dL (6.4-8.9) L 10/28/18 20:30 Consult Discharge Plan - Plan Instructions: Syncope (ED) Referrals: Oscar Coon MD [Partnered Physician] - 11/07/18 11:10 am Keven Nichols MD [Primary Care Provider] - (Appointment has been requested. )
--- NOTE | 2018-10-31 16:11 | Internal Med Progress Note ---
Hospitalist Progress Note - Encounter Date of Encounter: 10/31/18 Time of Encounter: 16:09 - Subjective Interval History: Mr. Astorga is a 87 year old male with past medical history of diabetes, hypertension presents today after a fall at home. Patient states about 1:30 in the afternoon patient was seated in his recliner when he attempted to stand up with the help of his walker he lost his balance and fell into the wall. He hit his head and fell down to the floor. Patient states he he was unable to get up on his own, did not lose consciousness, so was able to call for his who was unable to help him off the floor. EMS and brought him to the ED. Patient does not recall hitting his elbow although there is left elbow laceration. Patient states for the past year he has been having episodes of dizziness. This morning he did have an episode of dizziness and took a medication for this dizziness. On chart review patient has been taking meclizine for vertigo. On interview patient states he last saw his PCP 3 months ago although upon chart review patient saw his PCP on 10/22/18, where he was advised to continue his current blood pressure medications and to check his blood pressure regularly. Patient states he does not check his blood pressure regularly only about once a week. Patient states directly prior to today's fall he did not have any episodes of dizziness, chest pain, headache,or blurred vision. Patient is currently admitted for multiple episodes of falls. Patient seen and examined in the room. He reported absence of dizziness overnight. - Exam Vitals: Temp Pulse Resp BP Pulse Ox 97.6 F 70 16 154/97 98 10/31/18 12:11 10/31/18 12:11 10/31/18 12:11 10/31/18 12:11 10/31/18 12:11 Exam: Gen: alert/orientedx3, no acute distress. Head: mild skin tear on R scalp and actinic keratosison Left scalp, normocephalic. ENT: no oropharyngeal erythema, mucous membranes moist. Neck: No thyromegaly appreciated. Neck supple no cervical lymphadenopathy. Resp: CTAB, no wheezing, rhonchi, or rhales. CV: RRR, Normal S1 and S2. No murmur, gallops, or rubs. GI/Abdominal exam: bowel sounds throughout, soft, non-tender, non- distended; no hepatosplenomegaly Skin:skin tear L elbow, and LUE. L foot wrapped in gauze, LLE with mild venous stasis changes and skin tears. Ext: No cyanosis +2 pitting edema LE b/l, pulses +2/4 bilaterally UE and LE. Neuro: no focal deficits, cooperative with exam. - Assessment and Plan (1) Falls Current Visit: Yes Status: Acute Assessment and Plan: Based on history and the patient report, this seems a mechanical fall rather than caused by syncope. Orthostatic BP was negative. carotid Doppler showed non- stenotic plaque. PT/OT recommended inpatient rehab. X-ray of the knee showed tricompartmental osteoarthritis, worse in the right side. Ortho recommended conservative treatment, rehabilitation, knee brace, outpatient follow up with sports medicine. (2) Hypertension Current Visit: No Status: Chronic Assessment and Plan: Blood pressure well controlled, orthostatic BP was normal, continue home medications. (3) CAD (coronary artery disease) Current Visit: No Status: Chronic Assessment and Plan: Patient has no chest pain, troponin was negative, EKG has no acute ST-T change. 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 Wound care consulted. (5) Near syncope Current Visit: Yes Status: Acute Assessment and Plan: Patient reported family history of dizziness, he takes meclizine at home. Orthostatic BP was normal. Echo in 2018 was unremarkable. Carotid doppler was unremarkable. DVT Prophylaxis: SCDs. - Time Spent with Patient Total time spent is greater than 50% in coordination of care (as documented) at patient's floor/unit and/or counseling patient: Greater than 35 minutes Plan of Care Discussed with: patient Internal Medicine: Result - Labs CBC & Chem 7: 10/31/18 08:52 10/31/18 08:52 Labs: Short CBC 10/31/18 Range/Units 08:52 WBC 6.4 (4.3-11.1) K/mcL Hgb 12.7 L (12.9-16.9) g/dL Hct 37.9 (37.5-50.1) % Plt Count 265 (140-400) K/mcL BMP 10/31/18 08:52 Sodium 133 L Potassium 4.4 Chloride 100 Carbon Dioxide 25 BUN 17 Creatinine 0.99 Glucose 168 H Calcium 8.8 - Impressions Impressions Knee X-Ray 10/30/18 20:57 IMPRESSION: Bilateral tricompartmental osteoarthrosis, particularly of the patellofemoral compartment bilaterally (greater on the right) and of the lateral compartment of the right knee. D/ / Mar Nash Cha, MD / Mar Nash Cha, MD Interpreting Provider: Mar Nash Cha, MD Consult Discharge Plan - Plan Instructions: Syncope (ED) Referrals: Oscar Coon MD [Partnered Physician] - 11/07/18 11:10 am Keven Nichols MD [Primary Care Provider] - (Appointment has been requested. ) (1) Falls Qualifiers: Encounter type: subsequent encounter Qualified Code(s): W19.XXXD - Unspecified fall, subsequent encounter (2) Hypertension Qualifiers: Hypertension type: essential hypertension Qualified Code(s): I10 - Essential (primary) hypertension (3) CAD (coronary artery disease) Qualifiers: Coronary Disease-Associated Artery/Lesion type: [place] artery [place] vs. transplanted heart: [place] heart Associated angina: without angina Qualified Code(s): I25.10 - Atherosclerotic heart disease of [place] coronary artery without angina pectoris
[2018-11-01 02:33] LABS: BUN/Creatinine Ratio 18 (6-26); Blood Urea Nitrogen 18 mg/dL (8-23); Calcium 8.6 mg/dL (8.6-10.3); Carbon Dioxide 23 mEq/L (23-29); Chloride 101 mEq/L (98-107); Glucose 148 mg/dL (70-105); Osmolality,Calculated 281 (280-300); Potassium 4.2 mEq/L (3.5-5.1); Sodium 133 mEq/L (136-145); eGFR For African Americans > 60 (> 60); eGFR For Non-African Americans > 60 (> 60)
[2018-11-01 08:02] VITALS: BP 164/93
--- NOTE | 2018-11-01 08:48 | Physician Discharge Referral ---
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 Priority: Secondary Status: Chronic (5) Near syncope Priority: Primary Status: Acute Prognosis: Fair Aware of Diagnosis: Patient, Family Aware of Prognosis: Patient, Family - Transfer Medications Home Medications: Glimepiride [Amaryl] 1 mg PO BID 08/12/17 [History] Lisinopril [Zestril] 40 mg PO DAILY 08/12/17 [History] Metformin HCl [Glucophage] 1,000 mg PO BIDWM 08/12/17 [History] Metoprolol Succinate [Toprol Xl] 50 mg PO DAILY 08/12/17 [History] Sildenafil Citrate [Revatio] 20 - 100 mg PO DAILY PRN 08/12/17 [History] Simvastatin [Zocor] 20 mg PO HS 08/12/17 [History] Triamterene/Hydrochlorothiazid [Dyazide 37.5-25 Capsule] 1 cap PO DAILY 08/12/17 [History] Aspirin 81 mg PO DAILY 05/12/18 [History] Sulfamethoxazole/Trimeth DS [Bactrim Ds] 1 each PO BID 10/28/18 [History] Meclizine HCl [Verticalm] 12.5 - 25 mg PO TID PRN 10/29/18 [History] Allergies/Adverse Reactions: Allergy/AdvReac Type Severity Reaction Status Date / Time No Known Allergies Allergy Verified 11/30/17 16:44 - Respiratory Orders Smoking Cessation: Smoking cessation has been advised. For more information, call the [place] Tobacco Quit Line at 3-483-TCTC-NOW. - Advance Directives Code Status: Full Code CERTIFICATION: I certify that the transfer of the above named patient to an Extended Care Facility is necessary for the continuing treatment of the diagnosis listed. The above information is true and accurate reflection of patient's current condition. Confidential - Redisclosure prohibited without a patient's written consent.
--- NOTE | 2018-11-01 08:50 | Discharge Summary ---
- NOTES TO OUTPATIENT PROVIDER Notes to Outpatient Provider: f/u with PCP within 2-3 weeks. f/u with wound care center as scheduled. Date of Encounter: 11/01/18 Time of Encounter: 08:48 - Discharge Diagnosis (1) Falls Priority: Primary Status: Acute Qualifiers: Encounter type: subsequent encounter Qualified Code(s): W19.XXXD - Unspecified fall, subsequent encounter (2) Hypertension Priority: Secondary Status: Chronic Qualifiers: Hypertension type: essential hypertension Qualified Code(s): I10 - Essential (primary) hypertension (3) CAD (coronary artery disease) Priority: Secondary Status: Chronic Qualifiers: Coronary Disease-Associated Artery/Lesion type: [place] artery [place] vs. 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 Astorga is a 87 year old male with past medical history of diabetes, hypertension presents after a fall at home. Patient states about 1:30 in the afternoon patient was seated in his recliner when he attempted to stand up with the help of his walker he lost his balance and fell into the wall. He hit his head and fell down to the floor. Patient states he he was unable to get up on his own, did not lose consciousness, so was able to call for his who was unable to help him off the floor. EMS and brought him to the ED. Patient does not recall hitting his elbow although there is left elbow laceration. Patient states for the past year he has been having episodes of dizziness. This morning he did have an episode of dizziness and took a medication for this dizziness. On chart review patient has been taking meclizine for vertigo. On interview patient states he last saw his PCP 3 months ago although upon chart review patient saw his PCP on 10/22/18, where he was advised to continue his current blood pressure medications and to check his blood pressure regularly. Patient states he does not check his blood pressure regularly only about once a week. Patient is currently admitted for multiple episodes of falls. Skeletal screening including XR to left elbow and chest, Cervical CT, head CT, and facial CT have no acute fractures. Carotid doppler was negative for stenosis. He had a echo recently which was unremarkable. XR to [facility] showed bilateral tricompartmental osteoarthritis, Ortho was consulted, recommended conservative treatment and knee brace. PT/OT recommended inpatient rehab. Pt is discharged to rehab today, he will f/u with PCP and wound care center as scheduled Patient seen and examined in the room. He reported absence of dizziness overnight. Discharge discussed with: patient Time spent discussing smoking cessation with patient: more than 10 minutes - Time Spent with Patient Total time spent providing and/or coordinating discharge services: Time spent: Greater than 30 minutes - Discharge Medications Prescriptions: Continued Triamterene/Hydrochlorothiazid [Dyazide 37.5-25 Capsule] 1 cap PO DAILY Metoprolol Succinate [Toprol Xl] 50 mg PO DAILY Metformin HCl [Glucophage] 1,000 mg PO BIDWM Lisinopril [Zestril] 40 mg PO DAILY Glimepiride [Amaryl] 1 mg PO BID Simvastatin [Zocor] 20 mg PO HS Sildenafil Citrate [Revatio] 20 - 100 mg PO DAILY PRN PRN Reason: COITUS Aspirin 81 mg PO DAILY Sulfamethoxazole/Trimeth DS [Bactrim Ds] 1 each PO BID Meclizine HCl [Verticalm] 12.5 - 25 mg PO TID PRN PRN Reason: Vertigo Home Medications: Glimepiride [Amaryl] 1 mg PO BID 08/12/17 [History] Lisinopril [Zestril] 40 mg PO DAILY 08/12/17 [History] Metformin HCl [Glucophage] 1,000 mg PO BIDWM 08/12/17 [History] Metoprolol Succinate [Toprol Xl] 50 mg PO DAILY 08/12/17 [History] Sildenafil Citrate [Revatio] 20 - 100 mg PO DAILY PRN 08/12/17 [History] Simvastatin [Zocor] 20 mg PO HS 08/12/17 [History] Triamterene/Hydrochlorothiazid [Dyazide 37.5-25 Capsule] 1 cap PO DAILY 08/12/17 [History] Aspirin 81 mg PO DAILY 05/12/18 [History] Sulfamethoxazole/Trimeth DS [Bactrim Ds] 1 each PO BID 10/28/18 [History] Meclizine HCl [Verticalm] 12.5 - 25 mg PO TID PRN 10/29/18 [History] Allergies/Adverse Reactions: Allergy/AdvReac Type Severity Reaction Status Date / Time No Known Allergies Allergy Verified 11/30/17 16:44 Date of admission: 10/29/18 15:45 Primary care physician: Keven Nichols MD Consults: 10/29/18 01:20 Consult to Occupational Therapy [CONS] Routine Comment: Evaluate, develop and implement POC Reason for Consult: frequent falls Does patient have active BEDREST order?: No Is patient medically & hemodynamically stable?: Yes Patient assessed for mobility or mobilized this visit?: No Consult to Physical Therapy [CONS] Routine Comment: Evaluate, develop and implement POC Reason for Consult: frequent falls Does patient have active BEDREST order?: No Is patient medically & hemodynamically stable?: Yes Patient assessed for mobility or mobilized this visit?: No Consult to Wound Care [CONS] Routine Reason for Consult: Chronic wound on L Foot, wound care patient Call Completed: No 10/29/18 16:36 Consult to Orthopedic Surgery [CONS] Routine Consulting Provider: [facility] Reason for Consult: frequent fall Call Completed: Yes 10/30/18 09:10 Consult to Roll Clamp Operator [CONS] Routine Reason for SW Consult: PT/OT RECOMMEND IP SWING Anticipated date of discharge: 11/01/18 - Constitutional Vitals: Temp Pulse Resp BP Pulse Ox 98.5 F 72 16 164/93 97 11/01/18 07:54 11/01/18 07:54 11/01/18 07:54 11/01/18 07:54 11/01/18 07:54 General appearance: Present: A&O X 3 Exam: Gen: alert/orientedx3, no acute distress. Head: mild skin tear on R scalp and actinic keratosison Left scalp, normocephalic. ENT: no oropharyngeal erythema, mucous membranes moist. Neck: No thyromegaly appreciated. Neck supple no cervical lymphadenopathy. Resp: CTAB, no wheezing, rhonchi, or rhales. CV: RRR, Normal S1 and S2. No murmur, gallops, or rubs. GI/Abdominal exam: bowel sounds throughout, soft, non-tender, non- distended; no hepatosplenomegaly Skin:skin tear L elbow, and LUE. L foot wrapped in gauze, LLE with mild venous stasis changes and skin tears. Ext: No cyanosis +2 pitting edema LE b/l, pulses +2/4 bilaterally UE and LE. Neuro: no focal deficits, cooperative with exam. - Patient Status Disposition: Transfer SNF Condition: Fair Functional capacity at discharge: uses cane/walker Overall status at discharge: patient is progressing back to baseline - Discharge Instructions Instructions: Syncope (ED) Follow Up With: Oscar Coon MD [Partnered Physician] - 11/07/18 11:10 am Keven Nichols MD [Primary Care Provider] - (Appointment has been requested. ) Forms: ED Satisfaction Letter - Diet and Activity Activity: increase activity as tolerated Diet: diabetic diet, low fat, low cholesterol, low salt diet
[2018-11-01] MEDS: Metoprolol XL (24 HR) Succ 50 MG TAB.ER.24H PO SCH (08:52)
[2018-11-01] MEDS: Aspirin 81 MG TAB.CHEW PO SCH (08:52)
[2018-11-01] MEDS: Lisinopril 20 MG TABLET PO SCH (08:53)
[2018-11-01] MEDS: Sulfamethoxazole/Trimeth DS 1 EACH TABLET PO SCH (08:53)
[2018-11-01] MEDS: Doxycycline 100 MG CAPSULE PO SCH (08:53)
[2018-11-01] MEDS: Insulin LISPRO 300 UNITS/3 ML VIAL SQ SCH (08:54)
== END 2018-11-01 15:31 | DRG 312 ==
LOC: 3BNU 19:28 → EMEROOARM 19:28 → 3BNU 23:33
PROVIDERS: ADMIT Internal Medicine; ATTEND Internal Medicine

== ENCOUNTER 2019-03-12 11:24 | Observation (INO) ==
[2019-03-12 12:49] LABS: Basophils # 0.1 K/mcL (0.0-0.2); Basophils % 0.5 %; Eosinophils % 0.4 %; Hematocrit 40.8 % (37.5-50.1); Hemoglobin 13.3 g/dL (12.9-16.9); Immature Granulocytes % 0.5 % (0-4); Lymphocytes # 0.9 K/mcL (0.6-4.6); Lymphocytes % 10.2 %; Mean Corpuscular HGB Conc 32.6 g/dL (31.6-35.5); Mean Corpuscular Hemoglobin 28.9 pg (28.0-33.3); Mean Corpuscular Volume 88.5 fL (83.0-100.0); Mean Platelet Volume 9.3 fL (9.4-12.4); Monocytes # 0.5 K/mcL (0.0-1.3); Monocytes % 5.5 %; Neutrophils # 7.7 K/mcL (1.6-8.9); Platelet Count 271 K/mcL (140-400); Red Blood Count 4.61 M/mcL (4.19-5.50); Red Cell Distribution Width 13.4 % (11.5-14.5); Segmented Neutrophils % 82.9 %; White Blood Count 9.3 K/mcL (4.3-11.1)
[2019-03-12 13:19] LABS: BUN/Creatinine Ratio 26 (6-26); Blood Urea Nitrogen 41 mg/dL (8-23); Calcium 9.6 mg/dL (8.6-10.3); Carbon Dioxide 21 mEq/L (23-29); Chloride 101 mEq/L (98-107); Glucose 69 mg/dL (70-105); Osmolality,Calculated 284 (280-300); Potassium 4.8 mEq/L (3.5-5.1); Sodium 133 mEq/L (136-145); Troponin I < 0.03 ng/mL (< 0.04); eGFR For African Americans 51 (> 60); eGFR For Non-African Americans 42 (> 60)
[2019-03-12] MEDS ORDERED: 0.9 % Sodium Chloride 1,000 ML IVC ONE (13:50)
[2019-03-12] MEDS ORDERED: Ondansetron ODT 4 MG TAB.RAPDIS SL PRN (15:57)
[2019-03-12] MEDS ORDERED: Naloxone 0.4 MG/ML INJ IVP PRN (15:57)
[2019-03-12] MEDS ORDERED: *HR* Dextrose 50 % in Water (Syg) 50 ML SYRINGE IVP PRN (16:00)
[2019-03-12] MEDS ORDERED: Dextrose Gel 15 GM/37.5 ML TUBE PO PRN ×2 (16:00)
[2019-03-12] MEDS ORDERED: D5% in Water 1,000 ML IVC PRN (16:00)
[2019-03-12] MEDS ORDERED: 0.9 % Sodium Chloride 1,000 ML IVC SCH (16:00)
[2019-03-12 16:16] LABS: Magnesium 2.4 mg/dL (1.6-2.6)
[2019-03-12] MEDS: Acetaminophen 325 MG TABLET PO PRN (18:04)
[2019-03-12] MEDS: Insulin LISPRO 300 UNITS/3 ML VIAL SQ SCH (18:13)
[2019-03-12] MEDS ORDERED: Insulin LISPRO 300 UNITS/3 ML VIAL SQ SCH (21:00)
[2019-03-12 21:48] LABS: Hematocrit 35.7 % (37.5-50.1); Hemoglobin 11.9 g/dL (12.9-16.9)
[2019-03-13 02:54] LABS: BUN/Creatinine Ratio 25 (6-26); Blood Urea Nitrogen 34 mg/dL (8-23); Calcium 8.7 mg/dL (8.6-10.3); Carbon Dioxide 25 mEq/L (23-29); Chloride 101 mEq/L (98-107); Glucose 103 mg/dL (70-105); Osmolality,Calculated 282 (280-300); Sodium 132 mEq/L (136-145); eGFR For African Americans > 60 (> 60); eGFR For Non-African Americans 50 (> 60)
[2019-03-13 03:12] LABS: Hematocrit 37.2 % (37.5-50.1); Hemoglobin 11.6 g/dL (12.9-16.9); Mean Corpuscular HGB Conc 31.2 g/dL (31.6-35.5); Mean Platelet Volume 9.7 fL (9.4-12.4); Platelet Count 208 K/mcL (140-400); Red Cell Distribution Width 13.5 % (11.5-14.5); White Blood Count 6.7 K/mcL (4.3-11.1)
[2019-03-13] MEDS: Acetaminophen 325 MG TABLET PO PRN (03:22)
[2019-03-13 06:00] LABS: Hematocrit 32.7 % (37.5-50.1); Hemoglobin 10.8 g/dL (12.9-16.9)
[2019-03-13] MEDS: Insulin LISPRO 300 UNITS/3 ML VIAL SQ SCH (09:59)
[2019-03-13 10:03] LABS: Hematocrit 37.3 % (37.5-50.1); Hemoglobin 12.4 g/dL (12.9-16.9)
[2019-03-13 14:11] VITALS: BP 142/69
== END 2019-03-13 14:10 | disposition home or self-care (01) ==
LOC: 3BNU 11:24 → EMEROOARM 11:24 → SUATTDRO 15:23 → 3BNU 15:59
PROVIDERS: ADMIT Family Medicine; ATTEND Family Medicine

== ENCOUNTER 2020-01-10 21:16 | Observation (INO) ==
[2020-01-10] MEDS ORDERED: 0.9 % Sodium Chloride 1,000 ML IVC ONE (21:31)
[2020-01-10 22:28] LABS: Basophils # 0.1 K/mcL (0.0-0.2); Basophils % 0.3 %; Hematocrit 41.9 % (37.5-50.1); Hemoglobin 13.1 g/dL (12.9-16.9); Immature Granulocytes % 0.4 % (0-4); Lymphocytes # 0.6 K/mcL (0.6-4.6); Lymphocytes % 2.7 %; Mean Corpuscular HGB Conc 31.3 g/dL (31.6-35.5); Mean Corpuscular Volume 86.2 fL (83.0-100.0); Mean Platelet Volume 9.4 fL (9.4-12.4); Monocytes # 1.2 K/mcL (0.0-1.3); Monocytes % 5.6 %; Neutrophils # 19.1 K/mcL (1.6-8.9); Platelet Count 266 K/mcL (140-400); Red Blood Count 4.86 M/mcL (4.19-5.50); Red Cell Distribution Width 14.1 % (11.5-14.5)
[2020-01-10 22:37] LABS: Prothrombin Time 12.1 Seconds (9.4-12.1)
[2020-01-10 22:42] LABS: Bacteria,Urine Few per hpf (None-Few); Bilirubin,Urine Negative (Negative); Blood,Urine Negative (Negative); Clarity,Urine Clear (Clear); Color,Urine Light-Yellow (Yellow); Glucose,Urine (UA) 70 mg/dL (Normal); Ketones,Urine Trace mg/dL (Negative); Leukocyte Esterase,Urine Negative (Negative); Mucus,Urine Few per lpf (None-Few); Nitrite,Urine Negative (Negative); Protein,Urine 30 mg/dL (Neg-Trace); RBC,Urine 0-3 per hpf (0-3); Specific Gravity,Urine 1.021 (1.010-1.025); Squamous Epithelial Cell,Urine Few per hpf (None-Few); Urobilinogen,Urine Normal (Normal); WBC,Urine 0-3 per hpf (0-3)
[2020-01-10] MEDS ORDERED: Vancomycin 1,500 MG/265 ML IV.SOLN IVPB ONE (23:11)
[2020-01-10] MEDS ORDERED: Piperacillin/Tazobactam 3.375 GM in 0.9 % Sodium Chloride Mini Bag 100 ML IVPB ONE (23:11)
[2020-01-10 23:32] LABS: Alanine Aminotransferase 7 Units/L (7-52); Albumin 3.7 g/dL (3.5-5.7); Albumin/Globulin Ratio 1.5 (1.1-2.2); Alkaline Phosphatase 57 Units/L (34-104); Aspartate Amino Transferase 15 Units/L (13-39); BUN/Creatinine Ratio 23 (6-26); Bilirubin,Indirect 0.3 mg/dL (0.0-1.0); Bilirubin,Total 0.3 mg/dL (0.3-1.0); Blood Urea Nitrogen 22 mg/dL (8-23); Calcium 8.9 mg/dL (8.6-10.3); Carbon Dioxide 24 mEq/L (23-29); Chloride 99 mEq/L (98-107); Globulin 2.5 g/dL (2.4-3.5); Glucose 210 mg/dL (70-105); Magnesium 1.6 mg/dL (1.6-2.6); Osmolality,Calculated 286 (280-300); Potassium 4.2 mEq/L (3.5-5.1); Sodium 133 mEq/L (136-145); Total Protein 6.2 g/dL (6.4-8.9); Troponin I < 0.03 ng/mL (< 0.04); eGFR For African Americans > 60 (> 60); eGFR For Non-African Americans > 60 (> 60)
[2020-01-11] MEDS ORDERED: Ondansetron 4 MG/2 ML VIAL IVP PRN (02:31)
[2020-01-11] MEDS ORDERED: Naloxone 0.4 MG/ML INJ IVP PRN (02:31)
[2020-01-11] MEDS ORDERED: Acetaminophen 325 MG TABLET PO PRN (02:31)
[2020-01-11] MEDS ORDERED: *HR* Dextrose 50 % in Water (Vial) 50 ML VIAL IVP PRN (02:33)
[2020-01-11] MEDS ORDERED: D5% in Water 1,000 ML IVC PRN (02:33)
[2020-01-11] MEDS ORDERED: Dextrose Gel 15 GM/37.5 ML TUBE PO PRN ×2 (02:33)
[2020-01-11] MEDS ORDERED: 0.9 % Sodium Chloride 1,000 ML IVC SCH (02:45)
[2020-01-11 03:39] LABS: Lymphocytes % 4.1 %; Red Cell Distribution Width 14.1 % (11.5-14.5); White Blood Count 24.9 K/mcL (4.3-11.1)
[2020-01-11 03:40] LABS: Basophils # 0.1 K/mcL (0.0-0.2); Basophils % 0.2 %; Hematocrit 42.4 % (37.5-50.1); Hemoglobin 13.4 g/dL (12.9-16.9); Immature Granulocytes % 0.8 % (0-4); Immature Platelets 3.4 % (1.1-6.1); Mean Corpuscular HGB Conc 31.6 g/dL (31.6-35.5); Mean Corpuscular Volume 85.5 fL (83.0-100.0); Mean Platelet Volume 10.2 fL (9.4-12.4); Monocytes # 1.5 K/mcL (0.0-1.3); Monocytes % 6.2 %; Neutrophils # 22.1 K/mcL (1.6-8.9); Platelet Count 223 K/mcL (140-400); Red Blood Count 4.96 M/mcL (4.19-5.50); Segmented Neutrophils % 88.7 %
[2020-01-11 03:53] LABS: Alanine Aminotransferase 7 Units/L (7-52); Albumin 3.9 g/dL (3.5-5.7); Albumin/Globulin Ratio 1.2 (1.1-2.2); Alkaline Phosphatase 61 Units/L (34-104); Aspartate Amino Transferase 14 Units/L (13-39); BUN/Creatinine Ratio 20 (6-26); Bilirubin,Total 0.6 mg/dL (0.3-1.0); Blood Urea Nitrogen 19 mg/dL (8-23); Carbon Dioxide 24 mEq/L (23-29); Chloride 100 mEq/L (98-107); Globulin 3.3 g/dL (2.4-3.5); Glucose 136 mg/dL (70-105); Osmolality,Calculated 284 (280-300); Phosphorous 2.2 mg/dL (2.7-4.5); Potassium 3.8 mEq/L (3.5-5.1); Sodium 135 mEq/L (136-145); Total Protein 7.2 g/dL (6.4-8.9); eGFR For African Americans > 60 (> 60); eGFR For Non-African Americans > 60 (> 60)
[2020-01-11] MEDS: Piperacillin/Tazobactam 3.375 GM in 0.9 % Sodium Chloride Mini Bag 100 ML IVPB SCH ×2 (09:27→16:55)
[2020-01-11] MEDS: Insulin LISPRO 300 UNITS/3 ML VIAL SQ SCH ×3 (09:35→15:58)
[2020-01-11] MEDS: Aspirin Enteric Coated 81 MG Tablet PO SCH (10:27)
[2020-01-11] MEDS: Ascorbic Acid 500 MG TABLET PO SCH (10:28)
[2020-01-11] MEDS ORDERED: Ipratropium/Albuterol Neb 3 ML IH PRN (10:30)
[2020-01-11] MEDS: Ipratropium/Albuterol Neb 3 ML IH SCH ×3 (11:11→22:49)
[2020-01-11] MEDS: Vancomycin 1,250 MG/262.5 ML IV.SOLN IVPB SCH (13:56)
[2020-01-11] MEDS ORDERED: Isovue-370 500 ML BOTTLE IVP ONE (15:38)
[2020-01-11] MEDS: Neosporin OINT 15 GM TUBE TP SCH (16:51)
[2020-01-11] MEDS: Metoprolol XL (24 HR) Succ 25 MG TAB.ER.24H PO SCH (16:55)
[2020-01-11] MEDS: *HR* Heparin 5,000 UNIT/ML VIAL SQ SCH (16:55)
[2020-01-11] MEDS ORDERED: Insulin LISPRO 300 UNITS/3 ML VIAL SQ SCH ×2 (21:00)
[2020-01-12] MEDS: Vancomycin 1,250 MG/262.5 ML IV.SOLN IVPB SCH (00:35)
[2020-01-12] MEDS: Piperacillin/Tazobactam 3.375 GM in 0.9 % Sodium Chloride Mini Bag 100 ML IVPB SCH ×3 (00:35→18:42)
[2020-01-12 01:50] LABS: Basophils % 0.3 %; Eosinophils % 0.1 %; Hematocrit 33.6 % (37.5-50.1); Immature Granulocytes % 0.5 % (0-4); Lymphocytes % 7.4 %; Mean Corpuscular HGB Conc 32.4 g/dL (31.6-35.5); Mean Corpuscular Hemoglobin 27.7 pg (28.0-33.3); Mean Corpuscular Volume 85.3 fL (83.0-100.0); Mean Platelet Volume 9.5 fL (9.4-12.4); Monocytes # 1.2 K/mcL (0.0-1.3); Monocytes % 8.7 %; Neutrophils # 11.3 K/mcL (1.6-8.9); Platelet Count 220 K/mcL (140-400); Red Blood Count 3.94 M/mcL (4.19-5.50); Red Cell Distribution Width 14.4 % (11.5-14.5); White Blood Count 13.6 K/mcL (4.3-11.1)
[2020-01-12 01:57] LABS: Hemoglobin 10.9 g/dL (12.9-16.9)
[2020-01-12 02:04] LABS: BUN/Creatinine Ratio 19 (6-26); Blood Urea Nitrogen 19 mg/dL (8-23); Calcium 8.5 mg/dL (8.6-10.3); Carbon Dioxide 26 mEq/L (23-29); Chloride 102 mEq/L (98-107); Glucose 144 mg/dL (70-105); Magnesium 1.8 mg/dL (1.6-2.6); Osmolality,Calculated 285 (280-300); Phosphorous 2.7 mg/dL (2.7-4.5); Potassium 3.6 mEq/L (3.5-5.1); Sodium 135 mEq/L (136-145); eGFR For African Americans > 60 (> 60); eGFR For Non-African Americans > 60 (> 60)
[2020-01-12] MEDS: Ipratropium/Albuterol Neb 3 ML IH SCH ×3 (04:27→16:47)
[2020-01-12] MEDS: *HR* Heparin 5,000 UNIT/ML VIAL SQ SCH ×2 (05:37→18:34)
[2020-01-12] MEDS: Insulin LISPRO 300 UNITS/3 ML VIAL SQ SCH ×3 (07:41→17:08)
[2020-01-12] MEDS: Neosporin OINT 15 GM TUBE TP SCH (08:40)
[2020-01-12] MEDS: Ascorbic Acid 500 MG TABLET PO SCH (08:40)
[2020-01-12] MEDS: Aspirin Enteric Coated 81 MG Tablet PO SCH (08:40)
[2020-01-12] MEDS ORDERED: Cyanocobalamin (B-12) 1,000 MCG TABLET PO SCH (09:00)
[2020-01-12 15:46] VITALS: BP 152/72
[2020-01-12] MEDS: Metoprolol XL (24 HR) Succ 25 MG TAB.ER.24H PO SCH (18:43)
[2020-01-13] MEDS ORDERED: hydroCHLOROthiazide 25 MG TABLET PO SCH (09:00)
== END 2020-01-12 21:00 | disposition critical access hospital (66) ==
LOC: 3BNU 21:16 → EMEROOARM 21:16 → SUATTDRO 01-11 01:18 → 3BNU 01-11 01:50
PROVIDERS: ADMIT Family Medicine; ATTEND Internal Medicine

== ENCOUNTER 2020-07-05 07:30 | Inpatient (IN) ==
[2020-07-05] MEDS ORDERED: Tdap (Boostrix) Vaccine 0.5 ML SYRINGE IM ONE (07:49)
[2020-07-05] MEDS ORDERED: Polymyxn-B/Trimeth Opth Drops 10 ML BOTTLE BOTH EYES ONE (08:26)
[2020-07-05 09:47] LABS: Basophils % 0.4 %; Eosinophils # 0.1 K/mcL (0.0-0.6); Eosinophils % 0.6 %; Hematocrit 35.8 % (37.5-50.1); Hemoglobin 11.9 g/dL (12.9-16.9); Immature Granulocytes % 0.4 % (0-4); Lymphocytes % 12.1 %; Mean Corpuscular HGB Conc 33.2 g/dL (31.6-35.5); Mean Corpuscular Hemoglobin 29.1 pg (28.0-33.3); Mean Corpuscular Volume 87.5 fL (83.0-100.0); Mean Platelet Volume 9.7 fL (9.4-12.4); Monocytes # 0.8 K/mcL (0.0-1.3); Monocytes % 8.8 %; Neutrophils # 6.7 K/mcL (1.6-8.9); Platelet Count 263 K/mcL (140-400); Red Blood Count 4.09 M/mcL (4.19-5.50); Red Cell Distribution Width 14.4 % (11.5-14.5); Segmented Neutrophils % 77.7 %; White Blood Count 8.6 K/mcL (4.3-11.1)
[2020-07-05 09:56] LABS: INR 1.1; Prothrombin Time 12.2 Seconds (9.4-12.1)
[2020-07-05 10:11] LABS: Bilirubin,Urine Negative (Negative); Blood,Urine Negative (Negative); Clarity,Urine Clear (Clear); Color,Urine Light-Yellow (Yellow); Glucose,Urine (UA) Normal (Normal); Ketones,Urine Negative (Negative); Leukocyte Esterase,Urine Negative (Negative); Nitrite,Urine Negative (Negative); Protein,Urine Trace mg/dL (Neg-Trace); Specific Gravity,Urine 1.019 (1.010-1.025); Urobilinogen,Urine Normal (Normal)
[2020-07-05 10:37] LABS: Alanine Aminotransferase 6 Units/L (7-52); Albumin 3.1 g/dL (3.5-5.7); Albumin/Globulin Ratio 1.1 (1.1-2.2); Alkaline Phosphatase 66 Units/L (34-104); Aspartate Amino Transferase 12 Units/L (13-39); BUN/Creatinine Ratio 21 (6-26); Bilirubin,Total 0.3 mg/dL (0.3-1.0); Blood Urea Nitrogen 15 mg/dL (8-23); Calcium 8.5 mg/dL (8.6-10.3); Carbon Dioxide 30 mEq/L (23-29); Chloride 98 mEq/L (98-107); Globulin 2.9 g/dL (2.4-3.5); Glucose 168 mg/dL (70-105); Osmolality,Calculated 287 (280-300); Potassium 3.6 mEq/L (3.5-5.1); Sodium 136 mEq/L (136-145); Troponin I < 0.03 ng/mL (< 0.04); eGFR For African Americans > 60 (> 60); eGFR For Non-African Americans > 60 (> 60)
[2020-07-05] MEDS ORDERED: Naloxone 0.4 MG/ML INJ IVP PRN (10:52)
[2020-07-05] MEDS ORDERED: Perflutren Lipid Microsphere 1.3 ML in 0.9 % Sodium Chloride 8.7 ML IVP PRN (14:46)
[2020-07-05] MEDS ORDERED: D5% in Water 1,000 ML IVC PRN (14:49)
[2020-07-05] MEDS ORDERED: *HR* Dextrose 50 % in Water (Vial) 50 ML VIAL IVP PRN (14:49)
[2020-07-05] MEDS ORDERED: Dextrose Gel 15 GM/37.5 ML TUBE PO PRN ×2 (14:49)
[2020-07-05 15:22] LABS: Estimated Average Glucose 174 mg/dl; Hemoglobin A1C 7.7 %
[2020-07-05] MEDS: Gentamicin Oint 15 GM TUBE TP SCH (15:55)
[2020-07-05] MEDS ORDERED: Bisacodyl 10 MG RECTAL SUPPOSITORY RC PRN (16:57)
[2020-07-05] MEDS ORDERED: *HR* LORazepam 0.5 MG TABLET SL PRN (16:57)
[2020-07-05] MEDS: Metoprolol XL (24 HR) Succ 50 MG TAB.ER.24H PO SCH (18:08)
[2020-07-05] MEDS: *HR* Heparin 5,000 UNIT/ML VIAL SQ SCH (18:08)
[2020-07-05] MEDS: Insulin LISPRO 300 UNITS/3 ML VIAL SUBQ SCH ×2 (18:10→21:42)
[2020-07-05] MEDS: haloperidoL 1 MG TABLET PO SCH (21:41)
[2020-07-06] MEDS: Melatonin 3 MG TABLET PO SCH ×2 (00:49→22:25)
[2020-07-06 04:19] LABS: Folate 5.8 ng/mL (3.0-16.0)
[2020-07-06 04:27] LABS: Thyroid Stimulating Hormone 2.341 mcIU/mL (0.340-5.600)
[2020-07-06] MEDS: *HR* Heparin 5,000 UNIT/ML VIAL SQ SCH ×2 (05:43→16:57)
[2020-07-06] MEDS: Insulin LISPRO 300 UNITS/3 ML VIAL SUBQ SCH ×4 (07:55→22:25)
[2020-07-06] MEDS: Gentamicin Oint 15 GM TUBE TP SCH (07:57)
[2020-07-06] MEDS: Metoprolol XL (24 HR) Succ 50 MG TAB.ER.24H PO SCH (16:58)
[2020-07-06] MEDS: haloperidoL 1 MG TABLET PO SCH (22:25)
[2020-07-07] MEDS ORDERED: Chloraseptic Spray 177 ML BOTTLE MM PRN (01:52)
[2020-07-07] MEDS: *HR* Heparin 5,000 UNIT/ML VIAL SQ SCH ×2 (05:36→18:22)
[2020-07-07] MEDS: Insulin LISPRO 300 UNITS/3 ML VIAL SUBQ SCH ×4 (07:49→20:24)
[2020-07-07] MEDS: Gentamicin Oint 15 GM TUBE TP SCH (07:50)
[2020-07-07] MEDS: Metoprolol XL (24 HR) Succ 50 MG TAB.ER.24H PO SCH (18:22)
[2020-07-07] MEDS: haloperidoL 1 MG TABLET PO SCH (20:19)
[2020-07-07] MEDS: Melatonin 3 MG TABLET PO SCH (20:19)
[2020-07-08] MEDS: Insulin LISPRO 300 UNITS/3 ML VIAL SUBQ SCH (07:56)
[2020-07-08] MEDS: Gentamicin Oint 15 GM TUBE TP SCH (07:56)
[2020-07-08 10:32] VITALS: BP 134/75
[2020-07-08] MEDS ORDERED: Artificial Tears SOLN 15 ML BOTTLE BOTH EYES SCH (11:10)
== END 2020-07-08 12:43 | DRG 884 ==
LOC: EMEROOARM 07:30 → 3BNU 07:30 → SUATTDRO 11:38 → 3BNU 12:16
PROVIDERS: ADMIT Internal Medicine; ATTEND Internal Medicine